=== PATIENT | male | born 1955 | race Two or more races ===

== ENCOUNTER 2017-09-15 08:26 | Inpatient (IN) | payer MEDICARE, BC ==
[2017-09-15] MEDS: SOD CHLORIDE 0.9% 1,000 ML IV ×3 (10:23→22:48)
[2017-09-15 10:34] LABS: ALANINE AMINOTRANSFERASE 36 IU/L (13-69); ALBUMIN 2.5 g/dl (3.3-4.9); ALBUMIN/GLOBULIN RATIO 0.75; ALKALINE PHOSPHATASE 126 IU/L (42-121); ANION GAP 18 (8-16); ASPARTATE AMINO TRANSFERASE 31 IU/L (15-46); BILIRUBIN,INDIRECT 0.5 mg/dl (0-1.1); BILIRUBIN,TOTAL 0.5 mg/dl (0.2-1.3); BLOOD UREA NITROGEN 92 mg/dl (7-20); CALCIUM 8.6 mg/dl (8.4-10.2); CARBON DIOXIDE 27 mmol/L (21-31); CHLORIDE 96 mmol/L (97-110); CREATININE 3.52 mg/dl (0.61-1.24); GLUCOSE 312 mg/dl (70-220); POTASSIUM 3.9 mmol/L (3.5-5.1); SODIUM 137 mmol/L (135-144); TOTAL PROTEIN 5.8 g/dl (6.1-8.1)
[2017-09-15 10:38] LABS: INR 1.22; PROTIME 15.6 Sec (11.9-14.9); PT RATIO 1.2
[2017-09-15 10:39] LABS: ABNORMAL IP MESSAGE 1; HEMATOCRIT 11.6 % (42.0-52.0); MEAN CORPUSCULAR VOLUME 93.5 fl (82.0-101.0); MEAN PLATELET VOLUME 11.3 fl (7.4-10.4); PLATELET COUNT 148 10^3/UL (140-415); POSITIVE DIFF @See below; RED BLOOD COUNT 1.24 10^6/ul (4.70-6.10); RED CELL DISTRIBUTION WIDTH 16.7 % (11.5-14.5)
[2017-09-15 10:39] LABS: WHITE BLOOD COUNT 8.4 10^3/ul (4.8-10.8)
[2017-09-15 10:41] LABS: ADD MAN DIFF? YES; HEMOGLOBIN 3.6 g/dl (14.0-18.0)
[2017-09-15 10:44] LABS: TROPONIN-I 0.046 ng/ml (0.00-0.12)
[2017-09-15] MEDS: PANTOPRAZOLE IV 80 MG in SOD CHLORIDE 0.9% 100 ML IVPB (10:44)
[2017-09-15] MEDS: OCTREOTIDE 500 MCG in SOD CHLORIDE 0.9% 49 ML IV (10:45)
[2017-09-15] MEDS: OCTREOTIDE 50 MCG in SOD CHLORIDE 0.9% 25 ML IVPB (10:46)
[2017-09-15 11:34] LABS: ANISOCYTOSIS 2+ (0-0); BAND NEUTROPHILS #M 0.1 10^3/ul (0.0-0.6); BAND NEUTROPHILS % (M) 2 % (0-4); EOSINOPHILS % (M) 2 % (0-7); HYPOCHROMASIA 2+ (0-0); LYMPHOCYTES #M 1.3 10^3/ul (0.8-2.9); LYMPHOCYTES % (M) 16 % (15-51); MICROCYTOSIS 1+ (0-0); MONOCYTE #M 0.3 10^3/ul (0.3-0.9); MONOCYTES % (M) 4 % (0-11); POLYCHROMASIA 3+ (0-0); RBC MORPHOLOGY COMMENT @See below; SEG NEUT #M 6.5 10^3/ul (1.7-7.5); SEGMENTED NEUTROPHILS (M) % 77 % (39-77); WBC MORPHOLOGY COMMENT @See below
[2017-09-15] MEDS ORDERED: ACETAMINOPHEN 325 MG TAB PO (15:00)
[2017-09-15] MEDS: ONDANSETRON 4 MG INJ IV (16:37)
[2017-09-15] MEDS: PANTOPRAZOLE IV 80 MG in SOD CHLORIDE 0.9% 100 ML IV (16:37)
[2017-09-15 17:22] LABS: HEMATOCRIT 15.1 % (42.0-52.0)
[2017-09-15 18:09] LABS: ADD MAN DIFF? NO
[2017-09-15 18:11] LABS: ABNORMAL IP MESSAGE 1; EOSINOPHILS # 0.3 10^3/ul (0.0-0.5); EOSINOPHILS % 4.8 % (0.0-7.0); LYMPHOCYTES # 1.1 10^3/ul (0.8-2.9); LYMPHOCYTES % 18.8 % (15.0-51.0); MEAN CORPUSCULAR HEMOGLOBIN 29.3 pg (29.0-33.0); MEAN CORPUSCULAR HGB CONC 32.7 g/dl (32.0-37.0); MEAN CORPUSCULAR VOLUME 89.8 fl (82.0-101.0); MEAN PLATELET VOLUME 11.1 fl (7.4-10.4); MONOCYTE # 0.5 10^3/ul (0.3-0.9); MONOCYTES % 8.3 % (0.0-11.0); NEUTROPHIL # 3.9 10^3/ul (1.6-7.5); NEUTROPHILS % 67.7 % (39.0-77.0); PLATELET COUNT 100 10^3/UL (140-415); POSITIVE DIFF @See below; RED BLOOD COUNT 1.67 10^6/ul (4.70-6.10); RED CELL DISTRIBUTION WIDTH 15.9 % (11.5-14.5)
[2017-09-15 18:11] LABS: WHITE BLOOD COUNT 5.7 10^3/ul (4.8-10.8)
[2017-09-15] MEDS: SOD CHLORIDE 0.9% 250 ML IV (18:30)
[2017-09-15 18:32] LABS: HEMOGLOBIN 4.9 g/dl (14.0-18.0)
[2017-09-15] MEDS ORDERED: GLUCOSE GEL 15 GRAM TUBE BUCCAL (19:00)
[2017-09-15] MEDS ORDERED: GLUCAGON 1 MG INJ IM (19:00)
[2017-09-15] MEDS ORDERED: GLUCOSE GEL 15 GRAM TUBE PO ×2 (19:00)
[2017-09-15] MEDS ORDERED: DEXTROSE 50% 50 ML SYRINGE IV ×2 (19:00)
[2017-09-15 20:37] LABS: IMMEDIATE SPIN CROSSMATCH 1 8
[2017-09-15] MEDS: INSULIN ASPART [NOVOLOG] 3 ML PEN SC (21:00)
[2017-09-15] MEDS: LACTULOSE 30ML CUP PO (21:00)
[2017-09-15 22:50] LABS: ADD MAN DIFF? NO
[2017-09-15 22:51] LABS: ABNORMAL IP MESSAGE 1; BASOPHILS % 0.3 % (0.0-2.0); EOSINOPHILS # 0.3 10^3/ul (0.0-0.5); EOSINOPHILS % 5.3 % (0.0-7.0); HEMATOCRIT 20.2 % (42.0-52.0); LYMPHOCYTES # 1.3 10^3/ul (0.8-2.9); LYMPHOCYTES % 21.5 % (15.0-51.0); MEAN CORPUSCULAR HGB CONC 33.2 g/dl (32.0-37.0); MEAN CORPUSCULAR VOLUME 87.4 fl (82.0-101.0); MEAN PLATELET VOLUME 10.2 fl (7.4-10.4); MONOCYTE # 0.4 10^3/ul (0.3-0.9); MONOCYTES % 6.9 % (0.0-11.0); NEUTROPHILS % 65.7 % (39.0-77.0); PLATELET COUNT 95 10^3/UL (140-415); POSITIVE DIFF @See below; RED BLOOD COUNT 2.31 10^6/ul (4.70-6.10); RED CELL DISTRIBUTION WIDTH 15.9 % (11.5-14.5)
[2017-09-15 22:51] LABS: WHITE BLOOD COUNT 6.1 10^3/ul (4.8-10.8)
[2017-09-15 22:57] LABS: HEMOGLOBIN 6.7 g/dl (14.0-18.0)
[2017-09-15 23:10] LABS: ANION GAP 12 (8-16); BLOOD UREA NITROGEN 94 mg/dl (7-20); CARBON DIOXIDE 26 mmol/L (21-31); CHLORIDE 99 mmol/L (97-110); CREATININE 3.38 mg/dl (0.61-1.24); GLUCOSE 183 mg/dl (70-220); SODIUM 133 mmol/L (135-144)
[2017-09-16] MEDS: HYPOGLYCEMIA PROTOCOL when Glucose is <70 mg/dL or symptomatic <90 mg/dL. XX (01:38)
[2017-09-16] MEDS: Discontinue current oral sulfonylureas (glyburide, glipizide, and/or glimepiride) prior to XX (01:38)
[2017-09-16] MEDS: ACCU-CHEK XX (02:00)
[2017-09-16] MEDS: INSULIN GLARGINE [LANtus] 3 ML PEN SC ×2 (02:31→20:24)
[2017-09-16] MEDS: ESCITALOPRAM 10 MG TAB PO ×2 (02:31→20:10)
[2017-09-16] MEDS: INSULIN ASPART [NOVOLOG] 3 ML PEN SC ×5 (02:32→20:15)
[2017-09-16] MEDS: SOD CHLORIDE 0.9% 1,000 ML IV ×2 (05:38→19:00)
[2017-09-16] MEDS: NIFEdipine (XL) 30 MG TAB PO (08:09)
[2017-09-16] MEDS: MULTIVITAMINS THERAPEUTIC TAB PO (08:16)
[2017-09-16 10:48] LABS: ABNORMAL IP MESSAGE 1; BASOPHILS % 0.3 % (0.0-2.0); EOSINOPHILS # 0.3 10^3/ul (0.0-0.5); EOSINOPHILS % 5.4 % (0.0-7.0); HEMATOCRIT 19.6 % (42.0-52.0); LYMPHOCYTES # 1.1 10^3/ul (0.8-2.9); MEAN CORPUSCULAR HEMOGLOBIN 28.9 pg (29.0-33.0); MEAN CORPUSCULAR HGB CONC 33.7 g/dl (32.0-37.0); MEAN PLATELET VOLUME 11.3 fl (7.4-10.4); MONOCYTE # 0.4 10^3/ul (0.3-0.9); MONOCYTES % 6.2 % (0.0-11.0); NEUTROPHIL # 4.5 10^3/ul (1.6-7.5); NEUTROPHILS % 70.6 % (39.0-77.0); PLATELET COUNT 109 10^3/UL (140-415); POSITIVE DIFF @See below; RED BLOOD COUNT 2.28 10^6/ul (4.70-6.10)
[2017-09-16 10:48] LABS: WHITE BLOOD COUNT 6.3 10^3/ul (4.8-10.8)
[2017-09-16 10:51] LABS: HEMOGLOBIN 6.6 g/dl (14.0-18.0)
[2017-09-16 10:52] LABS: ANION GAP 13 (8-16); BLOOD UREA NITROGEN 88 mg/dl (7-20); CALCIUM 7.8 mg/dl (8.4-10.2); CARBON DIOXIDE 26 mmol/L (21-31); CHLORIDE 102 mmol/L (97-110); CREATININE 3.26 mg/dl (0.61-1.24); GLUCOSE 136 mg/dl (70-220); PHOSPHORUS 5.1 mg/dl (2.5-4.9); POTASSIUM 3.4 mmol/L (3.5-5.1); SODIUM 138 mmol/L (135-144)
[2017-09-16 10:54] LABS: ADD MAN DIFF? NO
[2017-09-16 16:30] LABS: ADD MAN DIFF? NO
[2017-09-16 16:33] LABS: BASOPHILS % 0.4 % (0.0-2.0); EOSINOPHILS # 0.3 10^3/ul (0.0-0.5); EOSINOPHILS % 3.6 % (0.0-7.0); HEMATOCRIT 26.4 % (42.0-52.0); HEMOGLOBIN 8.9 g/dl (14.0-18.0); LYMPHOCYTES % 14.5 % (15.0-51.0); MEAN CORPUSCULAR HEMOGLOBIN 28.9 pg (29.0-33.0); MEAN CORPUSCULAR HGB CONC 33.7 g/dl (32.0-37.0); MEAN CORPUSCULAR VOLUME 85.7 fl (82.0-101.0); MONOCYTE # 0.5 10^3/ul (0.3-0.9); MONOCYTES % 7.4 % (0.0-11.0); NEUTROPHIL # 5.1 10^3/ul (1.6-7.5); NEUTROPHILS % 73.7 % (39.0-77.0); PLATELET COUNT 107 10^3/UL (140-415); RED BLOOD COUNT 3.08 10^6/ul (4.70-6.10); RED CELL DISTRIBUTION WIDTH 15.1 % (11.5-14.5)
[2017-09-16 16:33] LABS: WHITE BLOOD COUNT 6.9 10^3/ul (4.8-10.8)
[2017-09-16 16:57] LABS: BLOOD UREA NITROGEN 55 mg/dl (7-20); CALCIUM 8.1 mg/dl (8.4-10.2); CARBON DIOXIDE 30 mmol/L (21-31); CREATININE 2.47 mg/dl (0.61-1.24); GLUCOSE 144 mg/dl (70-220); POTASSIUM 3.3 mmol/L (3.5-5.1); SODIUM 135 mmol/L (135-144)
[2017-09-16] MEDS: POTASSIUM CHLORIDE (SR) 20 MEQ TAB PO (18:52)
[2017-09-16 19:35] LABS: ANION GAP 13 (8-16)
[2017-09-16 19:36] LABS: CHLORIDE 95 mmol/L (97-110)
[2017-09-16] MEDS: LACTULOSE 30ML CUP PO (20:10)
[2017-09-17] MEDS: ACCU-CHEK XX (02:00)
[2017-09-17] MEDS: SOD CHLORIDE 0.9% 1,000 ML IV ×2 (06:54→20:00)
[2017-09-17] MEDS: MULTIVITAMINS THERAPEUTIC TAB PO (08:11)
[2017-09-17] MEDS: NIFEdipine (XL) 30 MG TAB PO (08:11)
[2017-09-17] MEDS: INSULIN ASPART [NOVOLOG] 3 ML PEN SC ×4 (08:15→21:39)
[2017-09-17 08:31] LABS: ADD MAN DIFF? NO
[2017-09-17 08:38] LABS: WHITE BLOOD COUNT 6.9 10^3/ul (4.8-10.8)
[2017-09-17 08:38] LABS: BASOPHILS % 0.6 % (0.0-2.0); EOSINOPHILS # 0.4 10^3/ul (0.0-0.5); EOSINOPHILS % 5.2 % (0.0-7.0); HEMATOCRIT 27.3 % (42.0-52.0); HEMOGLOBIN 9.4 g/dl (14.0-18.0); LYMPHOCYTES # 1.2 10^3/ul (0.8-2.9); LYMPHOCYTES % 17.3 % (15.0-51.0); MEAN CORPUSCULAR HEMOGLOBIN 29.4 pg (29.0-33.0); MEAN CORPUSCULAR HGB CONC 34.4 g/dl (32.0-37.0); MEAN CORPUSCULAR VOLUME 85.3 fl (82.0-101.0); MEAN PLATELET VOLUME 11.4 fl (7.4-10.4); MONOCYTE # 0.6 10^3/ul (0.3-0.9); MONOCYTES % 9.2 % (0.0-11.0); NEUTROPHIL # 4.6 10^3/ul (1.6-7.5); NEUTROPHILS % 67.4 % (39.0-77.0); PLATELET COUNT 105 10^3/UL (140-415); RED CELL DISTRIBUTION WIDTH 15.2 % (11.5-14.5)
[2017-09-17 09:03] LABS: ALANINE AMINOTRANSFERASE 39 IU/L (13-69); ALBUMIN 2.7 g/dl (3.3-4.9); ALBUMIN/GLOBULIN RATIO 0.79; ALKALINE PHOSPHATASE 102 IU/L (42-121); ANION GAP 14 (8-16); ASPARTATE AMINO TRANSFERASE 48 IU/L (15-46); BLOOD UREA NITROGEN 60 mg/dl (7-20); CALCIUM 7.8 mg/dl (8.4-10.2); CARBON DIOXIDE 26 mmol/L (21-31); CHLORIDE 98 mmol/L (97-110); CREATININE 2.82 mg/dl (0.61-1.24); GLUCOSE 223 mg/dl (70-220); POTASSIUM 3.4 mmol/L (3.5-5.1); SODIUM 135 mmol/L (135-144); TOTAL PROTEIN 6.1 g/dl (6.1-8.1)
[2017-09-17 09:08] LABS: BILIRUBIN,INDIRECT 1.3 mg/dl (0-1.1); BILIRUBIN,TOTAL 1.3 mg/dl (0.2-1.3)
[2017-09-17] MEDS: ACETAMINOPHEN 500 MG TAB PO (14:01)
[2017-09-17] MEDS: POTASSIUM CHLORIDE (SR) 10 MEQ TAB PO (14:01)
[2017-09-17] MEDS: LACTULOSE 30ML CUP PO (21:32)
[2017-09-17] MEDS: ESCITALOPRAM 10 MG TAB PO (21:32)
[2017-09-17] MEDS: INSULIN GLARGINE [LANtus] 3 ML PEN SC (21:39)
[2017-09-18] MEDS: ACCU-CHEK XX (02:00)
[2017-09-18 07:55] LABS: ADD MAN DIFF? NO
[2017-09-18 07:59] LABS: BASOPHILS % 0.6 % (0.0-2.0); EOSINOPHILS # 0.3 10^3/ul (0.0-0.5); EOSINOPHILS % 6.5 % (0.0-7.0); HEMATOCRIT 25.9 % (42.0-52.0); HEMOGLOBIN 8.6 g/dl (14.0-18.0); LYMPHOCYTES # 1.2 10^3/ul (0.8-2.9); LYMPHOCYTES % 23.6 % (15.0-51.0); MEAN CORPUSCULAR HEMOGLOBIN 29.2 pg (29.0-33.0); MEAN CORPUSCULAR HGB CONC 33.2 g/dl (32.0-37.0); MEAN CORPUSCULAR VOLUME 87.8 fl (82.0-101.0); MEAN PLATELET VOLUME 10.8 fl (7.4-10.4); MONOCYTE # 0.5 10^3/ul (0.3-0.9); MONOCYTES % 9.8 % (0.0-11.0); NEUTROPHIL # 3.1 10^3/ul (1.6-7.5); NEUTROPHILS % 59.1 % (39.0-77.0); PLATELET COUNT 102 10^3/UL (140-415); RED BLOOD COUNT 2.95 10^6/ul (4.70-6.10); RED CELL DISTRIBUTION WIDTH 15.2 % (11.5-14.5)
[2017-09-18 07:59] LABS: WHITE BLOOD COUNT 5.2 10^3/ul (4.8-10.8)
[2017-09-18 08:26] LABS: ANION GAP 14 (8-16); BLOOD UREA NITROGEN 62 mg/dl (7-20); CALCIUM 7.8 mg/dl (8.4-10.2); CARBON DIOXIDE 27 mmol/L (21-31); CHLORIDE 100 mmol/L (97-110); CREATININE 3.06 mg/dl (0.61-1.24); GLUCOSE 218 mg/dl (70-220); POTASSIUM 3.7 mmol/L (3.5-5.1); SODIUM 137 mmol/L (135-144)
[2017-09-18] MEDS: SOD CHLORIDE 0.9% 1,000 ML IV ×2 (08:30→21:00)
[2017-09-18] MEDS: MULTIVITAMINS THERAPEUTIC TAB PO (08:55)
[2017-09-18] MEDS: INSULIN ASPART [NOVOLOG] 3 ML PEN SC ×4 (08:57→21:18)
[2017-09-18] MEDS: NIFEdipine (XL) 30 MG TAB PO (09:00)
[2017-09-18] MEDS: LACTULOSE 30ML CUP PO (21:20)
[2017-09-18] MEDS: INSULIN GLARGINE [LANtus] 3 ML PEN SC (21:20)
[2017-09-18] MEDS: ESCITALOPRAM 10 MG TAB PO (21:20)
[2017-09-19] MEDS: ACCU-CHEK XX (02:00)
[2017-09-19] MEDS: SOD CHLORIDE 0.9% 1,000 ML IV ×2 (09:30→21:15)
[2017-09-19 09:36] LABS: ADD MAN DIFF? NO
[2017-09-19] MEDS: MULTIVITAMINS THERAPEUTIC TAB PO (09:37)
[2017-09-19 09:38] LABS: WHITE BLOOD COUNT 4.3 10^3/ul (4.8-10.8)
[2017-09-19 09:38] LABS: BASOPHILS % 0.7 % (0.0-2.0); EOSINOPHILS # 0.3 10^3/ul (0.0-0.5); EOSINOPHILS % 6.8 % (0.0-7.0); HEMATOCRIT 24.6 % (42.0-52.0); HEMOGLOBIN 8.3 g/dl (14.0-18.0); LYMPHOCYTES # 0.9 10^3/ul (0.8-2.9); LYMPHOCYTES % 20.6 % (15.0-51.0); MEAN CORPUSCULAR HEMOGLOBIN 29.6 pg (29.0-33.0); MEAN CORPUSCULAR HGB CONC 33.7 g/dl (32.0-37.0); MEAN CORPUSCULAR VOLUME 87.9 fl (82.0-101.0); MEAN PLATELET VOLUME 11.5 fl (7.4-10.4); MONOCYTE # 0.4 10^3/ul (0.3-0.9); MONOCYTES % 9.6 % (0.0-11.0); NEUTROPHIL # 2.7 10^3/ul (1.6-7.5); NEUTROPHILS % 62.1 % (39.0-77.0); PLATELET COUNT 100 10^3/UL (140-415); RED CELL DISTRIBUTION WIDTH 15.1 % (11.5-14.5)
[2017-09-19] MEDS: NIFEdipine (XL) 30 MG TAB PO (09:38)
[2017-09-19] MEDS: INSULIN ASPART [NOVOLOG] 3 ML PEN SC ×4 (09:40→21:14)
[2017-09-19] MEDS: BISACODYL (EC) 5 MG TAB PO ×2 (12:33→21:12)
[2017-09-19] MEDS: PEG/ELECTROLYTES 4L BTL PO ×2 (14:10→19:49)
[2017-09-19] MEDS: LACTULOSE 30ML CUP PO (21:12)
[2017-09-19] MEDS: ESCITALOPRAM 10 MG TAB PO (21:12)
[2017-09-19] MEDS: INSULIN GLARGINE [LANtus] 3 ML PEN SC (21:15)
[2017-09-20] MEDS: ACCU-CHEK XX (02:00)
[2017-09-20] MEDS: INSULIN ASPART [NOVOLOG] 3 ML PEN SC ×4 (08:00→20:37)
[2017-09-20 08:37] LABS: WHITE BLOOD COUNT 4.1 10^3/ul (4.8-10.8)
[2017-09-20 08:37] LABS: ABNORMAL IP MESSAGE 1; ADD MAN DIFF? NO; BASOPHILS % 0.5 % (0.0-2.0); EOSINOPHILS # 0.3 10^3/ul (0.0-0.5); EOSINOPHILS % 6.8 % (0.0-7.0); HEMATOCRIT 25.9 % (42.0-52.0); HEMOGLOBIN 8.4 g/dl (14.0-18.0); LYMPHOCYTES # 0.9 10^3/ul (0.8-2.9); LYMPHOCYTES % 21.5 % (15.0-51.0); MEAN CORPUSCULAR HEMOGLOBIN 29.2 pg (29.0-33.0); MEAN CORPUSCULAR HGB CONC 32.4 g/dl (32.0-37.0); MEAN CORPUSCULAR VOLUME 89.9 fl (82.0-101.0); MONOCYTE # 0.4 10^3/ul (0.3-0.9); MONOCYTES % 8.8 % (0.0-11.0); NEUTROPHIL # 2.6 10^3/ul (1.6-7.5); NEUTROPHILS % 62.2 % (39.0-77.0); PLATELET COUNT 96 10^3/UL (140-415); POSITIVE DIFF @See below; RED BLOOD COUNT 2.88 10^6/ul (4.70-6.10); RED CELL DISTRIBUTION WIDTH 15.7 % (11.5-14.5)
[2017-09-20 08:59] LABS: INR 1.06; PARTIAL THROMBOPLASTIN TIME 34.3 Sec (25.0-35.0); PROTIME 13.9 Sec (11.9-14.9); PT RATIO 1.1
[2017-09-20 09:09] LABS: ALANINE AMINOTRANSFERASE 42 IU/L (13-69); ALBUMIN 2.7 g/dl (3.3-4.9); ALBUMIN/GLOBULIN RATIO 0.79; ALKALINE PHOSPHATASE 126 IU/L (42-121); ANION GAP 14 (8-16); ASPARTATE AMINO TRANSFERASE 53 IU/L (15-46); BLOOD UREA NITROGEN 35 mg/dl (7-20); CARBON DIOXIDE 30 mmol/L (21-31); CHLORIDE 106 mmol/L (97-110); CREATININE 2.32 mg/dl (0.61-1.24); GLUCOSE 109 mg/dl (70-220); POTASSIUM 3.4 mmol/L (3.5-5.1); SODIUM 147 mmol/L (135-144); TOTAL PROTEIN 6.1 g/dl (6.1-8.1)
[2017-09-20] MEDS: DEXTROSE 5% 1,000 ML IV (09:38)
[2017-09-20] MEDS: SOD CHLORIDE 0.9% 1,000 ML IV (09:38)
[2017-09-20] MEDS: PROPOFOL 40 ML (15:07)
[2017-09-20] MEDS: LIDOCAINE 2% (SDV) 5 ML INJ (15:07)
[2017-09-20] MEDS: MULTIVITAMINS THERAPEUTIC TAB PO (17:25)
[2017-09-20] MEDS: NIFEdipine (XL) 30 MG TAB PO (17:26)
[2017-09-20] MEDS: EPOETIN 10000 UNITS/1 ML INJ (ESRD) SC (17:32)
[2017-09-20] MEDS: ESCITALOPRAM 10 MG TAB PO (20:31)
[2017-09-20] MEDS: LACTULOSE 30ML CUP PO (20:31)
[2017-09-20] MEDS: INSULIN GLARGINE [LANtus] 3 ML PEN SC (20:36)
[2017-09-21] MEDS: ACCU-CHEK XX (01:38)
[2017-09-21] MEDS: NIFEdipine (XL) 30 MG TAB PO (08:29)
[2017-09-21] MEDS: MULTIVITAMINS THERAPEUTIC TAB PO (08:29)
[2017-09-21] MEDS: INSULIN ASPART [NOVOLOG] 3 ML PEN SC ×4 (10:35→21:43)
[2017-09-21 15:55] LABS: HEMOGLOBIN 8.5 g/dl (14.0-18.0)
[2017-09-21] MEDS: ESCITALOPRAM 10 MG TAB PO (21:42)
[2017-09-21] MEDS: INSULIN GLARGINE [LANtus] 3 ML PEN SC (21:43)
[2017-09-21] MEDS: LACTULOSE 30ML CUP PO (21:44)
[2017-09-22] MEDS: ACCU-CHEK XX (02:32)
[2017-09-22] MEDS: ACETAMINOPHEN 500 MG TAB PO (02:36)
[2017-09-22] MEDS: INSULIN ASPART [NOVOLOG] 3 ML PEN SC ×2 (08:00→11:32)
[2017-09-22] MEDS: NIFEdipine (XL) 30 MG TAB PO (08:34)
[2017-09-22] MEDS: MULTIVITAMINS THERAPEUTIC TAB PO (08:34)
[2017-09-22 10:05] LABS: ADD MAN DIFF? NO
[2017-09-22 10:16] LABS: BASOPHILS % 0.8 % (0.0-2.0); EOSINOPHILS # 0.4 10^3/ul (0.0-0.5); EOSINOPHILS % 8.6 % (0.0-7.0); HEMATOCRIT 26.7 % (42.0-52.0); HEMOGLOBIN 8.6 g/dl (14.0-18.0); LYMPHOCYTES # 1.1 10^3/ul (0.8-2.9); MEAN CORPUSCULAR HGB CONC 32.2 g/dl (32.0-37.0); MEAN CORPUSCULAR VOLUME 89.9 fl (82.0-101.0); MEAN PLATELET VOLUME 11.5 fl (7.4-10.4); MONOCYTE # 0.3 10^3/ul (0.3-0.9); MONOCYTES % 6.6 % (0.0-11.0); NEUTROPHIL # 3.2 10^3/ul (1.6-7.5); NEUTROPHILS % 62.6 % (39.0-77.0); PLATELET COUNT 108 10^3/UL (140-415); RED BLOOD COUNT 2.97 10^6/ul (4.70-6.10); RED CELL DISTRIBUTION WIDTH 15.1 % (11.5-14.5)
[2017-09-22 10:16] LABS: WHITE BLOOD COUNT 5.1 10^3/ul (4.8-10.8)
[2017-09-22 10:38] LABS: ALANINE AMINOTRANSFERASE 39 IU/L (13-69); ALBUMIN 2.9 g/dl (3.3-4.9); ALBUMIN/GLOBULIN RATIO 0.76; ALKALINE PHOSPHATASE 148 IU/L (42-121); ANION GAP 14 (8-16); ASPARTATE AMINO TRANSFERASE 50 IU/L (15-46); BILIRUBIN,INDIRECT 0.7 mg/dl (0-1.1); BILIRUBIN,TOTAL 0.7 mg/dl (0.2-1.3); BLOOD UREA NITROGEN 27 mg/dl (7-20); CALCIUM 8.1 mg/dl (8.4-10.2); CARBON DIOXIDE 30 mmol/L (21-31); CHLORIDE 101 mmol/L (97-110); CREATININE 2.42 mg/dl (0.61-1.24); GLUCOSE 139 mg/dl (70-220); POTASSIUM 3.5 mmol/L (3.5-5.1); SODIUM 141 mmol/L (135-144); TOTAL PROTEIN 6.7 g/dl (6.1-8.1)
== END 2017-09-22 16:21 | disposition home or self-care (01) | DRG 393 ==
LOC: MS4 14:51 → E/R 08:26
PROC: 0DJD8ZZ Inspection of Lower Intestinal Tract, Via Natural or Artificial Opening Endoscopic (ICD-10-PCS; principal; 2017-09-20 14:50)
PROC: 30233N1 Transfusion of Nonautologous Red Blood Cells into Peripheral Vein, Percutaneous Approach (ICD-10-PCS; 2017-09-20 14:50)
DX: K64.4 Residual hemorrhoidal skin tags (principal); N18.6 End stage renal disease; K76.6 Portal hypertension; I12.0 Hypertensive chronic kidney disease with stage 5 chronic kidney disease or end stage renal disease; D62 Acute posthemorrhagic anemia; E11.22 Type 2 diabetes mellitus with diabetic chronic kidney disease; Z99.2 Dependence on renal dialysis; B19.20 Unspecified viral hepatitis C without hepatic coma; K74.69 Other cirrhosis of liver; E66.9 Obesity, unspecified; Z68.32 Body mass index [BMI] 32.0-32.9, adult; G47.33 Obstructive sleep apnea (adult) (pediatric)
CPT/HCPCS: 36415; 36430; 71010; 80048; 80053; 82962; 84100; 84484; 85014; 85018; 85025; 85610; 85730; 86850; 86900; 86901; 86920; 87081; 90935; 96374; 96375; 96376; 97162; 99291-25

== ENCOUNTER 2017-09-25 09:42 | Inpatient (IN) | payer MEDICARE, BC ==
[2017-09-25 12:16] LABS: ABNORMAL IP MESSAGE 1; HEMATOCRIT 16.1 % (42.0-52.0); MEAN CORPUSCULAR HGB CONC 31.7 g/dl (32.0-37.0); MEAN CORPUSCULAR VOLUME 91.5 fl (82.0-101.0); MEAN PLATELET VOLUME 11.9 fl (7.4-10.4); PLATELET COUNT 84 10^3/UL (140-415); POSITIVE DIFF @See below; RED BLOOD COUNT 1.76 10^6/ul (4.70-6.10); RED CELL DISTRIBUTION WIDTH 15.7 % (11.5-14.5)
[2017-09-25 12:16] LABS: WHITE BLOOD COUNT 4.8 10^3/ul (4.8-10.8)
[2017-09-25 12:18] LABS: INR 1.12; PROTIME 14.6 Sec (11.9-14.9); PT RATIO 1.1
[2017-09-25 12:19] LABS: PARTIAL THROMBOPLASTIN TIME 34.5 Sec (25.0-35.0)
[2017-09-25 12:24] LABS: ADD MAN DIFF? YES; HEMOGLOBIN 5.1 g/dl (14.0-18.0)
[2017-09-25 12:25] LABS: PATH REVIEW? YES
[2017-09-25 12:27] LABS: ALANINE AMINOTRANSFERASE 33 IU/L (13-69); ALBUMIN 2.1 g/dl (3.3-4.9); ALBUMIN/GLOBULIN RATIO 0.72; ALKALINE PHOSPHATASE 99 IU/L (42-121); ANION GAP 12 (8-16); ASPARTATE AMINO TRANSFERASE 26 IU/L (15-46); BILIRUBIN,INDIRECT 0.2 mg/dl (0-1.1); BILIRUBIN,TOTAL 0.2 mg/dl (0.2-1.3); BLOOD UREA NITROGEN 78 mg/dl (7-20); CALCIUM 7.6 mg/dl (8.4-10.2); CARBON DIOXIDE 25 mmol/L (21-31); CHLORIDE 103 mmol/L (97-110); CREATININE 2.96 mg/dl (0.61-1.24); GLUCOSE 217 mg/dl (70-220); LIPASE 384 U/L (23-300); POTASSIUM 4.7 mmol/L (3.5-5.1); SODIUM 135 mmol/L (135-144)
[2017-09-25 12:38] LABS: TROPONIN-I 0.028 ng/ml (0.00-0.12)
[2017-09-25 13:04] LABS: ANISOCYTOSIS 1+ (0-0); BAND NEUTROPHILS % (M) 1 % (0-4); BASOPHILS % (M) 1 % (0-2); EOSINOPHILS % (M) 8 % (0-7); HYPOCHROMASIA 1+ (0-0); LYMPHOCYTES % (M) 21 % (15-51); MICROCYTOSIS 1+ (0-0); MONOCYTE #M 0.1 10^3/ul (0.3-0.9); MONOCYTES % (M) 4 % (0-11); PLATELET ESTIMATE DECREASED; POLYCHROMASIA 1+ (0-0); SEG NEUT #M 3.1 10^3/ul (1.7-7.5); SEGMENTED NEUTROPHILS (M) % 65 % (39-77); SMUDGE%M 2 % (0-0)
[2017-09-25 19:55] LABS: ADD UMIC NO; UR ASCORBIC ACID NEGATIVE (NEGATIVE); UR BILIRUBIN (Dip) NEGATIVE (NEGATIVE); UR BLOOD (Dip) NEGATIVE (NEGATIVE); UR CLARITY CLEAR (CLEAR); UR COLOR STRAW (YELLOW); UR GLUCOSE (Dip) 1+ mg/dL (NEGATIVE); UR KETONES (Dip) NEGATIVE (NEGATIVE); UR LEUKOCYTE ESTERASE (Dip) NEGATIVE Leu/ul (NEGATIVE); UR NITRITE (Dip) NEGATIVE (NEGATIVE); UR SPECIFIC GRAVITY (Dip) 1.008 (1.003-1.030); UR TOTAL PROTEIN (Dip) NEGATIVE (NEGATIVE); UR UROBILINOGEN (Dip) NEGATIVE (NEGATIVE)
[2017-09-25 20:33] LABS: CREATININE,URINE RANDOM 35.85 mg/dl (20-370); PROTEIN/CREAT RATIO 0.97 RATIO
[2017-09-26 06:50] LABS: ADD MAN DIFF? NO
[2017-09-26 06:57] LABS: ABNORMAL IP MESSAGE 1; BASOPHILS % 0.3 % (0.0-2.0); EOSINOPHILS # 0.4 10^3/ul (0.0-0.5); EOSINOPHILS % 5.6 % (0.0-7.0); HEMATOCRIT 18.3 % (42.0-52.0); LYMPHOCYTES % 15.9 % (15.0-51.0); MEAN CORPUSCULAR HEMOGLOBIN 29.6 pg (29.0-33.0); MEAN CORPUSCULAR HGB CONC 31.7 g/dl (32.0-37.0); MEAN CORPUSCULAR VOLUME 93.4 fl (82.0-101.0); MONOCYTE # 0.4 10^3/ul (0.3-0.9); MONOCYTES % 6.1 % (0.0-11.0); NEUTROPHIL # 4.5 10^3/ul (1.6-7.5); NEUTROPHILS % 71.8 % (39.0-77.0); PLATELET COUNT 89 10^3/UL (140-415); POSITIVE DIFF @See below; RED BLOOD COUNT 1.96 10^6/ul (4.70-6.10); RED CELL DISTRIBUTION WIDTH 15.2 % (11.5-14.5)
[2017-09-26 06:57] LABS: WHITE BLOOD COUNT 6.2 10^3/ul (4.8-10.8)
[2017-09-26 07:10] LABS: HEMOGLOBIN 5.8 g/dl (14.0-18.0)
[2017-09-26 07:37] LABS: ALANINE AMINOTRANSFERASE 33 IU/L (13-69); ALBUMIN 1.9 g/dl (3.3-4.9); ALBUMIN/GLOBULIN RATIO 0.73; ALKALINE PHOSPHATASE 107 IU/L (42-121); ANION GAP 12 (8-16); ASPARTATE AMINO TRANSFERASE 26 IU/L (15-46); BILIRUBIN,INDIRECT 0.2 mg/dl (0-1.1); BILIRUBIN,TOTAL 0.2 mg/dl (0.2-1.3); BLOOD UREA NITROGEN 94 mg/dl (7-20); CALCIUM 7.5 mg/dl (8.4-10.2); CARBON DIOXIDE 22 mmol/L (21-31); CHLORIDE 107 mmol/L (97-110); CREATININE 2.79 mg/dl (0.61-1.24); GLUCOSE 231 mg/dl (70-220); MAGNESIUM 2.1 mg/dl (1.7-2.5); POTASSIUM 4.3 mmol/L (3.5-5.1); SODIUM 137 mmol/L (135-144); TOTAL PROTEIN 4.5 g/dl (6.1-8.1)
[2017-09-26] MEDS: SOD CHLORIDE 0.9% 250 ML IV (07:59)
[2017-09-26] MEDS ORDERED: DEXTROSE 50% 50 ML SYRINGE IV ×2 (15:00)
[2017-09-26] MEDS ORDERED: GLUCOSE GEL 15 GRAM TUBE PO ×2 (15:00)
[2017-09-26] MEDS ORDERED: GLUCOSE GEL 15 GRAM TUBE BUCCAL (15:00)
[2017-09-26] MEDS ORDERED: GLUCAGON 1 MG INJ IM (15:00)
[2017-09-26 15:01] LABS: HEMOGLOBIN 7.7 g/dl (14.0-18.0)
[2017-09-26] MEDS: Insulin NOVOLOG SS MILD Algorithm (SS with meals and bedtime) SC ×2 (17:20→21:41)
[2017-09-26] MEDS ORDERED: INSULIN ASPART [NOVOLOG] 3 ML PEN SC (18:00)
[2017-09-26 18:41] LABS: HEMATOCRIT 25.5 % (42.0-52.0); HEMOGLOBIN 8.3 g/dl (14.0-18.0)
[2017-09-26 19:46] LABS: OCCULT BLOOD STOOL POSITIVE (NEGATIVE)
[2017-09-26] MEDS: INSULIN GLARGINE [LANtus] 3 ML PEN SC (21:40)
[2017-09-27 00:50] LABS: HEMATOCRIT 20.4 % (42.0-52.0)
[2017-09-27 00:58] LABS: HEMOGLOBIN 6.7 g/dl (14.0-18.0)
[2017-09-27] MEDS: ACETAMINOPHEN 500 MG TAB PO ×2 (01:41→19:48)
[2017-09-27] MEDS: ACCUCHECK AT 2AM (Patients on SS coverage) XX (02:00)
[2017-09-27 02:01] LABS: HEMATOCRIT 20.5 % (42.0-52.0)
[2017-09-27 02:06] LABS: HEMOGLOBIN 6.9 g/dl (14.0-18.0)
[2017-09-27] MEDS: morphine 4 MG/ML VIAL IV (02:23)
[2017-09-27] MEDS: SOD CHLORIDE 0.9% 250 ML IV* (03:10)
[2017-09-27] MEDS: SOD CHLORIDE 0.9% 100 ML ×2 (04:00→16:10)
[2017-09-27] MEDS: ONDANSETRON 4 MG INJ IV ×2 (07:19→22:37)
[2017-09-27] MEDS: Insulin NOVOLOG SS MILD Algorithm (SS with meals and bedtime) SC ×4 (08:16→21:21)
[2017-09-27] MEDS: LIDOCAINE 1% (MPF) 5 ML VIAL SC ×2 (11:00→14:50)
[2017-09-27] MEDS: NIFEdipine (XL) 30 MG TAB PO (12:03)
[2017-09-27 13:30] LABS: ADD MAN DIFF? NO
[2017-09-27 13:32] LABS: ABNORMAL IP MESSAGE 1; BASOPHILS % 0.5 % (0.0-2.0); EOSINOPHILS # 0.4 10^3/ul (0.0-0.5); EOSINOPHILS % 6.4 % (0.0-7.0); HEMATOCRIT 24.1 % (42.0-52.0); HEMOGLOBIN 7.9 g/dl (14.0-18.0); LYMPHOCYTES # 0.8 10^3/ul (0.8-2.9); LYMPHOCYTES % 13.1 % (15.0-51.0); MEAN CORPUSCULAR HEMOGLOBIN 28.7 pg (29.0-33.0); MEAN CORPUSCULAR HGB CONC 32.8 g/dl (32.0-37.0); MEAN CORPUSCULAR VOLUME 87.6 fl (82.0-101.0); MEAN PLATELET VOLUME 10.8 fl (7.4-10.4); MONOCYTE # 0.4 10^3/ul (0.3-0.9); MONOCYTES % 6.1 % (0.0-11.0); NEUTROPHIL # 4.7 10^3/ul (1.6-7.5); NEUTROPHILS % 73.6 % (39.0-77.0); PLATELET COUNT 98 10^3/UL (140-415); POSITIVE DIFF @See below; RED BLOOD COUNT 2.75 10^6/ul (4.70-6.10)
[2017-09-27 13:32] LABS: WHITE BLOOD COUNT 6.4 10^3/ul (4.8-10.8)
[2017-09-27 13:50] LABS: ALANINE AMINOTRANSFERASE 35 IU/L (13-69); ALBUMIN 2.1 g/dl (3.3-4.9); ALBUMIN/GLOBULIN RATIO 0.72; ALKALINE PHOSPHATASE 90 IU/L (42-121); ANION GAP 11 (8-16); ASPARTATE AMINO TRANSFERASE 35 IU/L (15-46); BILIRUBIN,INDIRECT 0.7 mg/dl (0-1.1); BILIRUBIN,TOTAL 0.7 mg/dl (0.2-1.3); BLOOD UREA NITROGEN 104 mg/dl (7-20); CALCIUM 7.9 mg/dl (8.4-10.2); CARBON DIOXIDE 21 mmol/L (21-31); CHLORIDE 109 mmol/L (97-110); CREATININE 2.86 mg/dl (0.61-1.24); GLUCOSE 203 mg/dl (70-220); POTASSIUM 4.2 mmol/L (3.5-5.1); SODIUM 137 mmol/L (135-144)
[2017-09-27] MEDS: BARIUM SULF 2% 450 ML BTL (BERRY SMOOTHIE) PO (13:57)
[2017-09-27] MEDS: PIPER-TAZO 3.375 GM IV (PMX) 50 ML IV (15:27)
[2017-09-27] MEDS: OCTREOTIDE 500 MCG in DEXTROSE 5% 49 ML IV (15:36)
[2017-09-27] MEDS: PANTOPRAZOLE 40 MG INJ IV (17:20)
[2017-09-27] MEDS ORDERED: PANTOPRAZOLE (EC) 40 MG TAB PO (18:00)
[2017-09-27 18:26] LABS: HEMATOCRIT 23.7 % (42.0-52.0); HEMOGLOBIN 7.9 g/dl (14.0-18.0)
[2017-09-27] MEDS: SOD CHLORIDE 0.9% 1,000 ML IV (19:30)
[2017-09-27 20:19] LABS: IMMEDIATE SPIN CROSSMATCH 1 10
[2017-09-27] MEDS: ESCITALOPRAM 10 MG TAB PO (21:17)
[2017-09-27] MEDS: INSULIN GLARGINE [LANtus] 3 ML PEN SC (21:19)
[2017-09-28] MEDS: ACCUCHECK AT 2AM (Patients on SS coverage) XX (02:00)
[2017-09-28 02:24] LABS: HEMATOCRIT 25.6 % (42.0-52.0); HEMOGLOBIN 8.5 g/dl (14.0-18.0)
[2017-09-28] MEDS: morphine 4 MG/ML VIAL IV (04:07)
[2017-09-28] MEDS: OCTREOTIDE 500 MCG in DEXTROSE 5% 49 ML IV (04:08)
[2017-09-28] MEDS: PANTOPRAZOLE 40 MG INJ IV ×2 (06:00→17:47)
[2017-09-28] MEDS: Insulin NOVOLOG SS MILD Algorithm (SS with meals and bedtime) SC ×4 (08:30→20:32)
[2017-09-28] MEDS: SOD CHLORIDE 0.9% 1,000 ML IV (08:53)
[2017-09-28] MEDS: NIFEdipine (XL) 30 MG TAB PO (08:54)
[2017-09-28 09:18] LABS: HEMATOCRIT 23.5 % (42.0-52.0); HEMOGLOBIN 7.9 g/dl (14.0-18.0)
[2017-09-28 09:38] LABS: ALANINE AMINOTRANSFERASE 41 IU/L (13-69); ALBUMIN 2.1 g/dl (3.3-4.9); ALKALINE PHOSPHATASE 87 IU/L (42-121); ANION GAP 12 (8-16); ASPARTATE AMINO TRANSFERASE 37 IU/L (15-46); BILIRUBIN,INDIRECT 0.9 mg/dl (0-1.1); BILIRUBIN,TOTAL 0.9 mg/dl (0.2-1.3); BLOOD UREA NITROGEN 92 mg/dl (7-20); CALCIUM 7.5 mg/dl (8.4-10.2); CARBON DIOXIDE 22 mmol/L (21-31); CHLORIDE 111 mmol/L (97-110); CREATININE 2.97 mg/dl (0.61-1.24); GLUCOSE 122 mg/dl (70-220); SODIUM 141 mmol/L (135-144); TOTAL PROTEIN 5.1 g/dl (6.1-8.1)
[2017-09-28] MEDS: ONDANSETRON 4 MG INJ IV ×2 (10:23→19:45)
[2017-09-28 12:31] LABS: HEMATOCRIT 23.1 % (42.0-52.0); HEMOGLOBIN 7.8 g/dl (14.0-18.0)
[2017-09-28] MEDS: CIPROFLOXACIN 400MG/D5W 200 ML IVPB (13:44)
[2017-09-28] MEDS: FUROSEMIDE 40 MG INJ IV (13:44)
[2017-09-28 17:43] LABS: HEMATOCRIT 23.9 % (42.0-52.0); HEMOGLOBIN 7.7 g/dl (14.0-18.0)
[2017-09-28] MEDS: ESCITALOPRAM 10 MG TAB PO (20:26)
[2017-09-28] MEDS: INSULIN GLARGINE [LANtus] 3 ML PEN SC (20:34)
[2017-09-28 21:33] LABS: IMMEDIATE SPIN CROSSMATCH 1 1
[2017-09-29] MEDS: ACCUCHECK AT 2AM (Patients on SS coverage) XX ×2 (00:11→23:11)
[2017-09-29] MEDS: OCTREOTIDE 500 MCG in DEXTROSE 5% 49 ML IV ×2 (00:12→23:04)
[2017-09-29 02:23] LABS: HEMATOCRIT 27.3 % (42.0-52.0); HEMOGLOBIN 8.8 g/dl (14.0-18.0)
[2017-09-29] MEDS: PANTOPRAZOLE 40 MG INJ IV ×2 (05:50→17:50)
[2017-09-29] MEDS: Insulin NOVOLOG SS MILD Algorithm (SS with meals and bedtime) SC ×4 (07:30→21:00)
[2017-09-29] MEDS: NIFEdipine (XL) 30 MG TAB PO (08:52)
[2017-09-29 09:04] LABS: HEMOGLOBIN 8.9 g/dl (14.0-18.0)
[2017-09-29 09:25] LABS: INR 1.15; PROTIME 14.9 Sec (11.9-14.9); PT RATIO 1.2
[2017-09-29 09:28] LABS: LIPASE 191 U/L (23-300)
[2017-09-29 09:43] LABS: ALANINE AMINOTRANSFERASE 34 IU/L (13-69); ALBUMIN 2.4 g/dl (3.3-4.9); ALBUMIN/GLOBULIN RATIO 0.72; ALKALINE PHOSPHATASE 87 IU/L (42-121); ANION GAP 10 (8-16); ASPARTATE AMINO TRANSFERASE 38 IU/L (15-46); BLOOD UREA NITROGEN 80 mg/dl (7-20); CALCIUM 7.9 mg/dl (8.4-10.2); CARBON DIOXIDE 23 mmol/L (21-31); CHLORIDE 111 mmol/L (97-110); CREATININE 3.14 mg/dl (0.61-1.24); GLUCOSE 134 mg/dl (70-220); POTASSIUM 3.8 mmol/L (3.5-5.1); SODIUM 140 mmol/L (135-144); TOTAL PROTEIN 5.7 g/dl (6.1-8.1)
[2017-09-29 11:08] LABS: PHOSPHORUS 4.9 mg/dl (2.5-4.9)
[2017-09-29 11:08] LABS: MAGNESIUM 2.1 mg/dl (1.7-2.5)
[2017-09-29] MEDS: FUROSEMIDE 40 MG TAB PO (11:59)
[2017-09-29 12:17] LABS: HEMATOCRIT 26.8 % (42.0-52.0); HEMOGLOBIN 8.8 g/dl (14.0-18.0)
[2017-09-29] MEDS: CIPROFLOXACIN 400MG/D5W 200 ML IVPB (12:20)
[2017-09-29 18:16] LABS: HEMATOCRIT 25.5 % (42.0-52.0); HEMOGLOBIN 8.4 g/dl (14.0-18.0)
[2017-09-29] MEDS: ESCITALOPRAM 10 MG TAB PO (21:09)
[2017-09-29] MEDS: INSULIN GLARGINE [LANtus] 3 ML PEN SC (21:17)
[2017-09-30 01:44] LABS: HEMATOCRIT 26.6 % (42.0-52.0); HEMOGLOBIN 8.5 g/dl (14.0-18.0)
[2017-09-30] MEDS: morphine 4 MG/ML VIAL IV (01:44)
[2017-09-30] MEDS: PANTOPRAZOLE 40 MG INJ IV (05:14)
[2017-09-30] MEDS: Insulin NOVOLOG SS MILD Algorithm (SS with meals and bedtime) SC ×2 (07:30→12:15)
[2017-09-30 07:36] LABS: HEMATOCRIT 23.9 % (42.0-52.0); HEMOGLOBIN 7.8 g/dl (14.0-18.0)
[2017-09-30 07:52] LABS: ALANINE AMINOTRANSFERASE 33 IU/L (13-69); ALBUMIN 2.1 g/dl (3.3-4.9); ALKALINE PHOSPHATASE 75 IU/L (42-121); ANION GAP 11 (8-16); ASPARTATE AMINO TRANSFERASE 33 IU/L (15-46); BILIRUBIN,INDIRECT 0.6 mg/dl (0-1.1); BILIRUBIN,TOTAL 0.6 mg/dl (0.2-1.3); BLOOD UREA NITROGEN 69 mg/dl (7-20); CALCIUM 7.3 mg/dl (8.4-10.2); CARBON DIOXIDE 22 mmol/L (21-31); CHLORIDE 114 mmol/L (97-110); CREATININE 3.06 mg/dl (0.61-1.24); GLUCOSE 105 mg/dl (70-220); POTASSIUM 3.7 mmol/L (3.5-5.1); SODIUM 143 mmol/L (135-144); TOTAL PROTEIN 5.1 g/dl (6.1-8.1)
[2017-09-30] MEDS: FUROSEMIDE 40 MG TAB PO (08:24)
[2017-09-30] MEDS: NIFEdipine (XL) 30 MG TAB PO (08:24)
[2017-09-30] MEDS: CIPROFLOXACIN 400MG/D5W 200 ML IVPB (12:15)
== END 2017-09-30 14:15 | disposition short-term general hospital (02) | DRG 377 ==
LOC: E/R 09:42 → MS4 13:35
PROC: 30233N1 Transfusion of Nonautologous Red Blood Cells into Peripheral Vein, Percutaneous Approach (ICD-10-PCS; 2017-09-25)
PROC: 30233N1 Transfusion of Nonautologous Red Blood Cells into Peripheral Vein, Percutaneous Approach (ICD-10-PCS; 2017-09-26)
PROC: 30233N1 Transfusion of Nonautologous Red Blood Cells into Peripheral Vein, Percutaneous Approach (ICD-10-PCS; 2017-09-27)
PROC: 02HV33Z Insertion of Infusion Device into Superior Vena Cava, Percutaneous Approach (ICD-10-PCS; 2017-09-27)
PROC: B548ZZA Ultrasonography of Superior Vena Cava, Guidance (ICD-10-PCS; 2017-09-27)
PROC: 30233N1 Transfusion of Nonautologous Red Blood Cells into Peripheral Vein, Percutaneous Approach (ICD-10-PCS; principal; 2017-09-28)
DX: K26.4 Chronic or unspecified duodenal ulcer with hemorrhage (principal); N18.6 End stage renal disease; I13.2 Hypertensive heart and chronic kidney disease with heart failure and with stage 5 chronic kidney disease, or end stage renal disease; K76.6 Portal hypertension; E11.22 Type 2 diabetes mellitus with diabetic chronic kidney disease; E88.09 Other disorders of plasma-protein metabolism, not elsewhere classified; K74.69 Other cirrhosis of liver; D62 Acute posthemorrhagic anemia; B18.2 Chronic viral hepatitis C; G47.33 Obstructive sleep apnea (adult) (pediatric); E66.9 Obesity, unspecified; Z68.36 Body mass index [BMI] 36.0-36.9, adult; Z99.2 Dependence on renal dialysis; Z79.4 Long term (current) use of insulin; I50.9 Heart failure, unspecified; I86.4 Gastric varices; K64.8 Other hemorrhoids; E78.5 Hyperlipidemia, unspecified; K11.20 Sialoadenitis, unspecified; K31.84 Gastroparesis
CPT/HCPCS: 36415; 36430; 36569; 71045; 76937; 80053; 81003; 82270; 82570; 82962; 83690; 83735; 84100; 84484; 85014; 85018; 85025; 85610; 85730; 86644; 86850; 86900; 86901; 86920; 87081; 93005; 96372; 99291-25

== ENCOUNTER 2018-01-01 04:20 | Inpatient (IN) | payer BC, MEDICARE ==
[2018-01-01] MEDS: ONDANSETRON 4 MG INJ IV (05:01)
[2018-01-01] MEDS: HYDROmorphONE 0.5 MG/0.5 ML SYG IV (05:01)
[2018-01-01] MEDS: SOD CHLORIDE 0.9% 1,000 ML IV ×2 (05:01→13:10)
[2018-01-01 05:09] LABS: ADD MAN DIFF? NO
[2018-01-01 05:13] LABS: WHITE BLOOD COUNT 5.7 10^3/ul (4.8-10.8)
[2018-01-01 05:13] LABS: ABNORMAL IP MESSAGE 1; BASOPHILS % 0.4 % (0.0-2.0); EOSINOPHILS # 0.4 10^3/ul (0.0-0.5); EOSINOPHILS % 6.2 % (0.0-7.0); HEMATOCRIT 18.9 % (42.0-52.0); LYMPHOCYTES # 0.8 10^3/ul (0.8-2.9); LYMPHOCYTES % 13.8 % (15.0-51.0); MEAN CORPUSCULAR HEMOGLOBIN 30.6 pg (29.0-33.0); MEAN CORPUSCULAR HGB CONC 30.2 g/dl (32.0-37.0); MEAN CORPUSCULAR VOLUME 101.6 fl (82.0-101.0); MEAN PLATELET VOLUME 11.7 fl (7.4-10.4); MONOCYTE # 0.5 10^3/ul (0.3-0.9); MONOCYTES % 8.8 % (0.0-11.0); NEUTROPHILS % 70.3 % (39.0-77.0); PLATELET COUNT 88 10^3/UL (140-415); POSITIVE DIFF @See below; RED BLOOD COUNT 1.86 10^6/ul (4.70-6.10); RED CELL DISTRIBUTION WIDTH 18.9 % (11.5-14.5)
[2018-01-01 05:22] LABS: HEMOGLOBIN 5.7 g/dl (14.0-18.0)
[2018-01-01 05:32] LABS: ALANINE AMINOTRANSFERASE 25 IU/L (13-69); ALBUMIN 2.9 g/dl (3.3-4.9); ALBUMIN/GLOBULIN RATIO 0.67; ALKALINE PHOSPHATASE 163 IU/L (42-121); ANION GAP 16 (8-16); ASPARTATE AMINO TRANSFERASE 40 IU/L (15-46); BILIRUBIN,INDIRECT 0.5 mg/dl (0-1.1); BILIRUBIN,TOTAL 0.5 mg/dl (0.2-1.3); BLOOD UREA NITROGEN 74 mg/dl (7-20); CALCIUM 8.1 mg/dl (8.4-10.2); CARBON DIOXIDE 28 mmol/L (21-31); CHLORIDE 104 mmol/L (97-110); CREATININE 3.89 mg/dl (0.61-1.24); GLUCOSE 155 mg/dl (70-220); LIPASE 148 U/L (23-300); SODIUM 143 mmol/L (135-144); TOTAL PROTEIN 7.2 g/dl (6.1-8.1)
[2018-01-01 05:35] LABS: INR 1.27; PROTIME 16.1 Sec (11.9-14.9); PT RATIO 1.3
[2018-01-01 05:36] LABS: PARTIAL THROMBOPLASTIN TIME 42.5 Sec (25.0-35.0)
[2018-01-01] MEDS: PANTOPRAZOLE IV 80 MG in SOD CHLORIDE 0.9% 100 ML IV (05:57)
[2018-01-01] MEDS: PANTOPRAZOLE IV 80 MG in SOD CHLORIDE 0.9% 100 ML IVPB (05:57)
[2018-01-01] MEDS ORDERED: ACETAMINOPHEN 325 MG TAB PO (06:30)
[2018-01-01] MEDS ORDERED: ONDANSETRON 4 MG INJ IV ×2 (06:30→10:00)
[2018-01-01] MEDS ORDERED: DEXTROSE 50% 50 ML SYRINGE IV ×2 (10:30)
[2018-01-01] MEDS ORDERED: GLUCOSE GEL 15 GRAM TUBE BUCCAL (10:30)
[2018-01-01] MEDS ORDERED: GLUCOSE GEL 15 GRAM TUBE PO ×2 (10:30)
[2018-01-01] MEDS ORDERED: GLUCAGON 1 MG INJ IM (10:30)
[2018-01-01] MEDS: PROPRANOLOL 10 MG TAB PO ×2 (13:00→21:07)
[2018-01-01] MEDS: INSULIN ASPART [NOVOLOG] 3 ML PEN SC ×3 (13:00→21:00)
[2018-01-01] MEDS: PANTOPRAZOLE 40 MG INJ IV (17:04)
[2018-01-01] MEDS: LACTULOSE 30ML CUP PO (21:07)
[2018-01-01] MEDS: ESCITALOPRAM 10 MG TAB PO (21:08)
[2018-01-02] MEDS: INSULIN ASPART [NOVOLOG] 3 ML PEN SC ×6 (01:00→20:40)
[2018-01-02 05:03] LABS: ADD MAN DIFF? NO
[2018-01-02 05:09] LABS: WHITE BLOOD COUNT 4.4 10^3/ul (4.8-10.8)
[2018-01-02 05:09] LABS: ABNORMAL IP MESSAGE 1; BASOPHILS % 0.5 % (0.0-2.0); EOSINOPHILS # 0.2 10^3/ul (0.0-0.5); HEMATOCRIT 21.9 % (42.0-52.0); LYMPHOCYTES # 0.6 10^3/ul (0.8-2.9); LYMPHOCYTES % 12.8 % (15.0-51.0); MEAN CORPUSCULAR HEMOGLOBIN 30.2 pg (29.0-33.0); MEAN CORPUSCULAR HGB CONC 31.1 g/dl (32.0-37.0); MEAN CORPUSCULAR VOLUME 97.3 fl (82.0-101.0); MEAN PLATELET VOLUME 12.5 fl (7.4-10.4); MONOCYTE # 0.3 10^3/ul (0.3-0.9); MONOCYTES % 6.5 % (0.0-11.0); NEUTROPHIL # 3.3 10^3/ul (1.6-7.5); NEUTROPHILS % 74.7 % (39.0-77.0); PLATELET COUNT 74 10^3/UL (140-415); POSITIVE DIFF @See below; RED BLOOD COUNT 2.25 10^6/ul (4.70-6.10)
[2018-01-02 05:41] LABS: ALANINE AMINOTRANSFERASE 32 IU/L (13-69); ALBUMIN 2.7 g/dl (3.3-4.9); ALBUMIN/GLOBULIN RATIO 0.62; ALKALINE PHOSPHATASE 150 IU/L (42-121); ANION GAP 14 (8-16); ASPARTATE AMINO TRANSFERASE 53 IU/L (15-46); BILIRUBIN,INDIRECT 0.8 mg/dl (0-1.1); BILIRUBIN,TOTAL 0.8 mg/dl (0.2-1.3); BLOOD UREA NITROGEN 43 mg/dl (7-20); CALCIUM 7.7 mg/dl (8.4-10.2); CARBON DIOXIDE 30 mmol/L (21-31); CHLORIDE 100 mmol/L (97-110); CREATININE 2.71 mg/dl (0.61-1.24); GLUCOSE 131 mg/dl (70-220); POTASSIUM 4.3 mmol/L (3.5-5.1); SODIUM 140 mmol/L (135-144)
[2018-01-02] MEDS: PANTOPRAZOLE 40 MG INJ IV ×2 (05:41→17:27)
[2018-01-02 06:21] LABS: HEMOGLOBIN 6.8 g/dl (14.0-18.0)
[2018-01-02 07:17] LABS: OCCULT BLOOD STOOL POSITIVE (NEGATIVE)
[2018-01-02] MEDS: PROPOFOL 20 ML (08:18)
[2018-01-02 08:30] LABS: IMMEDIATE SPIN CROSSMATCH 1 3
[2018-01-02] MEDS ORDERED: EPHEDrine SULFATE 50 MG/5 ML SYG IV (09:00)
[2018-01-02] MEDS ORDERED: morphine (1 MG/ML) 10ML SYRINGE IV ×2 (09:00)
[2018-01-02] MEDS ORDERED: hydrALAzine 20 MG INJ IV (09:00)
[2018-01-02] MEDS ORDERED: DIPHENHYDRAMINE 50 MG INJ IV (09:00)
[2018-01-02] MEDS: PROPRANOLOL 10 MG TAB PO ×3 (09:00→20:39)
[2018-01-02] MEDS ORDERED: OXYCODONE/ACETAMINOPHEN (5/325) TAB PO (09:00)
[2018-01-02] MEDS ORDERED: METOCLOPRAMIDE 10 MG INJ IV (09:00)
[2018-01-02] MEDS ORDERED: ONDANSETRON 4 MG INJ IV (09:00)
[2018-01-02] MEDS ORDERED: LABETALOL HCL 20MG INJ IV (09:00)
[2018-01-02] MEDS: ACETAMINOPHEN 325 MG TAB PO (10:40)
[2018-01-02] MEDS: NITROGLYCERIN (SL) 0.4 MG TAB SL (12:38)
[2018-01-02 14:01] LABS: TROPONIN-I 0.419 ng/ml (0.00-0.12)
[2018-01-02 19:47] LABS: ADD MAN DIFF? NO
[2018-01-02 19:49] LABS: ABNORMAL IP MESSAGE 1; BASOPHILS % 0.7 % (0.0-2.0); EOSINOPHILS # 0.3 10^3/ul (0.0-0.5); EOSINOPHILS % 5.9 % (0.0-7.0); HEMATOCRIT 23.9 % (42.0-52.0); HEMOGLOBIN 7.5 g/dl (14.0-18.0); LYMPHOCYTES # 0.7 10^3/ul (0.8-2.9); LYMPHOCYTES % 16.1 % (15.0-51.0); MEAN CORPUSCULAR HEMOGLOBIN 30.4 pg (29.0-33.0); MEAN CORPUSCULAR HGB CONC 31.4 g/dl (32.0-37.0); MEAN CORPUSCULAR VOLUME 96.8 fl (82.0-101.0); MEAN PLATELET VOLUME 12.5 fl (7.4-10.4); MONOCYTE # 0.4 10^3/ul (0.3-0.9); MONOCYTES % 8.1 % (0.0-11.0); NEUTROPHIL # 3.1 10^3/ul (1.6-7.5); PLATELET COUNT 75 10^3/UL (140-415); POSITIVE DIFF @See below; RED BLOOD COUNT 2.47 10^6/ul (4.70-6.10); RED CELL DISTRIBUTION WIDTH 18.5 % (11.5-14.5)
[2018-01-02 19:49] LABS: WHITE BLOOD COUNT 4.4 10^3/ul (4.8-10.8)
[2018-01-02 20:32] LABS: TROPONIN-I 0.353 ng/ml (0.00-0.12)
[2018-01-02] MEDS: LACTULOSE 30ML CUP PO (20:39)
[2018-01-02] MEDS: ESCITALOPRAM 10 MG TAB PO (20:40)
[2018-01-02] MEDS: AMLODIPINE 5 MG TAB PO (22:04)
[2018-01-02] MEDS: EPOETIN 10000 UNITS/1 ML INJ (ESRD) SC (22:18)
[2018-01-03] MEDS: ACETAMINOPHEN 325 MG TAB PO (01:21)
[2018-01-03] MEDS: HYDROmorphONE 0.5 MG/0.5 ML SYG IV (02:33)
[2018-01-03] MEDS: PANTOPRAZOLE 40 MG INJ IV ×2 (07:00→17:55)
[2018-01-03] MEDS: INSULIN ASPART [NOVOLOG] 3 ML PEN SC ×4 (08:00→21:00)
[2018-01-03] MEDS: PROPRANOLOL 10 MG TAB PO ×2 (08:11→21:05)
[2018-01-03] MEDS: AMLODIPINE 5 MG TAB PO (08:11)
[2018-01-03 09:33] LABS: ADD MAN DIFF? NO
[2018-01-03 09:41] LABS: ABNORMAL IP MESSAGE 1; BASOPHIL # 0.1 10^3/ul (0.0-0.1); EOSINOPHILS # 0.4 10^3/ul (0.0-0.5); HEMATOCRIT 25.6 % (42.0-52.0); HEMOGLOBIN 8.1 g/dl (14.0-18.0); LYMPHOCYTES # 0.8 10^3/ul (0.8-2.9); LYMPHOCYTES % 16.1 % (15.0-51.0); MEAN CORPUSCULAR HEMOGLOBIN 30.2 pg (29.0-33.0); MEAN CORPUSCULAR HGB CONC 31.6 g/dl (32.0-37.0); MEAN CORPUSCULAR VOLUME 95.5 fl (82.0-101.0); MEAN PLATELET VOLUME 12.4 fl (7.4-10.4); MONOCYTE # 0.5 10^3/ul (0.3-0.9); MONOCYTES % 9.3 % (0.0-11.0); NEUTROPHIL # 3.3 10^3/ul (1.6-7.5); NEUTROPHILS % 65.4 % (39.0-77.0); PLATELET COUNT 93 10^3/UL (140-415); POSITIVE DIFF @See below; RED BLOOD COUNT 2.68 10^6/ul (4.70-6.10); RED CELL DISTRIBUTION WIDTH 17.9 % (11.5-14.5)
[2018-01-03 10:00] LABS: ANION GAP 14 (8-16); BLOOD UREA NITROGEN 53 mg/dl (7-20); CALCIUM 7.9 mg/dl (8.4-10.2); CARBON DIOXIDE 28 mmol/L (21-31); CHLORIDE 98 mmol/L (97-110); CREATININE 3.83 mg/dl (0.61-1.24); GLUCOSE 117 mg/dl (70-220); POTASSIUM 4.5 mmol/L (3.5-5.1); SODIUM 135 mmol/L (135-144)
[2018-01-03 10:18] LABS: TROPONIN-I 0.246 ng/ml (0.00-0.12)
[2018-01-03] MEDS: CIPROFLOXACIN 200 MG/D5W IVPB 100 ML IVPB (17:54)
[2018-01-03] MEDS: LACTULOSE 30ML CUP PO ×2 (21:00→21:05)
[2018-01-03] MEDS: ESCITALOPRAM 10 MG TAB PO (21:05)
[2018-01-04] MEDS: HYDROmorphONE 0.5 MG/0.5 ML SYG IV (01:55)
[2018-01-04] MEDS: PANTOPRAZOLE 40 MG INJ IV (05:35)
[2018-01-04] MEDS: INSULIN ASPART [NOVOLOG] 3 ML PEN SC ×2 (08:00→12:00)
[2018-01-04] MEDS: PROPRANOLOL 10 MG TAB PO (08:52)
[2018-01-04] MEDS: AMLODIPINE 5 MG TAB PO (08:52)
[2018-01-04] MEDS ORDERED: EPOETIN 10000 UNITS/1 ML INJ (ESRD) SC (17:00)
== END 2018-01-04 17:00 | disposition home or self-care (01) | DRG 368 ==
LOC: MS4 01-03 00:54 → E/R 04:20 → MS3 06:04
PROC: 06L38CZ Occlusion of Esophageal Vein with Extraluminal Device, Via Natural or Artificial Opening Endoscopic (ICD-10-PCS; principal; 2018-01-02 07:30)
PROC: 30233N1 Transfusion of Nonautologous Red Blood Cells into Peripheral Vein, Percutaneous Approach (ICD-10-PCS; 2018-01-02 07:30)
PROC: 5A1D70Z Performance of Urinary Filtration, Intermittent, Less than 6 Hours Per Day (ICD-10-PCS; 2018-01-02 07:30)
PROC: 5A1D70Z Performance of Urinary Filtration, Intermittent, Less than 6 Hours Per Day (ICD-10-PCS; 2018-01-02 07:30)
DX: I85.01 Esophageal varices with bleeding (principal); N18.6 End stage renal disease; Z68.43 Body mass index [BMI] 50.0-59.9, adult; K76.6 Portal hypertension; I13.2 Hypertensive heart and chronic kidney disease with heart failure and with stage 5 chronic kidney disease, or end stage renal disease; K74.69 Other cirrhosis of liver; E66.9 Obesity, unspecified; D50.0 Iron deficiency anemia secondary to blood loss (chronic); G47.33 Obstructive sleep apnea (adult) (pediatric); E11.22 Type 2 diabetes mellitus with diabetic chronic kidney disease; E78.5 Hyperlipidemia, unspecified; Z79.4 Long term (current) use of insulin; I50.9 Heart failure, unspecified; K31.89 Other diseases of stomach and duodenum; Z87.891 Personal history of nicotine dependence; Z86.19 Personal history of other infectious and parasitic diseases; K31.819 Angiodysplasia of stomach and duodenum without bleeding; D69.6 Thrombocytopenia, unspecified; R07.9 Chest pain, unspecified
CPT/HCPCS: 36415; 36430; 74176; 80048; 80053; 82270; 82962; 83690; 84484; 85025; 85610; 85730; 86850; 86900; 86901; 86920; 90935; 93005; 93306; 96374; 96375; 99291-25

== ENCOUNTER 2018-01-10 12:59 | Inpatient (IN) | payer BC, MEDICARE ==
[2018-01-10] MEDS: ONDANSETRON 4 MG INJ IV ×2 (14:10→16:46)
[2018-01-10] MEDS: SOD CHLORIDE 0.9% 500 ML IV (14:13)
[2018-01-10 14:17] LABS: ADD MAN DIFF? NO
[2018-01-10 14:22] LABS: ABNORMAL IP MESSAGE 1; EOSINOPHILS # 0.3 10^3/ul (0.0-0.5); EOSINOPHILS % 4.2 % (0.0-7.0); HEMATOCRIT 13.6 % (42.0-52.0); LYMPHOCYTES # 0.9 10^3/ul (0.8-2.9); MEAN CORPUSCULAR HEMOGLOBIN 28.5 pg (29.0-33.0); MEAN CORPUSCULAR HGB CONC 28.7 g/dl (32.0-37.0); MEAN CORPUSCULAR VOLUME 99.3 fl (82.0-101.0); MONOCYTE # 0.5 10^3/ul (0.3-0.9); MONOCYTES % 8.1 % (0.0-11.0); NEUTROPHIL # 4.3 10^3/ul (1.6-7.5); NEUTROPHILS % 72.4 % (39.0-77.0); PLATELET COUNT 63 10^3/UL (140-415); POSITIVE DIFF @See below; RED BLOOD COUNT 1.37 10^6/ul (4.70-6.10); RED CELL DISTRIBUTION WIDTH 17.8 % (11.5-14.5)
[2018-01-10 14:29] LABS: HEMOGLOBIN 3.9 g/dl (14.0-18.0)
[2018-01-10 14:30] LABS: PATH REVIEW? YES
[2018-01-10 14:43] LABS: ALANINE AMINOTRANSFERASE 22 IU/L (13-69); ALBUMIN 2.3 g/dl (3.3-4.9); ALBUMIN/GLOBULIN RATIO 0.65; ALKALINE PHOSPHATASE 148 IU/L (42-121); ANION GAP 12 (8-16); ASPARTATE AMINO TRANSFERASE 33 IU/L (15-46); BILIRUBIN,INDIRECT 0.5 mg/dl (0-1.1); BILIRUBIN,TOTAL 0.5 mg/dl (0.2-1.3); BLOOD UREA NITROGEN 48 mg/dl (7-20); CALCIUM 7.6 mg/dl (8.4-10.2); CARBON DIOXIDE 31 mmol/L (21-31); CHLORIDE 100 mmol/L (97-110); CREATININE 1.61 mg/dl (0.61-1.24); GLUCOSE 209 mg/dl (70-220); POTASSIUM 3.8 mmol/L (3.5-5.1); SODIUM 139 mmol/L (135-144); TOTAL PROTEIN 5.8 g/dl (6.1-8.1)
[2018-01-10 14:52] LABS: TROPONIN-I 0.022 ng/ml (0.00-0.12)
[2018-01-10 14:56] LABS: INR 1.21; PROTIME 15.5 Sec (11.9-14.9); PT RATIO 1.2
[2018-01-10 14:57] LABS: PARTIAL THROMBOPLASTIN TIME 38.5 Sec (25.0-35.0)
[2018-01-10 15:25] LABS: IMMEDIATE SPIN CROSSMATCH 1 6
[2018-01-10] MEDS: morphine 4 MG/ML VIAL IV (16:46)
[2018-01-10] MEDS: OCTREOTIDE 50 MCG in SOD CHLORIDE 0.9% 25 ML IVPB (16:46)
[2018-01-10] MEDS: SOD CHLORIDE 0.9% 1,000 ML IV (17:47)
[2018-01-10] MEDS ORDERED: ACETAMINOPHEN 325 MG TAB PO (18:00)
[2018-01-10] MEDS ORDERED: ONDANSETRON 4 MG INJ IV (18:00)
[2018-01-10] MEDS ORDERED: morphine 2 MG INJ IV (20:30)
[2018-01-10] MEDS: LIDOCAINE 1% (MPF) 5 ML VIAL SC (20:30)
[2018-01-10] MEDS: OCTREOTIDE 500 MCG in SOD CHLORIDE 0.9% 49 ML IV (21:22)
[2018-01-10] MEDS: SOD CHLORIDE 0.45% 1,000 ML IV (21:28)
[2018-01-10] MEDS: PANTOPRAZOLE IV 80 MG in SOD CHLORIDE 0.9% 100 ML IVPB (22:20)
[2018-01-10] MEDS: CIPROFLOXACIN 200 MG/D5W IVPB 100 ML IVPB (22:20)
[2018-01-10] MEDS: PANTOPRAZOLE IV 80 MG in SOD CHLORIDE 0.9% 100 ML IV (22:23)
[2018-01-10 22:27] LABS: HEMOGLOBIN 5.6 g/dl (14.0-18.0)
[2018-01-11 06:16] LABS: ADD MAN DIFF? NO
[2018-01-11 06:23] LABS: WHITE BLOOD COUNT 5.6 10^3/ul (4.8-10.8)
[2018-01-11 06:23] LABS: ABNORMAL IP MESSAGE 1; BASOPHILS % 0.5 % (0.0-2.0); EOSINOPHILS # 0.3 10^3/ul (0.0-0.5); EOSINOPHILS % 5.2 % (0.0-7.0); HEMATOCRIT 22.2 % (42.0-52.0); HEMOGLOBIN 7.1 g/dl (14.0-18.0); LYMPHOCYTES # 0.9 10^3/ul (0.8-2.9); LYMPHOCYTES % 15.2 % (15.0-51.0); MEAN CORPUSCULAR HEMOGLOBIN 29.2 pg (29.0-33.0); MEAN CORPUSCULAR VOLUME 91.4 fl (82.0-101.0); MEAN PLATELET VOLUME 12.9 fl (7.4-10.4); MONOCYTE # 0.4 10^3/ul (0.3-0.9); MONOCYTES % 7.1 % (0.0-11.0); NEUTROPHILS % 71.6 % (39.0-77.0); NUCLEATED RED BLOOD CELLS% 0.4 /100WBC (0.0-0.0); PLATELET COUNT 60 10^3/UL (140-415); POSITIVE DIFF @See below; RED BLOOD COUNT 2.43 10^6/ul (4.70-6.10); RED CELL DISTRIBUTION WIDTH 18.2 % (11.5-14.5)
[2018-01-11 07:11] LABS: ALANINE AMINOTRANSFERASE 26 IU/L (13-69); ALBUMIN 2.2 g/dl (3.3-4.9); ALBUMIN/GLOBULIN RATIO 0.62; ALKALINE PHOSPHATASE 114 IU/L (42-121); ASPARTATE AMINO TRANSFERASE 41 IU/L (15-46); BLOOD UREA NITROGEN 58 mg/dl (7-20); CALCIUM 7.6 mg/dl (8.4-10.2); CARBON DIOXIDE 30 mmol/L (21-31); CHLORIDE 104 mmol/L (97-110); CREATININE 2.08 mg/dl (0.61-1.24); GLUCOSE 167 mg/dl (70-220); SODIUM 141 mmol/L (135-144); TOTAL PROTEIN 5.7 g/dl (6.1-8.1)
[2018-01-11 07:12] LABS: ANION GAP 12 (8-16); POTASSIUM 4.5 mmol/L (3.5-5.1)
[2018-01-11] MEDS: SOD CHLORIDE 0.9% 250 ML IV* (08:43)
[2018-01-11] MEDS: DEXTROSE 5%-0.45% NACL 1,000 ML IV (09:00)
[2018-01-11] MEDS ORDERED: ALBUMIN HUMAN 25% 100 ML IV (09:30)
[2018-01-11 11:05] LABS: ADD MAN DIFF? NO
[2018-01-11] MEDS: ONDANSETRON 4 MG INJ IV (11:16)
[2018-01-11 11:28] LABS: ABNORMAL IP MESSAGE 1; BASOPHILS % 0.2 % (0.0-2.0); EOSINOPHILS # 0.3 10^3/ul (0.0-0.5); EOSINOPHILS % 5.2 % (0.0-7.0); LYMPHOCYTES # 0.6 10^3/ul (0.8-2.9); LYMPHOCYTES % 12.5 % (15.0-51.0); MEAN CORPUSCULAR VOLUME 90.5 fl (82.0-101.0); MEAN PLATELET VOLUME 12.2 fl (7.4-10.4); MONOCYTE # 0.3 10^3/ul (0.3-0.9); NEUTROPHIL # 3.8 10^3/ul (1.6-7.5); NEUTROPHILS % 75.7 % (39.0-77.0); PLATELET COUNT 57 10^3/UL (140-415); POSITIVE DIFF @See below; RED BLOOD COUNT 2.21 10^6/ul (4.70-6.10); RED CELL DISTRIBUTION WIDTH 18.1 % (11.5-14.5)
[2018-01-11 11:32] LABS: HEPATITIS B SURFACE ANTIGEN NEGATIVE (NEGATIVE)
[2018-01-11 11:38] LABS: HEMOGLOBIN 6.4 g/dl (14.0-18.0)
[2018-01-11 16:05] LABS: ADD MAN DIFF? NO
[2018-01-11 16:06] LABS: ABNORMAL IP MESSAGE 1; BASOPHILS % 0.5 % (0.0-2.0); EOSINOPHILS # 0.3 10^3/ul (0.0-0.5); EOSINOPHILS % 3.4 % (0.0-7.0); HEMOGLOBIN 8.6 g/dl (14.0-18.0); LYMPHOCYTES # 0.7 10^3/ul (0.8-2.9); LYMPHOCYTES % 9.1 % (15.0-51.0); MEAN CORPUSCULAR HEMOGLOBIN 29.7 pg (29.0-33.0); MEAN CORPUSCULAR HGB CONC 33.1 g/dl (32.0-37.0); MEAN CORPUSCULAR VOLUME 89.7 fl (82.0-101.0); MEAN PLATELET VOLUME 12.4 fl (7.4-10.4); MONOCYTE # 0.5 10^3/ul (0.3-0.9); NEUTROPHIL # 6.2 10^3/ul (1.6-7.5); NEUTROPHILS % 79.5 % (39.0-77.0); PLATELET COUNT 62 10^3/UL (140-415); POSITIVE DIFF @See below; RED CELL DISTRIBUTION WIDTH 16.6 % (11.5-14.5)
[2018-01-11 16:06] LABS: WHITE BLOOD COUNT 7.8 10^3/ul (4.8-10.8)
[2018-01-11] MEDS: CIPROFLOXACIN 200 MG/D5W IVPB 100 ML IVPB (21:03)
[2018-01-12] MEDS: DEXTROSE 5%-0.45% NACL 1,000 ML IV (06:33)
[2018-01-12 06:48] LABS: ADD MAN DIFF? NO
[2018-01-12 06:50] LABS: WHITE BLOOD COUNT 5.9 10^3/ul (4.8-10.8)
[2018-01-12 06:50] LABS: ABNORMAL IP MESSAGE 1; BASOPHILS % 0.5 % (0.0-2.0); EOSINOPHILS # 0.3 10^3/ul (0.0-0.5); EOSINOPHILS % 5.6 % (0.0-7.0); HEMATOCRIT 24.8 % (42.0-52.0); HEMOGLOBIN 8.1 g/dl (14.0-18.0); LYMPHOCYTES # 0.7 10^3/ul (0.8-2.9); LYMPHOCYTES % 11.5 % (15.0-51.0); MEAN CORPUSCULAR HEMOGLOBIN 29.6 pg (29.0-33.0); MEAN CORPUSCULAR HGB CONC 32.7 g/dl (32.0-37.0); MEAN CORPUSCULAR VOLUME 90.5 fl (82.0-101.0); MEAN PLATELET VOLUME 10.4 fl (7.4-10.4); MONOCYTE # 0.4 10^3/ul (0.3-0.9); MONOCYTES % 6.9 % (0.0-11.0); NEUTROPHIL # 4.5 10^3/ul (1.6-7.5); NEUTROPHILS % 75.2 % (39.0-77.0); PLATELET COUNT 60 10^3/UL (140-415); POSITIVE DIFF @See below; RED BLOOD COUNT 2.74 10^6/ul (4.70-6.10); RED CELL DISTRIBUTION WIDTH 17.6 % (11.5-14.5)
[2018-01-12 07:13] LABS: ALANINE AMINOTRANSFERASE 28 IU/L (13-69); ALBUMIN 2.1 g/dl (3.3-4.9); ALBUMIN/GLOBULIN RATIO 0.63; ALKALINE PHOSPHATASE 94 IU/L (42-121); ANION GAP 8 (8-16); ASPARTATE AMINO TRANSFERASE 41 IU/L (15-46); BLOOD UREA NITROGEN 38 mg/dl (7-20); CALCIUM 7.6 mg/dl (8.4-10.2); CARBON DIOXIDE 33 mmol/L (21-31); CHLORIDE 101 mmol/L (97-110); CREATININE 1.94 mg/dl (0.61-1.24); GLUCOSE 158 mg/dl (70-220); MAGNESIUM 1.8 mg/dl (1.7-2.5); PHOSPHORUS 3.4 mg/dl (2.5-4.9); POTASSIUM 3.9 mmol/L (3.5-5.1); SODIUM 138 mmol/L (135-144); TOTAL PROTEIN 5.4 g/dl (6.1-8.1)
[2018-01-12] MEDS: PROPOFOL 20 ML (13:53)
[2018-01-12] MEDS: FENTAnyl 50 MCG/ML VIAL (13:53)
[2018-01-12] MEDS: EPHEDrine SULFATE 50 MG/5 ML SYG (13:54)
[2018-01-12] MEDS: ETOMIDATE 20 MG INJ (13:54)
[2018-01-12] MEDS: PHENYLephrine (100 MCG/ML) 5ML SYG (13:55)
[2018-01-12] MEDS: PANTOPRAZOLE (EC) 40 MG TAB PO (18:05)
[2018-01-12] MEDS: CIPROFLOXACIN 200 MG/D5W IVPB 100 ML IVPB (20:58)
[2018-01-13] MEDS: DEXTROSE 5%-0.45% NACL 1,000 ML IV (01:00)
[2018-01-13] MEDS: PANTOPRAZOLE (EC) 40 MG TAB PO ×2 (06:19→17:55)
[2018-01-13 08:32] LABS: ADD MAN DIFF? NO
[2018-01-13 08:37] LABS: WHITE BLOOD COUNT 5.6 10^3/ul (4.8-10.8)
[2018-01-13 08:37] LABS: ABNORMAL IP MESSAGE 1; BASOPHIL # 0.1 10^3/ul (0.0-0.1); BASOPHILS % 0.9 % (0.0-2.0); EOSINOPHILS # 0.3 10^3/ul (0.0-0.5); EOSINOPHILS % 5.2 % (0.0-7.0); HEMATOCRIT 27.7 % (42.0-52.0); HEMOGLOBIN 8.8 g/dl (14.0-18.0); LYMPHOCYTES # 0.8 10^3/ul (0.8-2.9); LYMPHOCYTES % 14.6 % (15.0-51.0); MEAN CORPUSCULAR HEMOGLOBIN 29.2 pg (29.0-33.0); MEAN CORPUSCULAR HGB CONC 31.8 g/dl (32.0-37.0); MEAN PLATELET VOLUME 12.1 fl (7.4-10.4); MONOCYTE # 0.4 10^3/ul (0.3-0.9); MONOCYTES % 7.3 % (0.0-11.0); NEUTROPHILS % 71.6 % (39.0-77.0); PLATELET COUNT 93 10^3/UL (140-415); POSITIVE DIFF @See below; RED BLOOD COUNT 3.01 10^6/ul (4.70-6.10); RED CELL DISTRIBUTION WIDTH 17.2 % (11.5-14.5)
[2018-01-13 08:55] LABS: ALANINE AMINOTRANSFERASE 29 IU/L (13-69); ALBUMIN 2.4 g/dl (3.3-4.9); ALBUMIN/GLOBULIN RATIO 0.66; ALKALINE PHOSPHATASE 118 IU/L (42-121); ANION GAP 9 (8-16); ASPARTATE AMINO TRANSFERASE 46 IU/L (15-46); BILIRUBIN,INDIRECT 0.6 mg/dl (0-1.1); BILIRUBIN,TOTAL 0.6 mg/dl (0.2-1.3); BLOOD UREA NITROGEN 48 mg/dl (7-20); CARBON DIOXIDE 32 mmol/L (21-31); CHLORIDE 103 mmol/L (97-110); CREATININE 2.68 mg/dl (0.61-1.24); GLUCOSE 171 mg/dl (70-220); POTASSIUM 4.7 mmol/L (3.5-5.1); SODIUM 139 mmol/L (135-144)
[2018-01-13] MEDS ORDERED: DEXTROSE 50% 50 ML SYRINGE IV ×2 (19:00)
[2018-01-13] MEDS ORDERED: GLUCAGON 1 MG INJ IM (19:00)
[2018-01-13] MEDS ORDERED: GLUCOSE GEL 15 GRAM TUBE BUCCAL (19:00)
[2018-01-13] MEDS ORDERED: CEFAZOLIN 1 GM INJ IVPB (19:00)
[2018-01-13] MEDS ORDERED: GLUCOSE GEL 15 GRAM TUBE PO ×2 (19:00)
[2018-01-13] MEDS: LACTULOSE 30ML CUP PO (21:59)
[2018-01-13] MEDS: PROPRANOLOL 10 MG TAB PO (21:59)
[2018-01-13] MEDS: ESCITALOPRAM 10 MG TAB PO (21:59)
[2018-01-13] MEDS: CEFAZOLIN 1 GM/50 ML (PMX) 50 ML IVPB (22:00)
[2018-01-13] MEDS: INSULIN GLARGINE [LANtus] 3 ML PEN SC (22:16)
[2018-01-13] MEDS: CIPROFLOXACIN 200 MG/D5W IVPB 100 ML IVPB (22:17)
[2018-01-13] MEDS: INSULIN ASPART [NOVOLOG] 3 ML PEN SC (22:32)
[2018-01-14] MEDS: PANTOPRAZOLE (EC) 40 MG TAB PO ×2 (06:36→17:15)
[2018-01-14 06:52] LABS: ADD MAN DIFF? NO
[2018-01-14 06:57] LABS: ABNORMAL IP MESSAGE 1; BASOPHILS % 0.5 % (0.0-2.0); EOSINOPHILS # 0.2 10^3/ul (0.0-0.5); EOSINOPHILS % 6.4 % (0.0-7.0); HEMATOCRIT 25.6 % (42.0-52.0); HEMOGLOBIN 8.1 g/dl (14.0-18.0); LYMPHOCYTES # 0.6 10^3/ul (0.8-2.9); LYMPHOCYTES % 15.2 % (15.0-51.0); MEAN CORPUSCULAR HEMOGLOBIN 29.2 pg (29.0-33.0); MEAN CORPUSCULAR HGB CONC 31.6 g/dl (32.0-37.0); MEAN CORPUSCULAR VOLUME 92.4 fl (82.0-101.0); MEAN PLATELET VOLUME 12.3 fl (7.4-10.4); MONOCYTE # 0.4 10^3/ul (0.3-0.9); MONOCYTES % 9.6 % (0.0-11.0); NEUTROPHIL # 2.5 10^3/ul (1.6-7.5); NEUTROPHILS % 67.8 % (39.0-77.0); PLATELET COUNT 80 10^3/UL (140-415); POSITIVE DIFF @See below; RED BLOOD COUNT 2.77 10^6/ul (4.70-6.10)
[2018-01-14 06:57] LABS: WHITE BLOOD COUNT 3.7 10^3/ul (4.8-10.8)
[2018-01-14 07:32] LABS: ALANINE AMINOTRANSFERASE 22 IU/L (13-69); ALBUMIN 2.2 g/dl (3.3-4.9); ALBUMIN/GLOBULIN RATIO 0.62; ALKALINE PHOSPHATASE 141 IU/L (42-121); ANION GAP 8 (8-16); ASPARTATE AMINO TRANSFERASE 45 IU/L (15-46); BILIRUBIN,INDIRECT 0.5 mg/dl (0-1.1); BILIRUBIN,TOTAL 0.5 mg/dl (0.2-1.3); BLOOD UREA NITROGEN 51 mg/dl (7-20); CALCIUM 7.7 mg/dl (8.4-10.2); CARBON DIOXIDE 30 mmol/L (21-31); CHLORIDE 105 mmol/L (97-110); CREATININE 2.67 mg/dl (0.61-1.24); GLUCOSE 204 mg/dl (70-220); POTASSIUM 4.2 mmol/L (3.5-5.1); SODIUM 139 mmol/L (135-144); TOTAL PROTEIN 5.7 g/dl (6.1-8.1)
[2018-01-14] MEDS: PROPRANOLOL 10 MG TAB PO ×3 (08:42→21:19)
[2018-01-14] MEDS: INSULIN ASPART [NOVOLOG] 3 ML PEN SC ×4 (08:44→21:22)
[2018-01-14] MEDS: INSULIN GLARGINE [LANtus] 3 ML PEN SC (21:18)
[2018-01-14] MEDS: ESCITALOPRAM 10 MG TAB PO (21:19)
[2018-01-14] MEDS: CIPROFLOXACIN 200 MG/D5W IVPB 100 ML IVPB (21:19)
[2018-01-14] MEDS: LACTULOSE 30ML CUP PO (21:19)
[2018-01-15] MEDS: PANTOPRAZOLE (EC) 40 MG TAB PO ×2 (05:13→16:58)
[2018-01-15] MEDS: PROPRANOLOL 10 MG TAB PO ×3 (08:11→21:35)
[2018-01-15] MEDS: INSULIN ASPART [NOVOLOG] 3 ML PEN SC ×4 (08:18→22:26)
[2018-01-15 13:13] LABS: ADD MAN DIFF? NO
[2018-01-15 13:16] LABS: WHITE BLOOD COUNT 5.7 10^3/ul (4.8-10.8)
[2018-01-15 13:16] LABS: ABNORMAL IP MESSAGE 1; BASOPHILS % 0.7 % (0.0-2.0); EOSINOPHILS # 0.4 10^3/ul (0.0-0.5); EOSINOPHILS % 6.5 % (0.0-7.0); HEMATOCRIT 26.6 % (42.0-52.0); HEMOGLOBIN 8.3 g/dl (14.0-18.0); LYMPHOCYTES # 0.8 10^3/ul (0.8-2.9); LYMPHOCYTES % 13.4 % (15.0-51.0); MEAN CORPUSCULAR HEMOGLOBIN 29.2 pg (29.0-33.0); MEAN CORPUSCULAR HGB CONC 31.2 g/dl (32.0-37.0); MEAN CORPUSCULAR VOLUME 93.7 fl (82.0-101.0); MONOCYTE # 0.4 10^3/ul (0.3-0.9); MONOCYTES % 7.7 % (0.0-11.0); NEUTROPHIL # 4.1 10^3/ul (1.6-7.5); NEUTROPHILS % 71.4 % (39.0-77.0); PLATELET COUNT 91 10^3/UL (140-415); POSITIVE DIFF @See below; RED BLOOD COUNT 2.84 10^6/ul (4.70-6.10); RED CELL DISTRIBUTION WIDTH 17.4 % (11.5-14.5)
[2018-01-15 13:34] LABS: ALANINE AMINOTRANSFERASE 33 IU/L (13-69); ALBUMIN 2.4 g/dl (3.3-4.9); ALBUMIN/GLOBULIN RATIO 0.66; ALKALINE PHOSPHATASE 184 IU/L (42-121); ANION GAP 8 (8-16); ASPARTATE AMINO TRANSFERASE 59 IU/L (15-46); BILIRUBIN,INDIRECT 0.6 mg/dl (0-1.1); BILIRUBIN,TOTAL 0.6 mg/dl (0.2-1.3); BLOOD UREA NITROGEN 54 mg/dl (7-20); CALCIUM 7.9 mg/dl (8.4-10.2); CARBON DIOXIDE 30 mmol/L (21-31); CHLORIDE 106 mmol/L (97-110); CREATININE 2.66 mg/dl (0.61-1.24); GLUCOSE 197 mg/dl (70-220); POTASSIUM 4.8 mmol/L (3.5-5.1); SODIUM 139 mmol/L (135-144)
[2018-01-15] MEDS: LACTULOSE 30ML CUP PO (21:35)
[2018-01-15] MEDS: ESCITALOPRAM 10 MG TAB PO (21:35)
[2018-01-15] MEDS: CIPROFLOXACIN 200 MG/D5W IVPB 100 ML IVPB (21:35)
[2018-01-15] MEDS: INSULIN GLARGINE [LANtus] 3 ML PEN SC (22:26)
[2018-01-15] MEDS ORDERED: EPOETIN 10000 UNITS/1 ML INJ (ESRD) SC (23:00)
[2018-01-15] MEDS ORDERED: EPOETIN ALFA 1,000 UNITS/0.1 ML VIAL SC (23:02)
[2018-01-15] MEDS: ZOLPIDEM 5 MG TAB PO (23:12)
[2018-01-16] MEDS: EPOETIN ALFA 1,000 UNITS/0.1 ML VIAL SC (00:25)
[2018-01-16] MEDS: PANTOPRAZOLE (EC) 40 MG TAB PO ×2 (05:56→17:31)
[2018-01-16 07:47] LABS: ADD MAN DIFF? NO
[2018-01-16 07:56] LABS: BASOPHILS % 0.6 % (0.0-2.0); EOSINOPHILS # 0.5 10^3/ul (0.0-0.5); EOSINOPHILS % 6.8 % (0.0-7.0); HEMATOCRIT 27.1 % (42.0-52.0); HEMOGLOBIN 8.7 g/dl (14.0-18.0); LYMPHOCYTES # 0.9 10^3/ul (0.8-2.9); LYMPHOCYTES % 12.7 % (15.0-51.0); MEAN CORPUSCULAR HEMOGLOBIN 29.6 pg (29.0-33.0); MEAN CORPUSCULAR HGB CONC 32.1 g/dl (32.0-37.0); MEAN CORPUSCULAR VOLUME 92.2 fl (82.0-101.0); MEAN PLATELET VOLUME 11.9 fl (7.4-10.4); MONOCYTE # 0.5 10^3/ul (0.3-0.9); NEUTROPHILS % 72.6 % (39.0-77.0); PLATELET COUNT 110 10^3/UL (140-415); RED BLOOD COUNT 2.94 10^6/ul (4.70-6.10); RED CELL DISTRIBUTION WIDTH 16.9 % (11.5-14.5)
[2018-01-16 07:56] LABS: WHITE BLOOD COUNT 6.9 10^3/ul (4.8-10.8)
[2018-01-16] MEDS: PROPRANOLOL 10 MG TAB PO ×3 (08:04→21:00)
[2018-01-16] MEDS: INSULIN ASPART [NOVOLOG] 3 ML PEN SC ×4 (08:08→21:51)
[2018-01-16 08:31] LABS: ANION GAP 12 (8-16); BLOOD UREA NITROGEN 54 mg/dl (7-20); CALCIUM 7.7 mg/dl (8.4-10.2); CARBON DIOXIDE 23 mmol/L (21-31); CHLORIDE 107 mmol/L (97-110); CREATININE 2.67 mg/dl (0.61-1.24); GLUCOSE 161 mg/dl (70-220); POTASSIUM 4.3 mmol/L (3.5-5.1); SODIUM 138 mmol/L (135-144)
[2018-01-16] MEDS: FUROSEMIDE 40 MG TAB PO (09:02)
[2018-01-16] MEDS: ESCITALOPRAM 10 MG TAB PO (21:51)
[2018-01-16] MEDS: LACTULOSE 30ML CUP PO (21:51)
[2018-01-16] MEDS: INSULIN GLARGINE [LANtus] 3 ML PEN SC (22:21)
[2018-01-17 02:48] LABS: ADD UMIC YES; UR ASCORBIC ACID NEGATIVE (NEGATIVE); UR BILIRUBIN (Dip) NEGATIVE (NEGATIVE); UR BLOOD (Dip) 1+ mg/dL (NEGATIVE); UR CLARITY CLEAR (CLEAR); UR COLOR YELLOW (YELLOW); UR GLUCOSE (Dip) NEGATIVE (NEGATIVE); UR KETONES (Dip) NEGATIVE (NEGATIVE); UR LEUKOCYTE ESTERASE (Dip) NEGATIVE Leu/ul (NEGATIVE); UR NITRITE (Dip) NEGATIVE (NEGATIVE); UR RBC 2 /HPF (0-5); UR SPECIFIC GRAVITY (Dip) 1.012 (1.003-1.030); UR TOTAL PROTEIN (Dip) 2+ mg/dl (NEGATIVE); UR UROBILINOGEN (Dip) NEGATIVE (NEGATIVE); UR WBC 2 /HPF (0-5)
[2018-01-17 02:56] LABS: CREATININE,URINE RANDOM 99.32 mg/dl (20-370)
[2018-01-17] MEDS: PANTOPRAZOLE (EC) 40 MG TAB PO (05:48)
[2018-01-17 05:49] LABS: ADD MAN DIFF? NO
[2018-01-17 05:52] LABS: WHITE BLOOD COUNT 5.1 10^3/ul (4.8-10.8)
[2018-01-17 05:52] LABS: ABNORMAL IP MESSAGE 1; BASOPHILS % 0.4 % (0.0-2.0); EOSINOPHILS # 0.4 10^3/ul (0.0-0.5); EOSINOPHILS % 6.9 % (0.0-7.0); HEMATOCRIT 25.6 % (42.0-52.0); HEMOGLOBIN 8.1 g/dl (14.0-18.0); LYMPHOCYTES # 0.6 10^3/ul (0.8-2.9); LYMPHOCYTES % 11.8 % (15.0-51.0); MEAN CORPUSCULAR HEMOGLOBIN 29.2 pg (29.0-33.0); MEAN CORPUSCULAR HGB CONC 31.6 g/dl (32.0-37.0); MEAN CORPUSCULAR VOLUME 92.4 fl (82.0-101.0); MEAN PLATELET VOLUME 12.2 fl (7.4-10.4); MONOCYTE # 0.4 10^3/ul (0.3-0.9); MONOCYTES % 7.1 % (0.0-11.0); NEUTROPHIL # 3.8 10^3/ul (1.6-7.5); NEUTROPHILS % 73.6 % (39.0-77.0); POSITIVE DIFF @See below; RED BLOOD COUNT 2.77 10^6/ul (4.70-6.10); RED CELL DISTRIBUTION WIDTH 16.7 % (11.5-14.5)
[2018-01-17 06:20] LABS: PLATELET COUNT 82 10^3/UL (140-415)
[2018-01-17 06:25] LABS: ALANINE AMINOTRANSFERASE 36 IU/L (13-69); ALBUMIN 2.4 g/dl (3.3-4.9); ALBUMIN/GLOBULIN RATIO 0.63; ALKALINE PHOSPHATASE 187 IU/L (42-121); ANION GAP 11 (8-16); ASPARTATE AMINO TRANSFERASE 61 IU/L (15-46); BILIRUBIN,INDIRECT 0.5 mg/dl (0-1.1); BILIRUBIN,TOTAL 0.5 mg/dl (0.2-1.3); BLOOD UREA NITROGEN 54 mg/dl (7-20); CALCIUM 7.6 mg/dl (8.4-10.2); CARBON DIOXIDE 24 mmol/L (21-31); CHLORIDE 104 mmol/L (97-110); CREATININE 2.67 mg/dl (0.61-1.24); GLUCOSE 182 mg/dl (70-220); POTASSIUM 4.3 mmol/L (3.5-5.1); SODIUM 135 mmol/L (135-144); TOTAL PROTEIN 6.2 g/dl (6.1-8.1)
[2018-01-17] MEDS: INSULIN ASPART [NOVOLOG] 3 ML PEN SC (08:33)
[2018-01-17] MEDS: FUROSEMIDE 40 MG TAB PO (08:37)
[2018-01-17] MEDS: PROPRANOLOL 10 MG TAB PO ×2 (08:37→12:43)
[2018-01-17] MEDS ORDERED: GLUCAGON 1 MG INJ IM (14:00)
[2018-01-17] MEDS ORDERED: GLUCOSE GEL 15 GRAM TUBE BUCCAL (14:00)
[2018-01-17] MEDS ORDERED: DEXTROSE 50% 50 ML SYRINGE IV ×2 (14:00)
[2018-01-17] MEDS ORDERED: GLUCOSE GEL 15 GRAM TUBE PO ×2 (14:00)
[2018-01-17] MEDS: EPOETIN 10000 UNITS/1 ML INJ (ESRD) SC (14:23)
[2018-01-17] MEDS ORDERED: EPOETIN 10000 UNITS/1 ML INJ (ESRD) SC (17:00)
== END 2018-01-17 15:00 | disposition home or self-care (01) | DRG 380 ==
LOC: TEL 01-12 22:59 → E/R 12:59 → PP2 01-16 23:21 → ICU 17:47
PROC: 0DJ08ZZ Inspection of Upper Intestinal Tract, Via Natural or Artificial Opening Endoscopic (ICD-10-PCS; principal; 2018-01-12 14:00)
PROC: 30233N1 Transfusion of Nonautologous Red Blood Cells into Peripheral Vein, Percutaneous Approach (ICD-10-PCS; 2018-01-12 14:00)
PROC: 5A1D70Z Performance of Urinary Filtration, Intermittent, Less than 6 Hours Per Day (ICD-10-PCS; 2018-01-12 14:00)
DX: K22.11 Ulcer of esophagus with bleeding (principal); N18.6 End stage renal disease; R18.8 Other ascites; D62 Acute posthemorrhagic anemia; K76.6 Portal hypertension; I13.2 Hypertensive heart and chronic kidney disease with heart failure and with stage 5 chronic kidney disease, or end stage renal disease; L03.114 Cellulitis of left upper limb; E11.22 Type 2 diabetes mellitus with diabetic chronic kidney disease; Z99.2 Dependence on renal dialysis; K74.69 Other cirrhosis of liver; E66.9 Obesity, unspecified; Z68.36 Body mass index [BMI] 36.0-36.9, adult; D69.6 Thrombocytopenia, unspecified; B19.20 Unspecified viral hepatitis C without hepatic coma; I50.9 Heart failure, unspecified; G47.33 Obstructive sleep apnea (adult) (pediatric); K31.89 Other diseases of stomach and duodenum
CPT/HCPCS: 36415; 36430; 71045; 71046; 76775; 80048; 80053; 81001; 81003; 82570; 82962; 83735; 84100; 84484; 85014; 85018; 85025; 85610; 85730; 86644; 86850; 86900; 86901; 86920; 87340; 90935; 93005; 96374; 96375; 96376; 99291-25

== ENCOUNTER → 2018-01-25 | Outpatient (CLI) | payer BC | END | disposition home or self-care (01) | LOC: RAD 09:13 | DX: R06.02 Shortness of breath (principal); I51.7 Cardiomegaly | CPT/HCPCS: 71046 ==

== ENCOUNTER 2018-01-29 09:30 | Inpatient (IN) | payer BC, MEDICARE ==
[2018-01-29] MEDS: PANTOPRAZOLE 40 MG INJ IV (10:24)
[2018-01-29 10:30] LABS: ADD MAN DIFF? NO
[2018-01-29 10:32] LABS: BASOPHIL # 0.1 10^3/ul (0.0-0.1); EOSINOPHILS # 0.4 10^3/ul (0.0-0.5); EOSINOPHILS % 6.9 % (0.0-7.0); HEMATOCRIT 25.1 % (42.0-52.0); HEMOGLOBIN 7.4 g/dl (14.0-18.0); LYMPHOCYTES # 0.7 10^3/ul (0.8-2.9); LYMPHOCYTES % 13.8 % (15.0-51.0); MEAN CORPUSCULAR HEMOGLOBIN 28.2 pg (29.0-33.0); MEAN CORPUSCULAR HGB CONC 29.5 g/dl (32.0-37.0); MEAN CORPUSCULAR VOLUME 95.8 fl (82.0-101.0); MEAN PLATELET VOLUME 11.5 fl (7.4-10.4); MONOCYTE # 0.5 10^3/ul (0.3-0.9); MONOCYTES % 9.3 % (0.0-11.0); NEUTROPHIL # 3.5 10^3/ul (1.6-7.5); NEUTROPHILS % 68.6 % (39.0-77.0); PLATELET COUNT 106 10^3/UL (140-415); RED BLOOD COUNT 2.62 10^6/ul (4.70-6.10); RED CELL DISTRIBUTION WIDTH 17.2 % (11.5-14.5)
[2018-01-29 10:32] LABS: WHITE BLOOD COUNT 5.1 10^3/ul (4.8-10.8)
[2018-01-29 10:50] LABS: ALANINE AMINOTRANSFERASE 25 IU/L (13-69); ALBUMIN 2.9 g/dl (3.3-4.9); ALBUMIN/GLOBULIN RATIO 0.64; ALKALINE PHOSPHATASE 217 IU/L (42-121); ANION GAP 13 (8-16); ASPARTATE AMINO TRANSFERASE 39 IU/L (15-46); BILIRUBIN,INDIRECT 0.7 mg/dl (0-1.1); BILIRUBIN,TOTAL 0.7 mg/dl (0.2-1.3); BLOOD UREA NITROGEN 75 mg/dl (7-20); CALCIUM 7.8 mg/dl (8.4-10.2); CARBON DIOXIDE 23 mmol/L (21-31); CHLORIDE 112 mmol/L (97-110); CREATININE 3.22 mg/dl (0.61-1.24); GLUCOSE 133 mg/dl (70-220); LIPASE 202 U/L (23-300); POTASSIUM 4.9 mmol/L (3.5-5.1); SODIUM 143 mmol/L (135-144); TOTAL PROTEIN 7.4 g/dl (6.1-8.1)
[2018-01-29 11:00] LABS: INR 1.24; PROTIME 15.8 Sec (11.9-14.9); PT RATIO 1.2
[2018-01-29 11:01] LABS: TROPONIN-I 0.023 ng/ml (0.00-0.12)
[2018-01-29] MEDS: OXYCODONE/ACETAMINOPHEN (5/325) TAB PO (12:16)
[2018-01-29] MEDS ORDERED: ONDANSETRON 4 MG INJ IV (14:00)
[2018-01-29 15:31] LABS: IMMEDIATE SPIN CROSSMATCH 1 2
[2018-01-29] MEDS: INSULIN ASPART [NOVOLOG] 3 ML PEN SC ×2 (17:55→21:00)
[2018-01-29] MEDS ORDERED: DEXTROSE 50% 50 ML SYRINGE IV ×2 (18:00)
[2018-01-29] MEDS ORDERED: GLUCOSE GEL 15 GRAM TUBE BUCCAL (18:00)
[2018-01-29] MEDS ORDERED: GLUCAGON 1 MG INJ IM (18:00)
[2018-01-29] MEDS ORDERED: GLUCOSE GEL 15 GRAM TUBE PO ×2 (18:00)
[2018-01-29] MEDS ORDERED: ESCITALOPRAM 10 MG TAB PO (19:00)
[2018-01-29] MEDS ORDERED: FUROSEMIDE 40 MG TAB PO (19:00)
[2018-01-29] MEDS: SOD CHLORIDE 0.45% 1,000 ML IV (20:40)
[2018-01-29] MEDS: PROPRANOLOL 10 MG TAB PO (20:58)
[2018-01-29] MEDS: INSULIN GLARGINE [LANtus] 3 ML PEN SC (21:01)
[2018-01-29 23:40] LABS: OCCULT BLOOD STOOL POSITIVE (NEGATIVE)
[2018-01-30] MEDS: morphine 4 MG/ML VIAL IV (02:04)
[2018-01-30] MEDS: PANTOPRAZOLE (EC) 40 MG TAB PO ×2 (05:54→17:29)
[2018-01-30] MEDS: FUROSEMIDE 40 MG TAB PO ×2 (05:54→17:29)
[2018-01-30 07:06] LABS: ADD MAN DIFF? NO
[2018-01-30 07:14] LABS: WHITE BLOOD COUNT 4.6 10^3/ul (4.8-10.8)
[2018-01-30 07:14] LABS: ABNORMAL IP MESSAGE 1; BASOPHIL # 0.1 10^3/ul (0.0-0.1); BASOPHILS % 1.1 % (0.0-2.0); EOSINOPHILS # 0.3 10^3/ul (0.0-0.5); EOSINOPHILS % 5.9 % (0.0-7.0); HEMOGLOBIN 8.8 g/dl (14.0-18.0); LYMPHOCYTES # 0.7 10^3/ul (0.8-2.9); LYMPHOCYTES % 14.3 % (15.0-51.0); MEAN CORPUSCULAR HEMOGLOBIN 28.6 pg (29.0-33.0); MEAN CORPUSCULAR HGB CONC 30.3 g/dl (32.0-37.0); MEAN CORPUSCULAR VOLUME 94.2 fl (82.0-101.0); MEAN PLATELET VOLUME 11.1 fl (7.4-10.4); MONOCYTE # 0.4 10^3/ul (0.3-0.9); MONOCYTES % 9.1 % (0.0-11.0); NEUTROPHIL # 3.2 10^3/ul (1.6-7.5); NEUTROPHILS % 69.4 % (39.0-77.0); PLATELET COUNT 90 10^3/UL (140-415); POSITIVE DIFF @See below; RED BLOOD COUNT 3.08 10^6/ul (4.70-6.10); RED CELL DISTRIBUTION WIDTH 16.9 % (11.5-14.5)
[2018-01-30 07:33] LABS: ANION GAP 14 (8-16); BLOOD UREA NITROGEN 76 mg/dl (7-20); CALCIUM 7.6 mg/dl (8.4-10.2); CARBON DIOXIDE 20 mmol/L (21-31); CHLORIDE 112 mmol/L (97-110); CREATININE 3.25 mg/dl (0.61-1.24); GLUCOSE 128 mg/dl (70-220); POTASSIUM 4.8 mmol/L (3.5-5.1); SODIUM 141 mmol/L (135-144)
[2018-01-30] MEDS: INSULIN ASPART [NOVOLOG] 3 ML PEN SC ×4 (07:50→21:00)
[2018-01-30] MEDS: PROPRANOLOL 10 MG TAB PO ×2 (08:48→20:43)
[2018-01-30] MEDS ORDERED: ESCITALOPRAM 10 MG TAB PO (09:00)
[2018-01-30] MEDS ORDERED: FUROSEMIDE 40 MG TAB PO (09:00)
[2018-01-30 11:23] LABS: AMMONIA 43 umol/l (9-30)
[2018-01-30] MEDS ORDERED: LACTULOSE 30ML CUP PO (14:30)
[2018-01-30] MEDS: ESCITALOPRAM 10 MG TAB PO (20:42)
[2018-01-30] MEDS: INSULIN GLARGINE [LANtus] 3 ML PEN SC (20:46)
[2018-01-31 05:37] LABS: ADD MAN DIFF? NO
[2018-01-31 05:39] LABS: WHITE BLOOD COUNT 3.9 10^3/ul (4.8-10.8)
[2018-01-31 05:39] LABS: ABNORMAL IP MESSAGE 1; BASOPHILS % 0.8 % (0.0-2.0); EOSINOPHILS # 0.3 10^3/ul (0.0-0.5); EOSINOPHILS % 6.4 % (0.0-7.0); HEMATOCRIT 27.2 % (42.0-52.0); HEMOGLOBIN 8.2 g/dl (14.0-18.0); LYMPHOCYTES # 0.5 10^3/ul (0.8-2.9); LYMPHOCYTES % 13.7 % (15.0-51.0); MEAN CORPUSCULAR HEMOGLOBIN 28.4 pg (29.0-33.0); MEAN CORPUSCULAR HGB CONC 30.1 g/dl (32.0-37.0); MEAN CORPUSCULAR VOLUME 94.1 fl (82.0-101.0); MEAN PLATELET VOLUME 13.1 fl (7.4-10.4); MONOCYTE # 0.5 10^3/ul (0.3-0.9); MONOCYTES % 11.7 % (0.0-11.0); NEUTROPHIL # 2.6 10^3/ul (1.6-7.5); NEUTROPHILS % 67.1 % (39.0-77.0); NUCLEATED RED BLOOD CELLS% 0.5 /100WBC (0.0-0.0); PLATELET COUNT 77 10^3/UL (140-415); POSITIVE DIFF @See below; RED BLOOD COUNT 2.89 10^6/ul (4.70-6.10); RED CELL DISTRIBUTION WIDTH 16.9 % (11.5-14.5)
[2018-01-31 06:09] LABS: ALANINE AMINOTRANSFERASE 32 IU/L (13-69); ALBUMIN 2.5 g/dl (3.3-4.9); ALBUMIN/GLOBULIN RATIO 0.62; ALKALINE PHOSPHATASE 190 IU/L (42-121); ANION GAP 12 (8-16); ASPARTATE AMINO TRANSFERASE 37 IU/L (15-46); BILIRUBIN,INDIRECT 0.4 mg/dl (0-1.1); BILIRUBIN,TOTAL 0.4 mg/dl (0.2-1.3); BLOOD UREA NITROGEN 84 mg/dl (7-20); CALCIUM 7.5 mg/dl (8.4-10.2); CARBON DIOXIDE 20 mmol/L (21-31); CHLORIDE 114 mmol/L (97-110); CREATININE 3.43 mg/dl (0.61-1.24); GLUCOSE 194 mg/dl (70-220); POTASSIUM 4.9 mmol/L (3.5-5.1); SODIUM 141 mmol/L (135-144); TOTAL PROTEIN 6.5 g/dl (6.1-8.1)
[2018-01-31] MEDS: PANTOPRAZOLE (EC) 40 MG TAB PO ×2 (06:18→18:18)
[2018-01-31] MEDS: FUROSEMIDE 40 MG TAB PO ×2 (06:18→18:18)
[2018-01-31] MEDS: PROPRANOLOL 10 MG TAB PO ×2 (08:04→21:00)
[2018-01-31] MEDS: INSULIN ASPART [NOVOLOG] 3 ML PEN SC ×4 (08:07→20:14)
[2018-01-31] MEDS: INSULIN GLARGINE [LANtus] 3 ML PEN SC (20:13)
[2018-01-31] MEDS: ESCITALOPRAM 10 MG TAB PO (20:14)
[2018-01-31] MEDS: ZOLPIDEM 5 MG TAB PO (23:06)
[2018-02-01] MEDS: traZODone 50 MG TAB PO (02:12)
[2018-02-01] MEDS: PANTOPRAZOLE (EC) 40 MG TAB PO ×2 (05:53→17:50)
[2018-02-01 05:55] LABS: ADD MAN DIFF? NO
[2018-02-01] MEDS: FUROSEMIDE 40 MG TAB PO ×2 (05:56→17:50)
[2018-02-01 06:02] LABS: ABNORMAL IP MESSAGE 1; BASOPHILS % 0.6 % (0.0-2.0); EOSINOPHILS # 0.3 10^3/ul (0.0-0.5); EOSINOPHILS % 7.2 % (0.0-7.0); HEMATOCRIT 25.1 % (42.0-52.0); HEMOGLOBIN 7.5 g/dl (14.0-18.0); LYMPHOCYTES # 0.5 10^3/ul (0.8-2.9); MEAN CORPUSCULAR HGB CONC 29.9 g/dl (32.0-37.0); MEAN CORPUSCULAR VOLUME 93.7 fl (82.0-101.0); MEAN PLATELET VOLUME 12.7 fl (7.4-10.4); MONOCYTE # 0.3 10^3/ul (0.3-0.9); MONOCYTES % 8.9 % (0.0-11.0); NEUTROPHIL # 2.5 10^3/ul (1.6-7.5); PLATELET COUNT 73 10^3/UL (140-415); POSITIVE DIFF @See below; RED BLOOD COUNT 2.68 10^6/ul (4.70-6.10); RED CELL DISTRIBUTION WIDTH 16.7 % (11.5-14.5)
[2018-02-01 06:02] LABS: WHITE BLOOD COUNT 3.6 10^3/ul (4.8-10.8)
[2018-02-01 06:29] LABS: ALANINE AMINOTRANSFERASE 25 IU/L (13-69); ALBUMIN 2.6 g/dl (3.3-4.9); ALBUMIN/GLOBULIN RATIO 0.63; ALKALINE PHOSPHATASE 205 IU/L (42-121); ANION GAP 14 (8-16); ASPARTATE AMINO TRANSFERASE 34 IU/L (15-46); BILIRUBIN,INDIRECT 0.5 mg/dl (0-1.1); BILIRUBIN,TOTAL 0.5 mg/dl (0.2-1.3); BLOOD UREA NITROGEN 82 mg/dl (7-20); CALCIUM 7.3 mg/dl (8.4-10.2); CARBON DIOXIDE 21 mmol/L (21-31); CHLORIDE 111 mmol/L (97-110); CREATININE 3.25 mg/dl (0.61-1.24); GLUCOSE 180 mg/dl (70-220); POTASSIUM 4.8 mmol/L (3.5-5.1); SODIUM 141 mmol/L (135-144); TOTAL PROTEIN 6.7 g/dl (6.1-8.1)
[2018-02-01] MEDS: INSULIN ASPART [NOVOLOG] 3 ML PEN SC ×4 (08:33→20:51)
[2018-02-01] MEDS: PROPRANOLOL 10 MG TAB PO ×2 (08:34→20:45)
[2018-02-01] MEDS ORDERED: NITROGLYCERIN (SL) 0.4 MG TAB (15:13)
[2018-02-01] MEDS: NITROGLYCERIN (SL) 0.4 MG TAB SL (15:14)
[2018-02-01] MEDS: ASPIRIN 81 MG TAB PO (15:14)
[2018-02-01] MEDS ORDERED: NITROGLYCERIN 0.2 MG/HR PATCH TRANSDERM (16:00)
[2018-02-01 16:19] LABS: TROPONIN-I 0.019 ng/ml (0.000-0.120)
[2018-02-01] MEDS: ESCITALOPRAM 10 MG TAB PO (20:46)
[2018-02-01] MEDS: LACTULOSE 30ML CUP PO (20:46)
[2018-02-01] MEDS: INSULIN GLARGINE [LANtus] 3 ML PEN SC (20:52)
[2018-02-01] MEDS ORDERED: PANTOPRAZOLE (EC) 40 MG TAB PO (21:00)
[2018-02-01] MEDS ORDERED: FUROSEMIDE 40 MG TAB PO (21:00)
[2018-02-01] MEDS ORDERED: ESCITALOPRAM 10 MG TAB PO (21:00)
[2018-02-02] MEDS: PROPRANOLOL 10 MG TAB PO ×4 (00:31→22:03)
[2018-02-02] MEDS: FUROSEMIDE 40 MG TAB PO ×4 (07:06→18:00)
[2018-02-02] MEDS: PANTOPRAZOLE (EC) 40 MG TAB PO ×2 (07:06→17:25)
[2018-02-02 07:55] LABS: ADD MAN DIFF? NO
[2018-02-02 08:06] LABS: WHITE BLOOD COUNT 3.1 10^3/ul (4.8-10.8)
[2018-02-02 08:06] LABS: ABNORMAL IP MESSAGE 1; EOSINOPHILS # 0.2 10^3/ul (0.0-0.5); EOSINOPHILS % 6.2 % (0.0-7.0); HEMATOCRIT 24.1 % (42.0-52.0); HEMOGLOBIN 7.2 g/dl (14.0-18.0); LYMPHOCYTES # 0.5 10^3/ul (0.8-2.9); LYMPHOCYTES % 16.3 % (15.0-51.0); MEAN CORPUSCULAR HEMOGLOBIN 28.3 pg (29.0-33.0); MEAN CORPUSCULAR HGB CONC 29.9 g/dl (32.0-37.0); MEAN CORPUSCULAR VOLUME 94.9 fl (82.0-101.0); MEAN PLATELET VOLUME 12.6 fl (7.4-10.4); MONOCYTE # 0.3 10^3/ul (0.3-0.9); MONOCYTES % 9.8 % (0.0-11.0); NEUTROPHILS % 66.4 % (39.0-77.0); PLATELET COUNT 54 10^3/UL (140-415); POSITIVE DIFF @See below; RED BLOOD COUNT 2.54 10^6/ul (4.70-6.10); RED CELL DISTRIBUTION WIDTH 16.8 % (11.5-14.5)
[2018-02-02] MEDS: INSULIN ASPART [NOVOLOG] 3 ML PEN SC ×4 (08:25→22:10)
[2018-02-02 08:34] LABS: ALANINE AMINOTRANSFERASE 28 IU/L (13-69); ALBUMIN 2.4 g/dl (3.3-4.9); ALBUMIN/GLOBULIN RATIO 0.61; ALKALINE PHOSPHATASE 179 IU/L (42-121); ANION GAP 12 (8-16); ASPARTATE AMINO TRANSFERASE 34 IU/L (15-46); BILIRUBIN,INDIRECT 0.6 mg/dl (0-1.1); BILIRUBIN,TOTAL 0.6 mg/dl (0.2-1.3); BLOOD UREA NITROGEN 75 mg/dl (7-20); CALCIUM 7.5 mg/dl (8.4-10.2); CARBON DIOXIDE 24 mmol/L (21-31); CHLORIDE 112 mmol/L (97-110); CREATININE 3.12 mg/dl (0.61-1.24); GLUCOSE 140 mg/dl (70-220); POTASSIUM 4.8 mmol/L (3.5-5.1); SODIUM 143 mmol/L (135-144); TOTAL PROTEIN 6.3 g/dl (6.1-8.1)
[2018-02-02 15:23] LABS: HEMATOCRIT 26.5 % (42.0-52.0)
[2018-02-02] MEDS: EPOETIN 10000 UNITS/1 ML INJ (ESRD) SC (17:24)
[2018-02-02] MEDS: LACTULOSE 30ML CUP PO (22:03)
[2018-02-02] MEDS: ESCITALOPRAM 10 MG TAB PO (22:04)
[2018-02-02] MEDS: INSULIN GLARGINE [LANtus] 3 ML PEN SC (22:09)
[2018-02-03 06:14] LABS: ADD MAN DIFF? NO
[2018-02-03 06:22] LABS: ABNORMAL IP MESSAGE 1; BASOPHILS % 0.7 % (0.0-2.0); EOSINOPHILS # 0.3 10^3/ul (0.0-0.5); EOSINOPHILS % 7.4 % (0.0-7.0); HEMATOCRIT 24.8 % (42.0-52.0); HEMOGLOBIN 7.4 g/dl (14.0-18.0); LYMPHOCYTES # 0.6 10^3/ul (0.8-2.9); LYMPHOCYTES % 14.8 % (15.0-51.0); MEAN CORPUSCULAR HEMOGLOBIN 28.2 pg (29.0-33.0); MEAN CORPUSCULAR HGB CONC 29.8 g/dl (32.0-37.0); MEAN CORPUSCULAR VOLUME 94.7 fl (82.0-101.0); MEAN PLATELET VOLUME 12.4 fl (7.4-10.4); MONOCYTE # 0.4 10^3/ul (0.3-0.9); MONOCYTES % 8.6 % (0.0-11.0); NEUTROPHIL # 2.9 10^3/ul (1.6-7.5); NEUTROPHILS % 68.3 % (39.0-77.0); PLATELET COUNT 73 10^3/UL (140-415); POSITIVE DIFF @See below; RED BLOOD COUNT 2.62 10^6/ul (4.70-6.10); RED CELL DISTRIBUTION WIDTH 16.6 % (11.5-14.5)
[2018-02-03 06:22] LABS: WHITE BLOOD COUNT 4.2 10^3/ul (4.8-10.8)
[2018-02-03] MEDS: PANTOPRAZOLE (EC) 40 MG TAB PO ×2 (06:32→17:37)
[2018-02-03] MEDS: FUROSEMIDE 40 MG TAB PO ×2 (06:32→17:37)
[2018-02-03 06:54] LABS: ALANINE AMINOTRANSFERASE 31 IU/L (13-69); ALBUMIN 2.7 g/dl (3.3-4.9); ALBUMIN/GLOBULIN RATIO 0.65; ALKALINE PHOSPHATASE 191 IU/L (42-121); ANION GAP 14 (8-16); ASPARTATE AMINO TRANSFERASE 41 IU/L (15-46); BILIRUBIN,INDIRECT 0.5 mg/dl (0-1.1); BILIRUBIN,TOTAL 0.5 mg/dl (0.2-1.3); BLOOD UREA NITROGEN 75 mg/dl (7-20); CALCIUM 7.7 mg/dl (8.4-10.2); CARBON DIOXIDE 22 mmol/L (21-31); CHLORIDE 113 mmol/L (97-110); CREATININE 2.96 mg/dl (0.61-1.24); GLUCOSE 154 mg/dl (70-220); POTASSIUM 4.5 mmol/L (3.5-5.1); SODIUM 144 mmol/L (135-144); TOTAL PROTEIN 6.8 g/dl (6.1-8.1)
[2018-02-03] MEDS: PROPRANOLOL 10 MG TAB PO ×3 (08:21→21:18)
[2018-02-03] MEDS: INSULIN ASPART [NOVOLOG] 3 ML PEN SC ×4 (08:24→21:28)
[2018-02-03] MEDS: ACETAMINOPHEN 325 MG TAB PO (21:17)
[2018-02-03] MEDS: ESCITALOPRAM 10 MG TAB PO (21:18)
[2018-02-03] MEDS: LACTULOSE 30ML CUP PO (21:19)
[2018-02-03] MEDS: INSULIN GLARGINE [LANtus] 3 ML PEN SC (21:27)
[2018-02-03] MEDS: traZODone 50 MG TAB PO (23:03)
[2018-02-04 01:16] LABS: ADD MAN DIFF? NO
[2018-02-04 01:19] LABS: WHITE BLOOD COUNT 4.1 10^3/ul (4.8-10.8)
[2018-02-04 01:19] LABS: ABNORMAL IP MESSAGE 1; BASOPHILS % 0.2 % (0.0-2.0); EOSINOPHILS # 0.4 10^3/ul (0.0-0.5); EOSINOPHILS % 9.1 % (0.0-7.0); HEMATOCRIT 18.8 % (42.0-52.0); LYMPHOCYTES # 0.7 10^3/ul (0.8-2.9); LYMPHOCYTES % 17.2 % (15.0-51.0); MEAN CORPUSCULAR HEMOGLOBIN 27.9 pg (29.0-33.0); MEAN CORPUSCULAR HGB CONC 29.3 g/dl (32.0-37.0); MEAN CORPUSCULAR VOLUME 95.4 fl (82.0-101.0); MONOCYTE # 0.4 10^3/ul (0.3-0.9); MONOCYTES % 9.8 % (0.0-11.0); NEUTROPHIL # 2.6 10^3/ul (1.6-7.5); NEUTROPHILS % 63.5 % (39.0-77.0); PLATELET COUNT 67 10^3/UL (140-415); POSITIVE DIFF @See below; RED BLOOD COUNT 1.97 10^6/ul (4.70-6.10); RED CELL DISTRIBUTION WIDTH 16.9 % (11.5-14.5)
[2018-02-04 01:27] LABS: HEMOGLOBIN 5.5 g/dl (14.0-18.0)
[2018-02-04 06:21] LABS: ADD MAN DIFF? NO
[2018-02-04 06:23] LABS: ABNORMAL IP MESSAGE 1; BASOPHILS % 0.8 % (0.0-2.0); EOSINOPHILS # 0.4 10^3/ul (0.0-0.5); EOSINOPHILS % 9.4 % (0.0-7.0); HEMATOCRIT 19.9 % (42.0-52.0); LYMPHOCYTES # 0.7 10^3/ul (0.8-2.9); LYMPHOCYTES % 16.7 % (15.0-51.0); MEAN CORPUSCULAR HEMOGLOBIN 29.8 pg (29.0-33.0); MEAN CORPUSCULAR HGB CONC 30.7 g/dl (32.0-37.0); MEAN CORPUSCULAR VOLUME 97.1 fl (82.0-101.0); MONOCYTE # 0.4 10^3/ul (0.3-0.9); MONOCYTES % 10.6 % (0.0-11.0); NEUTROPHIL # 2.5 10^3/ul (1.6-7.5); NEUTROPHILS % 62.2 % (39.0-77.0); PLATELET COUNT 58 10^3/UL (140-415); POSITIVE DIFF @See below; RED BLOOD COUNT 2.05 10^6/ul (4.70-6.10); RED CELL DISTRIBUTION WIDTH 16.4 % (11.5-14.5)
[2018-02-04 06:28] LABS: HEMOGLOBIN 6.1 g/dl (14.0-18.0)
[2018-02-04 06:45] LABS: ANION GAP 8 (8-16); BLOOD UREA NITROGEN 76 mg/dl (7-20); CALCIUM 7.5 mg/dl (8.4-10.2); CARBON DIOXIDE 25 mmol/L (21-31); CHLORIDE 116 mmol/L (97-110); CREATININE 2.81 mg/dl (0.61-1.24); GLUCOSE 144 mg/dl (70-220); MAGNESIUM 2.2 mg/dl (1.7-2.5); PHOSPHORUS 4.2 mg/dl (2.5-4.9); POTASSIUM 4.9 mmol/L (3.5-5.1); SODIUM 144 mmol/L (135-144)
[2018-02-04] MEDS: PANTOPRAZOLE (EC) 40 MG TAB PO ×2 (06:46→17:12)
[2018-02-04] MEDS: FUROSEMIDE 40 MG TAB PO ×2 (06:47→17:13)
[2018-02-04] MEDS: PROPRANOLOL 10 MG TAB PO ×3 (09:00→20:38)
[2018-02-04] MEDS: INSULIN ASPART [NOVOLOG] 3 ML PEN SC ×4 (09:11→20:40)
[2018-02-04] MEDS ORDERED: GLUCAGON 1 MG INJ (09:47)
[2018-02-04] MEDS ORDERED: ETOMIDATE 20 MG INJ (09:51)
[2018-02-04] MEDS ORDERED: MIDAZOLAM 1 MG/ML 2 ML INJ (09:51)
[2018-02-04] MEDS ORDERED: ONDANSETRON 4 MG INJ IV (10:00)
[2018-02-04] MEDS ORDERED: LABETALOL HCL 20MG INJ IV (10:00)
[2018-02-04] MEDS ORDERED: hydrALAzine 20 MG INJ IV (10:00)
[2018-02-04] MEDS ORDERED: LIDOCAINE 2% (SDV) 5 ML INJ (10:05)
[2018-02-04 11:03] LABS: HEMATOCRIT 26.3 % (42.0-52.0)
[2018-02-04] MEDS: DESMOPRESSIN 20 MCG in SOD CHLORIDE 0.9% 50 ML IVPB (12:10)
[2018-02-04] MEDS: PEG/ELECTROLYTES 4L BTL PO (15:12)
[2018-02-04] MEDS: LACTULOSE 30ML CUP PO (20:36)
[2018-02-04] MEDS: ESCITALOPRAM 10 MG TAB PO (20:37)
[2018-02-04] MEDS: INSULIN GLARGINE [LANtus] 3 ML PEN SC (20:39)
[2018-02-04 22:35] LABS: POTASSIUM 5.8 mmol/L (3.5-5.1)
[2018-02-04 22:38] LABS: INR 1.25; PROTIME 15.9 Sec (11.9-14.9); PT RATIO 1.2
[2018-02-04 22:39] LABS: PARTIAL THROMBOPLASTIN TIME 39.4 Sec (25.0-35.0)
[2018-02-04 23:04] LABS: HEMATOCRIT 19.9 % (42.0-52.0)
[2018-02-04 23:06] LABS: HEMOGLOBIN 6.2 g/dl (14.0-18.0)
[2018-02-05] MEDS: NA POLYST SULFON 15 GM/60 ML BTL PO (00:30)
[2018-02-05 01:05] LABS: IMMEDIATE SPIN CROSSMATCH 1
[2018-02-05] MEDS: SOD CHLORIDE 0.9% 250 ML IV* ×2 (01:25→05:20)
[2018-02-05 05:04] LABS: IMMEDIATE SPIN CROSSMATCH 1 5
[2018-02-05] MEDS: FUROSEMIDE 40 MG TAB PO ×2 (06:15→17:26)
[2018-02-05] MEDS: PANTOPRAZOLE (EC) 40 MG TAB PO ×2 (06:15→17:26)
[2018-02-05] MEDS: PROPRANOLOL 10 MG TAB PO ×3 (08:51→21:00)
[2018-02-05] MEDS: INSULIN ASPART [NOVOLOG] 3 ML PEN SC ×4 (08:54→21:00)
[2018-02-05] MEDS ORDERED: LIDOCAINE 1% (MPF) 5 ML VIAL SC (09:00)
[2018-02-05 09:56] LABS: ADD MAN DIFF? NO
[2018-02-05 10:02] LABS: ABNORMAL IP MESSAGE 1; BASOPHILS % 0.3 % (0.0-2.0); EOSINOPHILS # 0.3 10^3/ul (0.0-0.5); EOSINOPHILS % 8.8 % (0.0-7.0); HEMATOCRIT 18.5 % (42.0-52.0); LYMPHOCYTES # 0.6 10^3/ul (0.8-2.9); LYMPHOCYTES % 17.6 % (15.0-51.0); MEAN CORPUSCULAR HEMOGLOBIN 28.7 pg (29.0-33.0); MEAN CORPUSCULAR HGB CONC 30.3 g/dl (32.0-37.0); MEAN CORPUSCULAR VOLUME 94.9 fl (82.0-101.0); MEAN PLATELET VOLUME 12.5 fl (7.4-10.4); MONOCYTE # 0.3 10^3/ul (0.3-0.9); MONOCYTES % 8.8 % (0.0-11.0); NEUTROPHIL # 2.2 10^3/ul (1.6-7.5); NEUTROPHILS % 64.2 % (39.0-77.0); PLATELET COUNT 58 10^3/UL (140-415); POSITIVE DIFF @See below; RED BLOOD COUNT 1.95 10^6/ul (4.70-6.10); RED CELL DISTRIBUTION WIDTH 16.8 % (11.5-14.5)
[2018-02-05 10:02] LABS: WHITE BLOOD COUNT 3.4 10^3/ul (4.8-10.8)
[2018-02-05 10:14] LABS: HEMOGLOBIN 5.6 g/dl (14.0-18.0)
[2018-02-05 10:20] LABS: ALANINE AMINOTRANSFERASE 33 IU/L (13-69); ALBUMIN 2.1 g/dl (3.3-4.9); ALBUMIN/GLOBULIN RATIO 0.65; ALKALINE PHOSPHATASE 141 IU/L (42-121); ANION GAP 9 (8-16); ASPARTATE AMINO TRANSFERASE 40 IU/L (15-46); BILIRUBIN,INDIRECT 0.6 mg/dl (0-1.1); BILIRUBIN,TOTAL 0.6 mg/dl (0.2-1.3); BLOOD UREA NITROGEN 70 mg/dl (7-20); CALCIUM 7.6 mg/dl (8.4-10.2); CARBON DIOXIDE 27 mmol/L (21-31); CHLORIDE 114 mmol/L (97-110); CREATININE 2.62 mg/dl (0.61-1.24); GLUCOSE 145 mg/dl (70-220); POTASSIUM 4.9 mmol/L (3.5-5.1); SODIUM 145 mmol/L (135-144); TOTAL PROTEIN 5.3 g/dl (6.1-8.1)
[2018-02-05 10:31] LABS: ANION GAP 10 (8-16); BLOOD UREA NITROGEN 70 mg/dl (7-20); CALCIUM 7.3 mg/dl (8.4-10.2); CARBON DIOXIDE 27 mmol/L (21-31); CHLORIDE 115 mmol/L (97-110); CREATININE 2.59 mg/dl (0.61-1.24); GLUCOSE 145 mg/dl (70-220); PHOSPHORUS 4.6 mg/dl (2.5-4.9); POTASSIUM 4.9 mmol/L (3.5-5.1); SODIUM 147 mmol/L (135-144)
[2018-02-05 12:46] LABS: IMMEDIATE SPIN CROSSMATCH 1 4
[2018-02-05 17:31] LABS: HEMATOCRIT 18.1 % (42.0-52.0)
[2018-02-05 17:39] LABS: HEMOGLOBIN 5.5 g/dl (14.0-18.0)
[2018-02-05] MEDS: FUROSEMIDE 40 MG INJ IV (20:17)
[2018-02-05] MEDS: LACTULOSE 30ML CUP PO (21:00)
[2018-02-05] MEDS: ESCITALOPRAM 10 MG TAB PO (21:46)
[2018-02-05] MEDS: INSULIN GLARGINE [LANtus] 3 ML PEN SC (21:48)
[2018-02-06 00:44] LABS: IMMEDIATE SPIN CROSSMATCH 1
[2018-02-06 05:38] LABS: WHITE BLOOD COUNT 3.7 10^3/ul (4.8-10.8)
[2018-02-06 05:38] LABS: ABNORMAL IP MESSAGE 1; ADD MAN DIFF? NO; BASOPHILS % 0.5 % (0.0-2.0); EOSINOPHILS # 0.2 10^3/ul (0.0-0.5); EOSINOPHILS % 5.5 % (0.0-7.0); HEMATOCRIT 23.9 % (42.0-52.0); HEMOGLOBIN 7.6 g/dl (14.0-18.0); LYMPHOCYTES # 0.5 10^3/ul (0.8-2.9); LYMPHOCYTES % 14.8 % (15.0-51.0); MEAN CORPUSCULAR HEMOGLOBIN 28.7 pg (29.0-33.0); MEAN CORPUSCULAR HGB CONC 31.8 g/dl (32.0-37.0); MEAN CORPUSCULAR VOLUME 90.2 fl (82.0-101.0); MEAN PLATELET VOLUME 10.8 fl (7.4-10.4); MONOCYTE # 0.3 10^3/ul (0.3-0.9); MONOCYTES % 7.9 % (0.0-11.0); NEUTROPHIL # 2.6 10^3/ul (1.6-7.5); NEUTROPHILS % 70.8 % (39.0-77.0); PLATELET COUNT 47 10^3/UL (140-415); POSITIVE DIFF @See below; RED BLOOD COUNT 2.65 10^6/ul (4.70-6.10); RED CELL DISTRIBUTION WIDTH 17.8 % (11.5-14.5)
[2018-02-06 06:12] LABS: ALANINE AMINOTRANSFERASE 32 IU/L (13-69); ALBUMIN 2.4 g/dl (3.3-4.9); ALBUMIN/GLOBULIN RATIO 0.68; ALKALINE PHOSPHATASE 117 IU/L (42-121); ASPARTATE AMINO TRANSFERASE 42 IU/L (15-46); BILIRUBIN,INDIRECT 1.3 mg/dl (0-1.1); BILIRUBIN,TOTAL 1.3 mg/dl (0.2-1.3); BLOOD UREA NITROGEN 66 mg/dl (7-20); CALCIUM 7.8 mg/dl (8.4-10.2); CARBON DIOXIDE 26 mmol/L (21-31); CHLORIDE 114 mmol/L (97-110); CREATININE 2.42 mg/dl (0.61-1.24); GLUCOSE 88 mg/dl (70-220); SODIUM 148 mmol/L (135-144); TOTAL PROTEIN 5.9 g/dl (6.1-8.1)
[2018-02-06 06:15] LABS: ANION GAP 12 (8-16); POTASSIUM 4.1 mmol/L (3.5-5.1)
[2018-02-06] MEDS: PANTOPRAZOLE (EC) 40 MG TAB PO ×2 (06:33→17:32)
[2018-02-06] MEDS: FUROSEMIDE 40 MG TAB PO (06:33)
[2018-02-06] MEDS: INSULIN ASPART [NOVOLOG] 3 ML PEN SC ×3 (08:00→17:33)
[2018-02-06] MEDS: PROPRANOLOL 10 MG TAB PO ×2 (08:23→12:45)
[2018-02-06] MEDS ORDERED: MIDAZOLAM 1 MG/ML 2 ML INJ (10:37)
[2018-02-06] MEDS ORDERED: PROPOFOL 20 ML ×2 (10:37→11:00)
[2018-02-06] MEDS ORDERED: LIDOCAINE 2% (SDV) 5 ML INJ (10:37)
[2018-02-06] MEDS ORDERED: ONDANSETRON 4 MG INJ IV (11:00)
[2018-02-06] MEDS ORDERED: LABETALOL HCL 20MG INJ IV (11:00)
[2018-02-06] MEDS ORDERED: hydrALAzine 20 MG INJ IV (11:00)
== END 2018-02-06 17:30 | disposition short-term general hospital (02) | DRG 378 ==
LOC: E/R 09:30 → MS4 02-01 15:07 → MS1 02-01 15:11 → MS4 02-01 15:26 → MS1 11:18
PROC: 0DJ08ZZ Inspection of Upper Intestinal Tract, Via Natural or Artificial Opening Endoscopic (ICD-10-PCS; principal; 2018-02-04 09:00)
PROC: 0DJD8ZZ Inspection of Lower Intestinal Tract, Via Natural or Artificial Opening Endoscopic (ICD-10-PCS; 2018-02-04 09:50)
PROC: 5A1D70Z Performance of Urinary Filtration, Intermittent, Less than 6 Hours Per Day (ICD-10-PCS; 2018-02-04 09:50)
PROC: 30233N1 Transfusion of Nonautologous Red Blood Cells into Peripheral Vein, Percutaneous Approach (ICD-10-PCS; 2018-02-04 09:50)
PROC: 30233N1 Transfusion of Nonautologous Red Blood Cells into Peripheral Vein, Percutaneous Approach (ICD-10-PCS; 2018-02-04 09:50)
PROC: 30233N1 Transfusion of Nonautologous Red Blood Cells into Peripheral Vein, Percutaneous Approach (ICD-10-PCS; 2018-02-04 09:50)
PROC: 30233N1 Transfusion of Nonautologous Red Blood Cells into Peripheral Vein, Percutaneous Approach (ICD-10-PCS; 2018-02-04 09:50)
PROC: 30233K1 Transfusion of Nonautologous Frozen Plasma into Peripheral Vein, Percutaneous Approach (ICD-10-PCS; 2018-02-04 09:50)
PROC: 02HV33Z Insertion of Infusion Device into Superior Vena Cava, Percutaneous Approach (ICD-10-PCS; 2018-02-04 09:50)
PROC: B548ZZA Ultrasonography of Superior Vena Cava, Guidance (ICD-10-PCS; 2018-02-04 09:50)
DX: K92.1 Melena (principal); I13.2 Hypertensive heart and chronic kidney disease with heart failure and with stage 5 chronic kidney disease, or end stage renal disease; N18.5 Chronic kidney disease, stage 5; K76.6 Portal hypertension; R18.8 Other ascites; D62 Acute posthemorrhagic anemia; I85.00 Esophageal varices without bleeding; E11.22 Type 2 diabetes mellitus with diabetic chronic kidney disease; I50.9 Heart failure, unspecified; D69.59 Other secondary thrombocytopenia; E66.01 Morbid (severe) obesity due to excess calories; K74.69 Other cirrhosis of liver; K72.90 Hepatic failure, unspecified without coma; Z68.37 Body mass index [BMI] 37.0-37.9, adult; B18.2 Chronic viral hepatitis C; G47.33 Obstructive sleep apnea (adult) (pediatric); F32.9 Major depressive disorder, single episode, unspecified; I86.4 Gastric varices; K64.2 Third degree hemorrhoids; K29.70 Gastritis, unspecified, without bleeding; K31.811 Angiodysplasia of stomach and duodenum with bleeding; Z79.4 Long term (current) use of insulin; Z87.11 Personal history of peptic ulcer disease; Z87.891 Personal history of nicotine dependence
CPT/HCPCS: 36415; 36430; 36569; 71045; 76705; 76937; 80048; 80053; 82140; 82270; 82962; 83690; 83735; 84100; 84132; 84484; 85014; 85018; 85025; 85610; 85730; 86850; 86900; 86901; 86920; 90935; 93005; 93306; 93931; 96374; 99291-25

== ENCOUNTER → 2018-02-13 | Outpatient (CLI) | payer BC, MEDICARE ==
[2018-02-13 15:22] LABS: ADD MAN DIFF? NO
[2018-02-13 15:25] LABS: WHITE BLOOD COUNT 4.6 10^3/ul (4.8-10.8)
[2018-02-13 15:25] LABS: BASOPHILS % 0.7 % (0.0-2.0); EOSINOPHILS # 0.3 10^3/ul (0.0-0.5); EOSINOPHILS % 5.7 % (0.0-7.0); HEMATOCRIT 27.2 % (42.0-52.0); HEMOGLOBIN 8.2 g/dl (14.0-18.0); LYMPHOCYTES # 0.7 10^3/ul (0.8-2.9); LYMPHOCYTES % 14.6 % (15.0-51.0); MEAN CORPUSCULAR HGB CONC 30.1 g/dl (32.0-37.0); MEAN CORPUSCULAR VOLUME 96.1 fl (82.0-101.0); MEAN PLATELET VOLUME 11.6 fl (7.4-10.4); MONOCYTE # 0.4 10^3/ul (0.3-0.9); MONOCYTES % 8.5 % (0.0-11.0); NEUTROPHIL # 3.2 10^3/ul (1.6-7.5); NEUTROPHILS % 70.1 % (39.0-77.0); PLATELET COUNT 100 10^3/UL (140-415); RED BLOOD COUNT 2.83 10^6/ul (4.70-6.10); RED CELL DISTRIBUTION WIDTH 17.7 % (11.5-14.5)
[2018-02-13 15:44] LABS: AMMONIA 10 umol/l (9-30)
[2018-02-13 15:48] LABS: ALANINE AMINOTRANSFERASE 29 IU/L (13-69); ALBUMIN 2.8 g/dl (3.3-4.9); ALBUMIN/GLOBULIN RATIO 0.68; ALKALINE PHOSPHATASE 164 IU/L (42-121); ANION GAP 13 (8-16); ASPARTATE AMINO TRANSFERASE 40 IU/L (15-46); BLOOD UREA NITROGEN 60 mg/dl (7-20); CARBON DIOXIDE 23 mmol/L (21-31); CHLORIDE 111 mmol/L (97-110); CREATININE 3.13 mg/dl (0.61-1.24); GLUCOSE 140 mg/dl (70-220); POTASSIUM 5.4 mmol/L (3.5-5.1); SODIUM 142 mmol/L (135-144); TOTAL PROTEIN 6.9 g/dl (6.1-8.1)
[2018-02-13 15:57] LABS: B-TYPE NATRIURETIC PEPTIDE 12600 PG/ML (0-125)
== END | disposition home or self-care (01) ==
LOC: LAB 14:29
DX: N18.4 Chronic kidney disease, stage 4 (severe) (principal); R06.02 Shortness of breath; G93.40 Encephalopathy, unspecified
CPT/HCPCS: 80053; 82140; 83880; 85025

== ENCOUNTER 2018-02-15 11:48 | Inpatient (IN) | payer BC, MEDICARE ==
[2018-02-15] MEDS ORDERED: NACL 0.9% 3 ML SYG IV (14:00)
[2018-02-15] MEDS ORDERED: ONDANSETRON 4 MG INJ IV (14:00)
[2018-02-15] MEDS ORDERED: GLUCOSE GEL 15 GRAM TUBE BUCCAL (18:00)
[2018-02-15] MEDS ORDERED: DEXTROSE 50% 50 ML SYRINGE IV ×2 (18:00)
[2018-02-15] MEDS ORDERED: GLUCOSE GEL 15 GRAM TUBE PO ×2 (18:00)
[2018-02-15] MEDS ORDERED: GLUCAGON 1 MG INJ IM (18:00)
[2018-02-15] MEDS: INSULIN ASPART [NOVOLOG] 3 ML PEN SC ×2 (18:30→21:00)
[2018-02-15] MEDS: PANTOPRAZOLE (EC) 40 MG TAB PO (18:43)
[2018-02-15] MEDS: FUROSEMIDE 40 MG TAB PO (18:43)
[2018-02-15] MEDS: HYDROCODONE/APAP (5/325) TAB PO (19:54)
[2018-02-15] MEDS ORDERED: INSULIN GLARGINE [LANtus] 3 ML PEN SC ×2 (20:00→21:00)
[2018-02-15] MEDS ORDERED: PANTOPRAZOLE (EC) 40 MG TAB PO (21:00)
[2018-02-15] MEDS: ESCITALOPRAM 10 MG TAB PO (21:26)
[2018-02-15] MEDS: ATORVASTATIN 10 MG TAB PO (21:26)
[2018-02-15] MEDS: GUAIFENESIN/DM 5ML CUP PO (21:27)
[2018-02-15] MEDS: PROPRANOLOL 10 MG TAB PO (21:27)
[2018-02-15] MEDS: INSULIN GLARGINE [LANtus] 3 ML PEN SC (21:29)
[2018-02-15] MEDS: LACTULOSE 30ML CUP PO (21:31)
[2018-02-16 01:15] LABS: ADD UMIC YES; UR ASCORBIC ACID NEGATIVE (NEGATIVE); UR BACTERIA FEW /HPF (NONE SEEN); UR BILIRUBIN (Dip) NEGATIVE (NEGATIVE); UR BLOOD (Dip) NEGATIVE (NEGATIVE); UR CLARITY CLEAR (CLEAR); UR COLOR YELLOW (YELLOW); UR GLUCOSE (Dip) NEGATIVE (NEGATIVE); UR KETONES (Dip) NEGATIVE (NEGATIVE); UR LEUKOCYTE ESTERASE (Dip) NEGATIVE Leu/ul (NEGATIVE); UR NITRITE (Dip) NEGATIVE (NEGATIVE); UR RBC 1 /HPF (0-5); UR SPECIFIC GRAVITY (Dip) 1.009 (1.003-1.030); UR TOTAL PROTEIN (Dip) 2+ mg/dl (NEGATIVE); UR UROBILINOGEN (Dip) NEGATIVE (NEGATIVE); UR WBC 0 /HPF (0-5)
[2018-02-16] MEDS: ACCU-CHEK XX (02:00)
[2018-02-16] MEDS ORDERED: PANTOPRAZOLE (EC) 40 MG TAB PO (06:00)
[2018-02-16] MEDS: PANTOPRAZOLE (EC) 40 MG TAB PO ×2 (08:02→18:55)
[2018-02-16] MEDS: INSULIN ASPART [NOVOLOG] 3 ML PEN SC ×4 (08:02→21:53)
[2018-02-16] MEDS: FUROSEMIDE 40 MG TAB PO ×2 (08:03→19:00)
[2018-02-16] MEDS: PROPRANOLOL 10 MG TAB PO ×3 (08:04→21:47)
[2018-02-16] MEDS: LIDOCAINE 1% (MPF) 5 ML VIAL SC (09:30)
[2018-02-16] MEDS: HYDROCORTISONE 25 MG SUPP PR ×2 (12:21→21:46)
[2018-02-16 18:58] LABS: WHITE BLOOD COUNT 3.3 10^3/ul (4.8-10.8)
[2018-02-16 18:58] LABS: ABNORMAL IP MESSAGE 1; HEMATOCRIT 22.1 % (42.0-52.0); MEAN CORPUSCULAR HEMOGLOBIN 28.4 pg (29.0-33.0); MEAN CORPUSCULAR HGB CONC 29.9 g/dl (32.0-37.0); MEAN CORPUSCULAR VOLUME 95.3 fl (82.0-101.0); MEAN PLATELET VOLUME 11.5 fl (7.4-10.4); PLATELET COUNT 71 10^3/UL (140-415); POSITIVE DIFF @See below; RED BLOOD COUNT 2.32 10^6/ul (4.70-6.10); RED CELL DISTRIBUTION WIDTH 17.7 % (11.5-14.5)
[2018-02-16 19:03] LABS: HEMOGLOBIN 6.6 g/dl (14.0-18.0)
[2018-02-16 19:04] LABS: ADD MAN DIFF? YES
[2018-02-16 19:15] LABS: ANION GAP 11 (8-16); BLOOD UREA NITROGEN 67 mg/dl (7-20); CALCIUM 7.7 mg/dl (8.4-10.2); CARBON DIOXIDE 24 mmol/L (21-31); CHLORIDE 113 mmol/L (97-110); GLUCOSE 188 mg/dl (70-220); POTASSIUM 5.2 mmol/L (3.5-5.1); SODIUM 143 mmol/L (135-144)
[2018-02-16 19:29] LABS: HEMOGLOBIN A1C 5.9 % (0-5.9)
[2018-02-16 19:33] LABS: INR 1.24; PROTIME 15.8 Sec (11.9-14.9); PT RATIO 1.2
[2018-02-16 20:01] LABS: ANISOCYTOSIS 1+ (0-0); BAND NEUTROPHILS % (M) 2 % (0-4); BASOPHILS % (M) 1 % (0-2); EOSINOPHILS % (M) 11 % (0-7); HYPOCHROMASIA 1+ (0-0); LYMPHOCYTES #M 0.3 10^3/ul (0.8-2.9); LYMPHOCYTES % (M) 12 % (15-51); METAMYELOCYTES %M 3 % (0-0); MONOCYTES % (M) 3 % (0-11); PLATELET ESTIMATE DECREASED; POIKILOCYTOSIS 1+ (0-0); POLYCHROMASIA 2+ (0-0); SEG NEUT #M 2.2 10^3/ul (1.6-7.5); SEGMENTED NEUTROPHILS (M) % 68 % (39-77); SMUDGE%M 3 % (0-0)
[2018-02-16] MEDS: ESCITALOPRAM 10 MG TAB PO (21:46)
[2018-02-16] MEDS: LACTULOSE 30ML CUP PO (21:47)
[2018-02-16] MEDS: ATORVASTATIN 10 MG TAB PO (21:47)
[2018-02-16] MEDS: INSULIN GLARGINE [LANtus] 3 ML PEN SC (21:52)
[2018-02-16] MEDS: PHYTONADIONE (1 MG/ML PO SYG) PO (22:32)
[2018-02-17] MEDS: ACCU-CHEK XX (02:00)
[2018-02-17] MEDS: PANTOPRAZOLE (EC) 40 MG TAB PO ×3 (05:08→21:18)
[2018-02-17] MEDS: FUROSEMIDE 40 MG INJ IV (05:08)
[2018-02-17] MEDS: FUROSEMIDE 40 MG TAB PO ×3 (05:09→21:21)
[2018-02-17] MEDS: INSULIN ASPART [NOVOLOG] 3 ML PEN SC ×4 (07:59→21:00)
[2018-02-17] MEDS: PROPRANOLOL 10 MG TAB PO ×3 (08:00→21:21)
[2018-02-17] MEDS: HYDROCORTISONE 25 MG SUPP PR ×2 (08:00→21:17)
[2018-02-17 14:09] LABS: ADD MAN DIFF? NO
[2018-02-17 14:11] LABS: ABNORMAL IP MESSAGE 1; BASOPHILS % 0.8 % (0.0-2.0); EOSINOPHILS # 0.2 10^3/ul (0.0-0.5); EOSINOPHILS % 5.5 % (0.0-7.0); HEMATOCRIT 26.5 % (42.0-52.0); HEMOGLOBIN 8.2 g/dl (14.0-18.0); LYMPHOCYTES # 0.5 10^3/ul (0.8-2.9); LYMPHOCYTES % 13.5 % (15.0-51.0); MEAN CORPUSCULAR HEMOGLOBIN 29.1 pg (29.0-33.0); MEAN CORPUSCULAR HGB CONC 30.9 g/dl (32.0-37.0); MEAN PLATELET VOLUME 11.5 fl (7.4-10.4); MONOCYTE # 0.4 10^3/ul (0.3-0.9); NEUTROPHIL # 2.8 10^3/ul (1.6-7.5); NEUTROPHILS % 71.2 % (39.0-77.0); PLATELET COUNT 75 10^3/UL (140-415); POSITIVE DIFF @See below; RED BLOOD COUNT 2.82 10^6/ul (4.70-6.10); RED CELL DISTRIBUTION WIDTH 17.3 % (11.5-14.5)
[2018-02-17 14:28] LABS: ALANINE AMINOTRANSFERASE 27 IU/L (13-69); ALBUMIN 2.6 g/dl (3.3-4.9); ALBUMIN/GLOBULIN RATIO 0.66; ALKALINE PHOSPHATASE 179 IU/L (42-121); ANION GAP 11 (8-16); ASPARTATE AMINO TRANSFERASE 35 IU/L (15-46); BILIRUBIN,INDIRECT 0.9 mg/dl (0-1.1); BILIRUBIN,TOTAL 0.9 mg/dl (0.2-1.3); BLOOD UREA NITROGEN 68 mg/dl (7-20); CALCIUM 7.8 mg/dl (8.4-10.2); CARBON DIOXIDE 23 mmol/L (21-31); CHLORIDE 114 mmol/L (97-110); CREATININE 3.01 mg/dl (0.61-1.24); GLUCOSE 146 mg/dl (70-220); POTASSIUM 4.9 mmol/L (3.5-5.1); SODIUM 143 mmol/L (135-144); TOTAL PROTEIN 6.5 g/dl (6.1-8.1)
[2018-02-17] MEDS: ALBUTEROL 0.083% (NEB) 2.5 MG/3 ML AMP HHN ×2 (15:00→19:32)
[2018-02-17] MEDS: LIDOCAINE 1% (MDV) 10 ML INJ (18:48)
[2018-02-17] MEDS: LACTULOSE 30ML CUP PO (21:00)
[2018-02-17] MEDS: ATORVASTATIN 10 MG TAB PO (21:17)
[2018-02-17] MEDS: ESCITALOPRAM 10 MG TAB PO (21:17)
[2018-02-17] MEDS: INSULIN GLARGINE [LANtus] 3 ML PEN SC (22:10)
[2018-02-18] MEDS: ALBUTEROL 0.083% (NEB) 2.5 MG/3 ML AMP HHN ×4 (01:25→19:28)
[2018-02-18] MEDS: ACCU-CHEK XX (02:00)
[2018-02-18] MEDS: PANTOPRAZOLE (EC) 40 MG TAB PO ×2 (05:41→17:34)
[2018-02-18] MEDS: FUROSEMIDE 40 MG TAB PO ×2 (05:44→17:36)
[2018-02-18 06:08] LABS: ADD MAN DIFF? NO
[2018-02-18 06:13] LABS: WHITE BLOOD COUNT 3.7 10^3/ul (4.8-10.8)
[2018-02-18 06:13] LABS: ABNORMAL IP MESSAGE 1; BASOPHILS % 1.1 % (0.0-2.0); EOSINOPHILS # 0.2 10^3/ul (0.0-0.5); EOSINOPHILS % 6.2 % (0.0-7.0); HEMATOCRIT 25.3 % (42.0-52.0); HEMOGLOBIN 7.8 g/dl (14.0-18.0); LYMPHOCYTES # 0.6 10^3/ul (0.8-2.9); LYMPHOCYTES % 16.4 % (15.0-51.0); MEAN CORPUSCULAR HEMOGLOBIN 28.9 pg (29.0-33.0); MEAN CORPUSCULAR HGB CONC 30.8 g/dl (32.0-37.0); MEAN CORPUSCULAR VOLUME 93.7 fl (82.0-101.0); MEAN PLATELET VOLUME 11.4 fl (7.4-10.4); MONOCYTE # 0.4 10^3/ul (0.3-0.9); MONOCYTES % 9.7 % (0.0-11.0); NEUTROPHIL # 2.5 10^3/ul (1.6-7.5); NEUTROPHILS % 66.3 % (39.0-77.0); PLATELET COUNT 79 10^3/UL (140-415); POSITIVE DIFF @See below; RED CELL DISTRIBUTION WIDTH 17.5 % (11.5-14.5)
[2018-02-18 06:33] LABS: ALANINE AMINOTRANSFERASE 28 IU/L (13-69); ALBUMIN 2.3 g/dl (3.3-4.9); ALBUMIN/GLOBULIN RATIO 0.62; ALKALINE PHOSPHATASE 164 IU/L (42-121); ANION GAP 13 (8-16); ASPARTATE AMINO TRANSFERASE 29 IU/L (15-46); BILIRUBIN,INDIRECT 0.7 mg/dl (0-1.1); BILIRUBIN,TOTAL 0.7 mg/dl (0.2-1.3); BLOOD UREA NITROGEN 68 mg/dl (7-20); CALCIUM 7.7 mg/dl (8.4-10.2); CARBON DIOXIDE 22 mmol/L (21-31); CHLORIDE 114 mmol/L (97-110); CREATININE 2.92 mg/dl (0.61-1.24); GLUCOSE 187 mg/dl (70-220); POTASSIUM 4.6 mmol/L (3.5-5.1); SODIUM 144 mmol/L (135-144)
[2018-02-18] MEDS: INSULIN ASPART [NOVOLOG] 3 ML PEN SC ×4 (08:07→20:44)
[2018-02-18] MEDS: PROPRANOLOL 10 MG TAB PO ×3 (08:45→20:39)
[2018-02-18] MEDS: PHYTONADIONE (1 MG/ML PO SYG) PO (08:46)
[2018-02-18] MEDS: HYDROCORTISONE 25 MG SUPP PR ×3 (08:46→20:48)
[2018-02-18] MEDS: ATORVASTATIN 10 MG TAB PO (20:38)
[2018-02-18] MEDS: ESCITALOPRAM 10 MG TAB PO (20:38)
[2018-02-18] MEDS: LACTULOSE 30ML CUP PO ×2 (20:39→20:48)
[2018-02-18] MEDS: INSULIN GLARGINE [LANtus] 3 ML PEN SC (20:43)
[2018-02-19] MEDS: ALBUTEROL 0.083% (NEB) 2.5 MG/3 ML AMP HHN ×4 (01:33→19:37)
[2018-02-19] MEDS: ACCU-CHEK XX (02:00)
[2018-02-19 05:48] LABS: ADD MAN DIFF? NO
[2018-02-19 06:04] LABS: WHITE BLOOD COUNT 3.6 10^3/ul (4.8-10.8)
[2018-02-19 06:04] LABS: ABNORMAL IP MESSAGE 1; BASOPHILS % 0.8 % (0.0-2.0); EOSINOPHILS # 0.2 10^3/ul (0.0-0.5); EOSINOPHILS % 6.2 % (0.0-7.0); HEMATOCRIT 23.1 % (42.0-52.0); HEMOGLOBIN 7.1 g/dl (14.0-18.0); LYMPHOCYTES # 0.5 10^3/ul (0.8-2.9); LYMPHOCYTES % 13.8 % (15.0-51.0); MEAN CORPUSCULAR HEMOGLOBIN 28.7 pg (29.0-33.0); MEAN CORPUSCULAR HGB CONC 30.7 g/dl (32.0-37.0); MEAN CORPUSCULAR VOLUME 93.5 fl (82.0-101.0); MONOCYTE # 0.4 10^3/ul (0.3-0.9); MONOCYTES % 11.8 % (0.0-11.0); NEUTROPHIL # 2.4 10^3/ul (1.6-7.5); NEUTROPHILS % 67.1 % (39.0-77.0); PLATELET COUNT 77 10^3/UL (140-415); POSITIVE DIFF @See below; RED BLOOD COUNT 2.47 10^6/ul (4.70-6.10); RED CELL DISTRIBUTION WIDTH 17.6 % (11.5-14.5)
[2018-02-19 06:21] LABS: ANION GAP 14 (8-16); BLOOD UREA NITROGEN 60 mg/dl (7-20); CALCIUM 7.7 mg/dl (8.4-10.2); CARBON DIOXIDE 23 mmol/L (21-31); CHLORIDE 113 mmol/L (97-110); CREATININE 3.02 mg/dl (0.61-1.24); GLUCOSE 141 mg/dl (70-220); POTASSIUM 4.8 mmol/L (3.5-5.1); SODIUM 145 mmol/L (135-144)
[2018-02-19] MEDS: METOLAZONE 2.5 MG TAB PO ×2 (06:27→08:28)
[2018-02-19] MEDS: PANTOPRAZOLE (EC) 40 MG TAB PO ×2 (06:27→17:32)
[2018-02-19] MEDS: FUROSEMIDE 40 MG TAB PO ×3 (08:28→17:33)
[2018-02-19] MEDS: HYDROCORTISONE 25 MG SUPP PR ×2 (08:28→20:21)
[2018-02-19] MEDS: PROPRANOLOL 10 MG TAB PO ×3 (08:29→20:20)
[2018-02-19] MEDS: PHYTONADIONE (1 MG/ML PO SYG) PO (08:29)
[2018-02-19] MEDS: INSULIN ASPART [NOVOLOG] 3 ML PEN SC ×4 (08:53→20:36)
[2018-02-19 15:51] LABS: IMMEDIATE SPIN CROSSMATCH 1 3
[2018-02-19] MEDS: ESCITALOPRAM 10 MG TAB PO (20:20)
[2018-02-19] MEDS: ATORVASTATIN 10 MG TAB PO (20:20)
[2018-02-19] MEDS: INSULIN GLARGINE [LANtus] 3 ML PEN SC (20:30)
[2018-02-19] MEDS: LACTULOSE 30ML CUP PO (21:00)
[2018-02-20] MEDS: ALBUTEROL 0.083% (NEB) 2.5 MG/3 ML AMP HHN ×4 (01:55→19:36)
[2018-02-20] MEDS: ACCU-CHEK XX (02:47)
[2018-02-20] MEDS: PANTOPRAZOLE (EC) 40 MG TAB PO ×2 (06:17→17:09)
[2018-02-20] MEDS: PROPRANOLOL 10 MG TAB PO ×3 (08:12→20:46)
[2018-02-20] MEDS: METOLAZONE 2.5 MG TAB PO (08:12)
[2018-02-20] MEDS: FUROSEMIDE 40 MG TAB PO ×3 (08:12→17:03)
[2018-02-20] MEDS: HYDROCORTISONE 25 MG SUPP PR ×2 (08:13→20:45)
[2018-02-20] MEDS: PHYTONADIONE (1 MG/ML PO SYG) PO (08:13)
[2018-02-20] MEDS: INSULIN ASPART [NOVOLOG] 3 ML PEN SC ×4 (08:20→20:49)
[2018-02-20 11:49] LABS: ADD MAN DIFF? NO
[2018-02-20 11:50] LABS: WHITE BLOOD COUNT 3.7 10^3/ul (4.8-10.8)
[2018-02-20 11:51] LABS: ABNORMAL IP MESSAGE 1; BASOPHILS % 0.5 % (0.0-2.0); EOSINOPHILS # 0.2 10^3/ul (0.0-0.5); EOSINOPHILS % 6.2 % (0.0-7.0); HEMATOCRIT 25.6 % (42.0-52.0); LYMPHOCYTES # 0.4 10^3/ul (0.8-2.9); LYMPHOCYTES % 11.5 % (15.0-51.0); MEAN CORPUSCULAR HEMOGLOBIN 29.4 pg (29.0-33.0); MEAN CORPUSCULAR HGB CONC 31.3 g/dl (32.0-37.0); MEAN CORPUSCULAR VOLUME 94.1 fl (82.0-101.0); MEAN PLATELET VOLUME 10.6 fl (7.4-10.4); MONOCYTE # 0.3 10^3/ul (0.3-0.9); MONOCYTES % 8.3 % (0.0-11.0); NEUTROPHIL # 2.7 10^3/ul (1.6-7.5); NEUTROPHILS % 73.2 % (39.0-77.0); PLATELET COUNT 77 10^3/UL (140-415); POSITIVE DIFF @See below; RED BLOOD COUNT 2.72 10^6/ul (4.70-6.10); RED CELL DISTRIBUTION WIDTH 17.6 % (11.5-14.5)
[2018-02-20 12:33] LABS: ALANINE AMINOTRANSFERASE 22 IU/L (13-69); ALBUMIN 2.5 g/dl (3.3-4.9); ALBUMIN/GLOBULIN RATIO 0.62; ALKALINE PHOSPHATASE 173 IU/L (42-121); ANION GAP 13 (8-16); ASPARTATE AMINO TRANSFERASE 25 IU/L (15-46); BILIRUBIN,INDIRECT 1.1 mg/dl (0-1.1); BILIRUBIN,TOTAL 1.1 mg/dl (0.2-1.3); BLOOD UREA NITROGEN 58 mg/dl (7-20); CALCIUM 7.5 mg/dl (8.4-10.2); CARBON DIOXIDE 21 mmol/L (21-31); CHLORIDE 113 mmol/L (97-110); CREATININE 2.86 mg/dl (0.61-1.24); GLUCOSE 201 mg/dl (70-220); POTASSIUM 4.1 mmol/L (3.5-5.1); SODIUM 143 mmol/L (135-144); TOTAL PROTEIN 6.5 g/dl (6.1-8.1)
[2018-02-20] MEDS: ATORVASTATIN 10 MG TAB PO (20:45)
[2018-02-20] MEDS: ESCITALOPRAM 10 MG TAB PO (20:45)
[2018-02-20] MEDS: LACTULOSE 30ML CUP PO (20:46)
[2018-02-20] MEDS: INSULIN GLARGINE [LANtus] 3 ML PEN SC (20:52)
[2018-02-21] MEDS: HYDROCODONE/APAP (5/325) TAB PO ×3 (01:31→08:37)
[2018-02-21] MEDS: ALBUTEROL 0.083% (NEB) 2.5 MG/3 ML AMP HHN ×4 (02:00→20:00)
[2018-02-21] MEDS: ACCU-CHEK XX (02:00)
[2018-02-21] MEDS: PANTOPRAZOLE (EC) 40 MG TAB PO ×2 (05:29→18:34)
[2018-02-21 05:52] LABS: ADD MAN DIFF? NO
[2018-02-21 05:56] LABS: ABNORMAL IP MESSAGE 1; BASOPHILS % 0.2 % (0.0-2.0); EOSINOPHILS # 0.2 10^3/ul (0.0-0.5); EOSINOPHILS % 2.9 % (0.0-7.0); HEMATOCRIT 24.4 % (42.0-52.0); HEMOGLOBIN 7.7 g/dl (14.0-18.0); LYMPHOCYTES # 0.5 10^3/ul (0.8-2.9); MEAN CORPUSCULAR HEMOGLOBIN 29.7 pg (29.0-33.0); MEAN CORPUSCULAR HGB CONC 31.6 g/dl (32.0-37.0); MEAN CORPUSCULAR VOLUME 94.2 fl (82.0-101.0); MEAN PLATELET VOLUME 12.2 fl (7.4-10.4); MONOCYTE # 0.3 10^3/ul (0.3-0.9); MONOCYTES % 5.9 % (0.0-11.0); NEUTROPHIL # 4.5 10^3/ul (1.6-7.5); NEUTROPHILS % 81.6 % (39.0-77.0); PLATELET COUNT 89 10^3/UL (140-415); POSITIVE DIFF @See below; RED BLOOD COUNT 2.59 10^6/ul (4.70-6.10); RED CELL DISTRIBUTION WIDTH 17.2 % (11.5-14.5)
[2018-02-21 05:56] LABS: WHITE BLOOD COUNT 5.5 10^3/ul (4.8-10.8)
[2018-02-21 06:47] LABS: ANION GAP 9 (8-16); BLOOD UREA NITROGEN 65 mg/dl (7-20); CALCIUM 7.7 mg/dl (8.4-10.2); CARBON DIOXIDE 25 mmol/L (21-31); CHLORIDE 112 mmol/L (97-110); CREATININE 2.84 mg/dl (0.61-1.24); GLUCOSE 156 mg/dl (70-220); POTASSIUM 4.2 mmol/L (3.5-5.1); SODIUM 142 mmol/L (135-144)
[2018-02-21] MEDS: INSULIN ASPART [NOVOLOG] 3 ML PEN SC ×4 (08:15→21:00)
[2018-02-21] MEDS: PROPRANOLOL 10 MG TAB PO ×3 (08:18→20:58)
[2018-02-21] MEDS: METOLAZONE 2.5 MG TAB PO (08:18)
[2018-02-21] MEDS: HYDROCORTISONE 25 MG SUPP PR ×2 (08:20→20:58)
[2018-02-21] MEDS: FUROSEMIDE 40 MG TAB PO ×3 (08:27→18:34)
[2018-02-21] MEDS: PHYTONADIONE (1 MG/ML PO SYG) PO (12:09)
[2018-02-21] MEDS: CIPROFLOXACIN 400MG/D5W 200 ML IVPB (15:34)
[2018-02-21] MEDS: morphine 2 MG INJ IV (16:36)
[2018-02-21] MEDS: ESCITALOPRAM 10 MG TAB PO (20:57)
[2018-02-21] MEDS: ATORVASTATIN 10 MG TAB PO (20:57)
[2018-02-21] MEDS: LACTULOSE 30ML CUP PO (20:58)
[2018-02-21] MEDS: INSULIN GLARGINE [LANtus] 3 ML PEN SC (21:52)
[2018-02-22] MEDS: ACCU-CHEK XX (01:18)
[2018-02-22] MEDS: ALBUTEROL 0.083% (NEB) 2.5 MG/3 ML AMP HHN ×4 (01:37→20:00)
[2018-02-22] MEDS: PANTOPRAZOLE (EC) 40 MG TAB PO ×2 (05:20→17:33)
[2018-02-22] MEDS: INSULIN ASPART [NOVOLOG] 3 ML PEN SC ×4 (08:15→21:37)
[2018-02-22] MEDS: METOLAZONE 2.5 MG TAB PO (08:19)
[2018-02-22] MEDS: FUROSEMIDE 40 MG TAB PO ×3 (08:19→17:33)
[2018-02-22] MEDS: PROPRANOLOL 10 MG TAB PO ×3 (08:20→21:33)
[2018-02-22] MEDS: HYDROCORTISONE 25 MG SUPP PR ×2 (08:21→21:00)
[2018-02-22 11:27] LABS: ADD MAN DIFF? NO
[2018-02-22 11:30] LABS: WHITE BLOOD COUNT 6.6 10^3/ul (4.8-10.8)
[2018-02-22 11:30] LABS: ABNORMAL IP MESSAGE 1; BASOPHILS % 0.2 % (0.0-2.0); EOSINOPHILS # 0.2 10^3/ul (0.0-0.5); EOSINOPHILS % 2.4 % (0.0-7.0); HEMATOCRIT 24.7 % (42.0-52.0); HEMOGLOBIN 7.6 g/dl (14.0-18.0); LYMPHOCYTES # 0.5 10^3/ul (0.8-2.9); LYMPHOCYTES % 7.7 % (15.0-51.0); MEAN CORPUSCULAR HEMOGLOBIN 28.9 pg (29.0-33.0); MEAN CORPUSCULAR HGB CONC 30.8 g/dl (32.0-37.0); MEAN CORPUSCULAR VOLUME 93.9 fl (82.0-101.0); MONOCYTE # 0.4 10^3/ul (0.3-0.9); MONOCYTES % 6.5 % (0.0-11.0); NEUTROPHIL # 5.5 10^3/ul (1.6-7.5); NEUTROPHILS % 82.6 % (39.0-77.0); PLATELET COUNT 74 10^3/UL (140-415); POSITIVE DIFF @See below; RED BLOOD COUNT 2.63 10^6/ul (4.70-6.10); RED CELL DISTRIBUTION WIDTH 17.5 % (11.5-14.5)
[2018-02-22 11:47] LABS: ALANINE AMINOTRANSFERASE 18 IU/L (13-69); ALBUMIN 2.4 g/dl (3.3-4.9); ALBUMIN/GLOBULIN RATIO 0.58; ALKALINE PHOSPHATASE 126 IU/L (42-121); ANION GAP 13 (8-16); ASPARTATE AMINO TRANSFERASE 24 IU/L (15-46); BLOOD UREA NITROGEN 64 mg/dl (7-20); CALCIUM 7.7 mg/dl (8.4-10.2); CARBON DIOXIDE 23 mmol/L (21-31); CHLORIDE 107 mmol/L (97-110); CREATININE 3.15 mg/dl (0.61-1.24); GLUCOSE 172 mg/dl (70-220); PHOSPHORUS 4.4 mg/dl (2.5-4.9); POTASSIUM 3.9 mmol/L (3.5-5.1); SODIUM 139 mmol/L (135-144); TOTAL PROTEIN 6.5 g/dl (6.1-8.1)
[2018-02-22 11:47] LABS: MAGNESIUM 1.9 mg/dl (1.7-2.5)
[2018-02-22] MEDS: PHYTONADIONE (1 MG/ML PO SYG) PO (12:20)
[2018-02-22] MEDS ORDERED: IOHEXOL 14.3 MG(I)/ML (ADULT) BTL PO (14:00)
[2018-02-22] MEDS: CIPROFLOXACIN 400MG/D5W 200 ML IVPB (17:34)
[2018-02-22] MEDS ORDERED: VANCOMYCIN 1 GM (PMX) 250 ML IVPB (18:55)
[2018-02-22] MEDS ORDERED: VANCOMYCIN IV PER PHARMACY XX (18:55)
[2018-02-22] MEDS: LACTULOSE 30ML CUP PO (21:00)
[2018-02-22] MEDS: ESCITALOPRAM 10 MG TAB PO (21:33)
[2018-02-22] MEDS: ATORVASTATIN 10 MG TAB PO (21:33)
[2018-02-22] MEDS: VANCOMYCIN 2 GM in SOD CHLORIDE 0.9% 500 ML IVPB (21:34)
[2018-02-22] MEDS: INSULIN GLARGINE [LANtus] 3 ML PEN SC (21:36)
[2018-02-22] MEDS: HYDROCODONE/APAP (5/325) TAB PO (21:45)
[2018-02-23] MEDS: ALBUTEROL 0.083% (NEB) 2.5 MG/3 ML AMP HHN ×4 (01:14→20:00)
[2018-02-23] MEDS: morphine 2 MG INJ IV (01:24)
[2018-02-23] MEDS: ACCU-CHEK XX (02:00)
[2018-02-23] MEDS: PANTOPRAZOLE (EC) 40 MG TAB PO ×2 (05:23→17:22)
[2018-02-23 06:05] LABS: ADD MAN DIFF? NO
[2018-02-23 06:06] LABS: ABNORMAL IP MESSAGE 1; BASOPHILS % 0.2 % (0.0-2.0); EOSINOPHILS # 0.3 10^3/ul (0.0-0.5); EOSINOPHILS % 4.1 % (0.0-7.0); HEMATOCRIT 24.8 % (42.0-52.0); HEMOGLOBIN 7.5 g/dl (14.0-18.0); LYMPHOCYTES # 0.5 10^3/ul (0.8-2.9); LYMPHOCYTES % 8.2 % (15.0-51.0); MEAN CORPUSCULAR HGB CONC 30.2 g/dl (32.0-37.0); MEAN CORPUSCULAR VOLUME 95.8 fl (82.0-101.0); MONOCYTE # 0.5 10^3/ul (0.3-0.9); MONOCYTES % 8.8 % (0.0-11.0); NEUTROPHIL # 4.8 10^3/ul (1.6-7.5); NEUTROPHILS % 78.2 % (39.0-77.0); PLATELET COUNT 72 10^3/UL (140-415); POSITIVE DIFF @See below; RED BLOOD COUNT 2.59 10^6/ul (4.70-6.10); RED CELL DISTRIBUTION WIDTH 17.2 % (11.5-14.5)
[2018-02-23 06:06] LABS: WHITE BLOOD COUNT 6.1 10^3/ul (4.8-10.8)
[2018-02-23 06:41] LABS: ANION GAP 9 (8-16); BLOOD UREA NITROGEN 69 mg/dl (7-20); CALCIUM 7.5 mg/dl (8.4-10.2); CARBON DIOXIDE 27 mmol/L (21-31); CHLORIDE 108 mmol/L (97-110); CREATININE 3.26 mg/dl (0.61-1.24); GLUCOSE 187 mg/dl (70-220); POTASSIUM 3.8 mmol/L (3.5-5.1); SODIUM 140 mmol/L (135-144)
[2018-02-23] MEDS: PROPRANOLOL 10 MG TAB PO ×3 (08:08→20:48)
[2018-02-23] MEDS: FUROSEMIDE 40 MG TAB PO ×3 (08:08→17:22)
[2018-02-23] MEDS: HYDROCORTISONE 25 MG SUPP PR ×2 (08:08→21:00)
[2018-02-23] MEDS: METOLAZONE 2.5 MG TAB PO (08:09)
[2018-02-23] MEDS: INSULIN ASPART [NOVOLOG] 3 ML PEN SC ×4 (08:13→20:51)
[2018-02-23] MEDS: PHYTONADIONE (1 MG/ML PO SYG) PO (08:47)
[2018-02-23] MEDS: CIPROFLOXACIN 400MG/D5W 200 ML IVPB (14:56)
[2018-02-23] MEDS: ATORVASTATIN 10 MG TAB PO (20:47)
[2018-02-23] MEDS: ESCITALOPRAM 10 MG TAB PO (20:47)
[2018-02-23] MEDS: INSULIN GLARGINE [LANtus] 3 ML PEN SC (20:51)
[2018-02-23] MEDS: LACTULOSE 30ML CUP PO (21:00)
[2018-02-24] MEDS: ALBUTEROL 0.083% (NEB) 2.5 MG/3 ML AMP HHN ×4 (01:50→20:00)
[2018-02-24] MEDS: ACCU-CHEK XX (02:49)
[2018-02-24] MEDS: PANTOPRAZOLE (EC) 40 MG TAB PO ×2 (05:22→16:58)
[2018-02-24 05:46] LABS: ADD MAN DIFF? NO
[2018-02-24 05:48] LABS: ABNORMAL IP MESSAGE 1; BASOPHILS % 0.5 % (0.0-2.0); EOSINOPHILS # 0.3 10^3/ul (0.0-0.5); EOSINOPHILS % 6.1 % (0.0-7.0); HEMATOCRIT 24.9 % (42.0-52.0); HEMOGLOBIN 7.5 g/dl (14.0-18.0); LYMPHOCYTES # 0.4 10^3/ul (0.8-2.9); MEAN CORPUSCULAR HEMOGLOBIN 28.5 pg (29.0-33.0); MEAN CORPUSCULAR HGB CONC 30.1 g/dl (32.0-37.0); MEAN CORPUSCULAR VOLUME 94.7 fl (82.0-101.0); MEAN PLATELET VOLUME 11.5 fl (7.4-10.4); MONOCYTE # 0.4 10^3/ul (0.3-0.9); MONOCYTES % 7.9 % (0.0-11.0); NEUTROPHIL # 3.4 10^3/ul (1.6-7.5); PLATELET COUNT 75 10^3/UL (140-415); POSITIVE DIFF @See below; RED BLOOD COUNT 2.63 10^6/ul (4.70-6.10); RED CELL DISTRIBUTION WIDTH 17.1 % (11.5-14.5)
[2018-02-24 05:48] LABS: WHITE BLOOD COUNT 4.4 10^3/ul (4.8-10.8)
[2018-02-24 06:22] LABS: ALANINE AMINOTRANSFERASE 22 IU/L (13-69); ALBUMIN 2.3 g/dl (3.3-4.9); ALBUMIN/GLOBULIN RATIO 0.58; ALKALINE PHOSPHATASE 131 IU/L (42-121); ANION GAP 7 (8-16); ASPARTATE AMINO TRANSFERASE 26 IU/L (15-46); BILIRUBIN,INDIRECT 0.6 mg/dl (0-1.1); BILIRUBIN,TOTAL 0.6 mg/dl (0.2-1.3); BLOOD UREA NITROGEN 71 mg/dl (7-20); CALCIUM 7.6 mg/dl (8.4-10.2); CARBON DIOXIDE 24 mmol/L (21-31); CHLORIDE 108 mmol/L (97-110); CREATININE 3.42 mg/dl (0.61-1.24); GLUCOSE 153 mg/dl (70-220); PHOSPHORUS 4.8 mg/dl (2.5-4.9); POTASSIUM 3.8 mmol/L (3.5-5.1); SODIUM 135 mmol/L (135-144); TOTAL PROTEIN 6.2 g/dl (6.1-8.1)
[2018-02-24 06:34] LABS: VANCOMYCIN,RANDOM 14.8 ug/ml
[2018-02-24] MEDS: HYDROCORTISONE 25 MG SUPP PR ×2 (07:46→20:44)
[2018-02-24] MEDS: FUROSEMIDE 40 MG TAB PO ×3 (07:47→16:59)
[2018-02-24] MEDS: METOLAZONE 2.5 MG TAB PO (07:47)
[2018-02-24] MEDS: PROPRANOLOL 10 MG TAB PO ×3 (07:47→21:00)
[2018-02-24] MEDS: INSULIN ASPART [NOVOLOG] 3 ML PEN SC ×4 (07:50→20:49)
[2018-02-24] MEDS: PHYTONADIONE (1 MG/ML PO SYG) PO (07:53)
[2018-02-24] MEDS: CIPROFLOXACIN 400MG/D5W 200 ML IVPB (14:15)
[2018-02-24] MEDS ORDERED: morphine LIQ (10 MG/5 ML) CUP PO (15:00)
[2018-02-24] MEDS: EPOETIN ALFA (NESRD) 3,000 UNITS/ML VIAL SC (17:01)
[2018-02-24] MEDS: VANCOMYCIN 1.5 GM in SOD CHLORIDE 0.9% 250 ML IVPB (17:25)
[2018-02-24] MEDS: ESCITALOPRAM 10 MG TAB PO (20:44)
[2018-02-24] MEDS: ATORVASTATIN 10 MG TAB PO (20:44)
[2018-02-24] MEDS: INSULIN GLARGINE [LANtus] 3 ML PEN SC (20:49)
[2018-02-24] MEDS: LACTULOSE 30ML CUP PO (21:00)
[2018-02-25] MEDS: ALBUTEROL 0.083% (NEB) 2.5 MG/3 ML AMP HHN ×4 (02:00→19:54)
[2018-02-25] MEDS: LORAZEPAM 0.5 MG TAB PO (02:12)
[2018-02-25] MEDS: ACCU-CHEK XX (02:13)
[2018-02-25] MEDS: PANTOPRAZOLE (EC) 40 MG TAB PO ×2 (05:56→17:32)
[2018-02-25 06:09] LABS: ADD MAN DIFF? NO
[2018-02-25 06:23] LABS: WHITE BLOOD COUNT 3.2 10^3/ul (4.8-10.8)
[2018-02-25 06:23] LABS: ABNORMAL IP MESSAGE 1; BASOPHILS % 0.6 % (0.0-2.0); EOSINOPHILS # 0.3 10^3/ul (0.0-0.5); HEMATOCRIT 23.1 % (42.0-52.0); HEMOGLOBIN 7.2 g/dl (14.0-18.0); LYMPHOCYTES # 0.4 10^3/ul (0.8-2.9); MEAN CORPUSCULAR HEMOGLOBIN 28.7 pg (29.0-33.0); MEAN CORPUSCULAR HGB CONC 31.2 g/dl (32.0-37.0); MEAN PLATELET VOLUME 11.9 fl (7.4-10.4); MONOCYTE # 0.3 10^3/ul (0.3-0.9); MONOCYTES % 9.9 % (0.0-11.0); NEUTROPHIL # 2.2 10^3/ul (1.6-7.5); NEUTROPHILS % 68.2 % (39.0-77.0); PLATELET COUNT 72 10^3/UL (140-415); POSITIVE DIFF @See below; RED BLOOD COUNT 2.51 10^6/ul (4.70-6.10); RED CELL DISTRIBUTION WIDTH 16.5 % (11.5-14.5)
[2018-02-25 06:31] LABS: ANION GAP 9 (8-16); BLOOD UREA NITROGEN 70 mg/dl (7-20); CALCIUM 7.5 mg/dl (8.4-10.2); CARBON DIOXIDE 24 mmol/L (21-31); CHLORIDE 106 mmol/L (97-110); CREATININE 3.61 mg/dl (0.61-1.24); GLUCOSE 196 mg/dl (70-220); POTASSIUM 3.7 mmol/L (3.5-5.1); SODIUM 135 mmol/L (135-144)
[2018-02-25] MEDS: INSULIN ASPART [NOVOLOG] 3 ML PEN SC ×4 (08:04→21:08)
[2018-02-25] MEDS: HYDROCORTISONE 25 MG SUPP PR ×2 (08:09→21:00)
[2018-02-25] MEDS: PROPRANOLOL 10 MG TAB PO ×4 (08:09→21:03)
[2018-02-25] MEDS: METOLAZONE 2.5 MG TAB PO (08:09)
[2018-02-25] MEDS: PHYTONADIONE (1 MG/ML PO SYG) PO (08:10)
[2018-02-25] MEDS: FUROSEMIDE 40 MG TAB PO ×3 (08:10→17:32)
[2018-02-25] MEDS: CIPROFLOXACIN 400MG/D5W 200 ML IVPB (14:11)
[2018-02-25] MEDS: LACTULOSE 30ML CUP PO (21:00)
[2018-02-25] MEDS: ATORVASTATIN 10 MG TAB PO (21:02)
[2018-02-25] MEDS: ESCITALOPRAM 10 MG TAB PO (21:02)
[2018-02-25] MEDS: INSULIN GLARGINE [LANtus] 3 ML PEN SC (21:09)
[2018-02-26] MEDS: ALBUTEROL 0.083% (NEB) 2.5 MG/3 ML AMP HHN ×4 (02:00→20:00)
[2018-02-26] MEDS: ACCU-CHEK XX (02:00)
[2018-02-26] MEDS: PANTOPRAZOLE (EC) 40 MG TAB PO ×2 (05:30→17:36)
[2018-02-26 06:24] LABS: ADD MAN DIFF? NO
[2018-02-26 06:36] LABS: ABNORMAL IP MESSAGE 1; BASOPHILS % 0.7 % (0.0-2.0); EOSINOPHILS # 0.3 10^3/ul (0.0-0.5); EOSINOPHILS % 9.7 % (0.0-7.0); HEMATOCRIT 22.3 % (42.0-52.0); LYMPHOCYTES # 0.4 10^3/ul (0.8-2.9); LYMPHOCYTES % 12.5 % (15.0-51.0); MEAN CORPUSCULAR HEMOGLOBIN 28.5 pg (29.0-33.0); MEAN CORPUSCULAR HGB CONC 30.9 g/dl (32.0-37.0); MEAN CORPUSCULAR VOLUME 92.1 fl (82.0-101.0); MEAN PLATELET VOLUME 12.7 fl (7.4-10.4); MONOCYTE # 0.4 10^3/ul (0.3-0.9); MONOCYTES % 12.5 % (0.0-11.0); NEUTROPHIL # 1.8 10^3/ul (1.6-7.5); NEUTROPHILS % 64.2 % (39.0-77.0); PLATELET COUNT 76 10^3/UL (140-415); POSITIVE DIFF @See below; RED BLOOD COUNT 2.42 10^6/ul (4.70-6.10); RED CELL DISTRIBUTION WIDTH 16.3 % (11.5-14.5)
[2018-02-26 06:36] LABS: WHITE BLOOD COUNT 2.8 10^3/ul (4.8-10.8)
[2018-02-26 07:10] LABS: HEMOGLOBIN 6.9 g/dl (14.0-18.0); PATH REVIEW? YES
[2018-02-26 07:15] LABS: ANION GAP 6 (8-16); BLOOD UREA NITROGEN 73 mg/dl (7-20); CALCIUM 7.6 mg/dl (8.4-10.2); CARBON DIOXIDE 25 mmol/L (21-31); CHLORIDE 106 mmol/L (97-110); CREATININE 3.24 mg/dl (0.61-1.24); GLUCOSE 236 mg/dl (70-220); POTASSIUM 3.6 mmol/L (3.5-5.1); SODIUM 133 mmol/L (135-144)
[2018-02-26] MEDS: INSULIN ASPART [NOVOLOG] 3 ML PEN SC ×4 (08:07→20:46)
[2018-02-26] MEDS: PROPRANOLOL 10 MG TAB PO ×3 (08:08→20:47)
[2018-02-26] MEDS: HYDROCORTISONE 25 MG SUPP PR ×2 (08:08→20:46)
[2018-02-26] MEDS: FUROSEMIDE 40 MG TAB PO ×3 (08:08→17:00)
[2018-02-26] MEDS: METOLAZONE 2.5 MG TAB PO (08:09)
[2018-02-26] MEDS: PHYTONADIONE (1 MG/ML PO SYG) PO ×2 (09:00→15:25)
[2018-02-26] MEDS: CIPROFLOXACIN 400MG/D5W 200 ML IVPB (15:24)
[2018-02-26] MEDS ORDERED: EPOETIN 4000 UNITS/ML (NON ESRD/NON ONCOLOGY) SC (17:00)
[2018-02-26] MEDS: ESCITALOPRAM 10 MG TAB PO (20:40)
[2018-02-26] MEDS: ATORVASTATIN 10 MG TAB PO (20:40)
[2018-02-26] MEDS: INSULIN GLARGINE [LANtus] 3 ML PEN SC (20:45)
[2018-02-26] MEDS: LACTULOSE 30ML CUP PO (20:47)
[2018-02-26] MEDS ORDERED: NITROGLYCERIN (SL) 0.4 MG TAB (21:36)
[2018-02-26] MEDS: NITROGLYCERIN (SL) 0.4 MG TAB SL (21:40)
[2018-02-26] MEDS ORDERED: morphine 2 MG INJ (21:45)
[2018-02-26] MEDS: morphine 2 MG INJ IV (21:46)
[2018-02-26 22:11] LABS: ADD MAN DIFF? NO; HAAIG REFLEX REFLEX FILED
[2018-02-26 22:13] LABS: ABNORMAL IP MESSAGE 1; BASOPHILS % 0.7 % (0.0-2.0); EOSINOPHILS # 0.2 10^3/ul (0.0-0.5); EOSINOPHILS % 5.6 % (0.0-7.0); HEMOGLOBIN 7.6 g/dl (14.0-18.0); LYMPHOCYTES # 0.4 10^3/ul (0.8-2.9); LYMPHOCYTES % 14.6 % (15.0-51.0); MEAN CORPUSCULAR HEMOGLOBIN 28.8 pg (29.0-33.0); MEAN CORPUSCULAR HGB CONC 31.7 g/dl (32.0-37.0); MEAN CORPUSCULAR VOLUME 90.9 fl (82.0-101.0); MONOCYTE # 0.1 10^3/ul (0.3-0.9); MONOCYTES % 5.2 % (0.0-11.0); NEUTROPHILS % 72.8 % (39.0-77.0); PLATELET COUNT 70 10^3/UL (140-415); POSITIVE DIFF @See below; RED BLOOD COUNT 2.64 10^6/ul (4.70-6.10); RED CELL DISTRIBUTION WIDTH 16.6 % (11.5-14.5)
[2018-02-26 22:13] LABS: WHITE BLOOD COUNT 2.7 10^3/ul (4.8-10.8)
[2018-02-26 22:33] LABS: ALANINE AMINOTRANSFERASE 24 IU/L (13-69); ALBUMIN/GLOBULIN RATIO 0.57; ALKALINE PHOSPHATASE 155 IU/L (42-121); ANION GAP 6 (8-16); ASPARTATE AMINO TRANSFERASE 23 IU/L (15-46); BILIRUBIN,INDIRECT 0.7 mg/dl (0-1.1); BILIRUBIN,TOTAL 0.7 mg/dl (0.2-1.3); BLOOD UREA NITROGEN 65 mg/dl (7-20); CALCIUM 7.1 mg/dl (8.4-10.2); CARBON DIOXIDE 26 mmol/L (21-31); CHLORIDE 106 mmol/L (97-110); CREATININE 2.84 mg/dl (0.61-1.24); GLUCOSE 229 mg/dl (70-220); POTASSIUM 3.3 mmol/L (3.5-5.1); SODIUM 135 mmol/L (135-144); TOTAL PROTEIN 5.5 g/dl (6.1-8.1)
[2018-02-26 22:44] LABS: CREATINE KINASE 51 IU/L (23-200)
[2018-02-26 22:56] LABS: CK-MB 1.54 ng/ml (0.0-2.4); TROPONIN-I 0.018 ng/ml (0.000-0.120)
[2018-02-26 23:04] LABS: HEPATITIS B SURFACE ANTIGEN NEGATIVE (NEGATIVE)
[2018-02-26 23:22] LABS: HEPATITIS B CORE ANTIBODY NEGATIVE (NEGATIVE)
[2018-02-26 23:28] LABS: HEPATITIS C VIRAL ANTIBODY REACTIVE (NEGATIVE)
[2018-02-27] MEDS: ALBUTEROL 0.083% (NEB) 2.5 MG/3 ML AMP HHN ×4 (01:24→20:00)
[2018-02-27] MEDS: ACCU-CHEK XX (01:31)
[2018-02-27] MEDS: PANTOPRAZOLE (EC) 40 MG TAB PO ×2 (05:41→17:16)
[2018-02-27 06:55] LABS: ADD MAN DIFF? NO
[2018-02-27 06:58] LABS: WHITE BLOOD COUNT 3.7 10^3/ul (4.8-10.8)
[2018-02-27 06:58] LABS: ABNORMAL IP MESSAGE 1; BASOPHILS % 0.5 % (0.0-2.0); EOSINOPHILS # 0.3 10^3/ul (0.0-0.5); EOSINOPHILS % 8.1 % (0.0-7.0); HEMATOCRIT 24.8 % (42.0-52.0); HEMOGLOBIN 7.8 g/dl (14.0-18.0); LYMPHOCYTES # 0.5 10^3/ul (0.8-2.9); LYMPHOCYTES % 13.3 % (15.0-51.0); MEAN CORPUSCULAR HEMOGLOBIN 28.9 pg (29.0-33.0); MEAN CORPUSCULAR HGB CONC 31.5 g/dl (32.0-37.0); MEAN CORPUSCULAR VOLUME 91.9 fl (82.0-101.0); MEAN PLATELET VOLUME 11.6 fl (7.4-10.4); MONOCYTE # 0.4 10^3/ul (0.3-0.9); MONOCYTES % 10.3 % (0.0-11.0); NEUTROPHIL # 2.5 10^3/ul (1.6-7.5); NEUTROPHILS % 67.3 % (39.0-77.0); PLATELET COUNT 69 10^3/UL (140-415); POSITIVE DIFF @See below; RED CELL DISTRIBUTION WIDTH 16.8 % (11.5-14.5)
[2018-02-27 06:59] LABS: ALANINE AMINOTRANSFERASE 25 IU/L (13-69); ALBUMIN 2.4 g/dl (3.3-4.9); ALKALINE PHOSPHATASE 159 IU/L (42-121); ANION GAP 9 (8-16); ASPARTATE AMINO TRANSFERASE 30 IU/L (15-46); BILIRUBIN,INDIRECT 0.8 mg/dl (0-1.1); BILIRUBIN,TOTAL 0.8 mg/dl (0.2-1.3); BLOOD UREA NITROGEN 66 mg/dl (7-20); CALCIUM 7.6 mg/dl (8.4-10.2); CARBON DIOXIDE 26 mmol/L (21-31); CHLORIDE 105 mmol/L (97-110); CREATININE 3.07 mg/dl (0.61-1.24); GLUCOSE 169 mg/dl (70-220); POTASSIUM 3.5 mmol/L (3.5-5.1); SODIUM 136 mmol/L (135-144); TOTAL PROTEIN 6.4 g/dl (6.1-8.1)
[2018-02-27 07:00] LABS: TROPONIN-I 0.037 ng/ml (0.000-0.120)
[2018-02-27 07:01] LABS: CK INDEX 3.3; CREATINE KINASE 51 IU/L (23-200)
[2018-02-27 07:09] LABS: CK-MB 1.67 ng/ml (0.0-2.4)
[2018-02-27] MEDS: METOLAZONE 2.5 MG TAB PO (08:07)
[2018-02-27] MEDS: PROPRANOLOL 10 MG TAB PO ×3 (08:07→21:53)
[2018-02-27] MEDS: INSULIN ASPART [NOVOLOG] 3 ML PEN SC ×4 (08:11→22:11)
[2018-02-27] MEDS: FUROSEMIDE 40 MG TAB PO ×2 (08:35→17:16)
[2018-02-27] MEDS: HYDROCORTISONE 25 MG SUPP PR ×3 (08:35→21:53)
[2018-02-27] MEDS: PHYTONADIONE (1 MG/ML PO SYG) PO (10:03)
[2018-02-27] MEDS: POTASSIUM CHLORIDE (SR) 10 MEQ TAB PO (11:14)
[2018-02-27] MEDS ORDERED: METOLAZONE 2.5 MG TAB PO (11:30)
[2018-02-27] MEDS: CIPROFLOXACIN 400MG/D5W 200 ML IVPB (15:03)
[2018-02-27] MEDS: EPOETIN ALFA (NESRD) 3,000 UNITS/ML VIAL SC (17:25)
[2018-02-27] MEDS: LACTULOSE 30ML CUP PO ×2 (21:00→21:52)
[2018-02-27] MEDS: ATORVASTATIN 10 MG TAB PO (21:52)
[2018-02-27] MEDS: ESCITALOPRAM 10 MG TAB PO (21:52)
[2018-02-27] MEDS: INSULIN GLARGINE [LANtus] 3 ML PEN SC (22:11)
[2018-02-28] MEDS: ALBUTEROL 0.083% (NEB) 2.5 MG/3 ML AMP HHN ×4 (02:00→20:00)
[2018-02-28] MEDS: ACCU-CHEK XX (02:46)
[2018-02-28] MEDS: FUROSEMIDE 40 MG TAB PO ×2 (05:29→18:04)
[2018-02-28] MEDS: PANTOPRAZOLE (EC) 40 MG TAB PO ×2 (05:29→18:04)
[2018-02-28 07:16] LABS: ADD MAN DIFF? NO
[2018-02-28 07:18] LABS: RETICULOCYTE COUNT % 3.4 % (0.5-1.5)
[2018-02-28 07:18] LABS: RETICULOCYTE RBC 2.38
[2018-02-28 07:20] LABS: WHITE BLOOD COUNT 4.2 10^3/ul (4.8-10.8)
[2018-02-28 07:20] LABS: ABNORMAL IP MESSAGE 1; BASOPHILS % 0.5 % (0.0-2.0); EOSINOPHILS # 0.3 10^3/ul (0.0-0.5); EOSINOPHILS % 7.7 % (0.0-7.0); HEMATOCRIT 21.9 % (42.0-52.0); LYMPHOCYTES # 0.5 10^3/ul (0.8-2.9); MEAN CORPUSCULAR HEMOGLOBIN 27.9 pg (29.0-33.0); MEAN CORPUSCULAR HGB CONC 30.6 g/dl (32.0-37.0); MEAN CORPUSCULAR VOLUME 91.3 fl (82.0-101.0); MEAN PLATELET VOLUME 11.7 fl (7.4-10.4); MONOCYTE # 0.3 10^3/ul (0.3-0.9); MONOCYTES % 7.7 % (0.0-11.0); NEUTROPHILS % 71.6 % (39.0-77.0); PLATELET COUNT 74 10^3/UL (140-415); POSITIVE DIFF @See below; RED CELL DISTRIBUTION WIDTH 16.9 % (11.5-14.5)
[2018-02-28 07:27] LABS: HEMOGLOBIN 6.7 g/dl (14.0-18.0)
[2018-02-28 07:44] LABS: ALANINE AMINOTRANSFERASE 18 IU/L (13-69); ALBUMIN 2.3 g/dl (3.3-4.9); ALKALINE PHOSPHATASE 160 IU/L (42-121); ANION GAP 8 (8-16); ASPARTATE AMINO TRANSFERASE 29 IU/L (15-46); BILIRUBIN,INDIRECT 0.7 mg/dl (0-1.1); BILIRUBIN,TOTAL 0.7 mg/dl (0.2-1.3); BLOOD UREA NITROGEN 67 mg/dl (7-20); CALCIUM 7.5 mg/dl (8.4-10.2); CARBON DIOXIDE 28 mmol/L (21-31); CHLORIDE 104 mmol/L (97-110); GLUCOSE 201 mg/dl (70-220); POTASSIUM 3.9 mmol/L (3.5-5.1); SODIUM 136 mmol/L (135-144); TOTAL PROTEIN 6.1 g/dl (6.1-8.1)
[2018-02-28] MEDS: SOD CHLORIDE 0.9% 250 ML IV* (07:59)
[2018-02-28] MEDS: PHYTONADIONE (1 MG/ML PO SYG) PO (08:31)
[2018-02-28] MEDS: HYDROCORTISONE 25 MG SUPP PR (08:31)
[2018-02-28] MEDS: METOLAZONE 2.5 MG TAB PO (08:31)
[2018-02-28] MEDS: PROPRANOLOL 10 MG TAB PO ×3 (08:32→20:26)
[2018-02-28] MEDS: INSULIN ASPART [NOVOLOG] 3 ML PEN SC ×4 (08:37→20:32)
[2018-02-28 09:15] LABS: FERRITIN 52.1 ng/ml (11.1-264.0)
[2018-02-28 09:45] LABS: FOLATE 6.3 ng/ml (2.8-20.0)
[2018-02-28] MEDS: CIPROFLOXACIN 400MG/D5W 200 ML IVPB (13:54)
[2018-02-28 16:09] LABS: HEMATOCRIT 24.3 % (42.0-52.0); HEMOGLOBIN 7.8 g/dl (14.0-18.0)
[2018-02-28 17:00] LABS: OCCULT BLOOD STOOL POSITIVE (NEGATIVE)
[2018-02-28 18:55] LABS: OCCULT BLOOD STOOL POSITIVE (NEGATIVE)
[2018-02-28] MEDS: INSULIN GLARGINE [LANtus] 3 ML PEN SC (20:22)
[2018-02-28] MEDS: ESCITALOPRAM 10 MG TAB PO (20:24)
[2018-02-28] MEDS: ATORVASTATIN 10 MG TAB PO (20:24)
[2018-02-28] MEDS: LACTULOSE 30ML CUP PO (20:24)
[2018-02-28 21:57] LABS: IMMEDIATE SPIN CROSSMATCH 1 8
[2018-03-01] MEDS: ZOLPIDEM 5 MG TAB PO (00:23)
[2018-03-01] MEDS: HYDROCODONE/APAP (5/325) TAB PO (00:23)
[2018-03-01] MEDS: ACCU-CHEK XX (02:00)
[2018-03-01] MEDS: ALBUTEROL 0.083% (NEB) 2.5 MG/3 ML AMP HHN ×3 (02:00→19:22)
[2018-03-01] MEDS: PANTOPRAZOLE (EC) 40 MG TAB PO (05:57)
[2018-03-01] MEDS: FUROSEMIDE 40 MG TAB PO (05:57)
[2018-03-01 07:51] LABS: ADD MAN DIFF? NO
[2018-03-01] MEDS: INSULIN ASPART [NOVOLOG] 3 ML PEN SC ×4 (07:55→20:32)
[2018-03-01 08:00] LABS: ABNORMAL IP MESSAGE 1; BASOPHILS % 0.9 % (0.0-2.0); EOSINOPHILS # 0.3 10^3/ul (0.0-0.5); EOSINOPHILS % 7.4 % (0.0-7.0); HEMATOCRIT 24.1 % (42.0-52.0); HEMOGLOBIN 7.6 g/dl (14.0-18.0); LYMPHOCYTES # 0.5 10^3/ul (0.8-2.9); LYMPHOCYTES % 12.6 % (15.0-51.0); MEAN CORPUSCULAR HEMOGLOBIN 28.8 pg (29.0-33.0); MEAN CORPUSCULAR HGB CONC 31.5 g/dl (32.0-37.0); MEAN CORPUSCULAR VOLUME 91.3 fl (82.0-101.0); MEAN PLATELET VOLUME 11.2 fl (7.4-10.4); MONOCYTE # 0.4 10^3/ul (0.3-0.9); MONOCYTES % 9.3 % (0.0-11.0); NEUTROPHILS % 68.9 % (39.0-77.0); PLATELET COUNT 58 10^3/UL (140-415); POSITIVE DIFF @See below; RED BLOOD COUNT 2.64 10^6/ul (4.70-6.10); RED CELL DISTRIBUTION WIDTH 17.7 % (11.5-14.5)
[2018-03-01 08:00] LABS: WHITE BLOOD COUNT 4.3 10^3/ul (4.8-10.8)
[2018-03-01 08:15] LABS: INR 1.25; PROTIME 15.9 Sec (11.9-14.9); PT RATIO 1.2
[2018-03-01 08:21] LABS: ALANINE AMINOTRANSFERASE 26 IU/L (13-69); ALBUMIN 2.3 g/dl (3.3-4.9); ALBUMIN/GLOBULIN RATIO 0.63; ALKALINE PHOSPHATASE 168 IU/L (42-121); ANION GAP 8 (8-16); ASPARTATE AMINO TRANSFERASE 32 IU/L (15-46); BILIRUBIN,INDIRECT 0.8 mg/dl (0-1.1); BILIRUBIN,TOTAL 0.8 mg/dl (0.2-1.3); BLOOD UREA NITROGEN 77 mg/dl (7-20); CALCIUM 7.7 mg/dl (8.4-10.2); CARBON DIOXIDE 27 mmol/L (21-31); CHLORIDE 108 mmol/L (97-110); GLUCOSE 160 mg/dl (70-220); POTASSIUM 3.9 mmol/L (3.5-5.1); SODIUM 139 mmol/L (135-144); TOTAL PROTEIN 5.9 g/dl (6.1-8.1)
[2018-03-01] MEDS: METOLAZONE 2.5 MG TAB PO (09:00)
[2018-03-01] MEDS: PROPRANOLOL 10 MG TAB PO ×3 (09:00→20:33)
[2018-03-01] MEDS: PHYTONADIONE (1 MG/ML PO SYG) PO (09:00)
[2018-03-01] MEDS: LIDOCAINE 2% (SDV) 5 ML INJ (11:34)
[2018-03-01] MEDS: PROPOFOL 60 ML (11:34)
[2018-03-01] MEDS: GLUCAGON 1 MG INJ (11:48)
[2018-03-01] MEDS ORDERED: hydrALAzine 20 MG INJ (12:55)
[2018-03-01] MEDS: hydrALAzine 20 MG INJ IV (13:42)
[2018-03-01] MEDS: FUROSEMIDE 40 MG INJ IV ×3 (13:55→15:45)
[2018-03-01 14:20] LABS: AADO2 Arterial 105.8 mmHg (7.0-24.0); Allen Test ACCEPTAB; Arterial Base Excess 0 mmol/L (-3.0-3); Arterial Blood Gas Oxygen Sat 90.6 mmHG (95.0-98.0); Arterial COHb 0.7 % (0.0-3.0); Arterial Fraction of Oxyhgb 89.7 % (93.0-99.0); Arterial HCO3 24.9 mmol/L (22.0-26.0); Arterial MetHb 0.3 % (0.0-1.5); Arterial Total Hemglobin 9.7 g/dl (12.0-18.0); Arterial pCO2 41.8 mmhg (35-45); MODE NASAL CANNULA; Site Left Radial
[2018-03-01] MEDS: CIPROFLOXACIN 400MG/D5W 200 ML IVPB (14:30)
[2018-03-01] MEDS: DESMOPRESSIN 20 MCG in SOD CHLORIDE 0.9% 50 ML IVPB (14:35)
[2018-03-01] MEDS: NITROGLYCERIN (SL) 0.4 MG TAB SL (14:36)
[2018-03-01] MEDS: FUROSEMIDE 20 MG TAB PO (15:30)
[2018-03-01] MEDS ORDERED: FUROSEMIDE 10 ML (15:38)
[2018-03-01] MEDS ORDERED: morphine 2 MG INJ (16:11)
[2018-03-01] MEDS ORDERED: hydrALAzine 20 MG INJ IV (17:00)
[2018-03-01] MEDS: ALBUMIN HUMAN 25% 100 ML IV (17:45)
[2018-03-01 17:52] LABS: WHITE BLOOD COUNT 6.4 10^3/ul (4.8-10.8)
[2018-03-01 17:52] LABS: ABNORMAL IP MESSAGE 1; HEMATOCRIT 28.3 % (42.0-52.0); MEAN CORPUSCULAR HEMOGLOBIN 28.9 pg (29.0-33.0); MEAN CORPUSCULAR HGB CONC 31.8 g/dl (32.0-37.0); MEAN PLATELET VOLUME 10.4 fl (7.4-10.4); PLATELET COUNT 75 10^3/UL (140-415); POSITIVE DIFF @See below; RED BLOOD COUNT 3.11 10^6/ul (4.70-6.10); RED CELL DISTRIBUTION WIDTH 18.1 % (11.5-14.5)
[2018-03-01 17:54] LABS: ADD MAN DIFF? YES
[2018-03-01] MEDS: morphine 2 MG INJ IV (18:13)
[2018-03-01 18:34] LABS: ANION GAP 11 (8-16); BLOOD UREA NITROGEN 69 mg/dl (7-20); CALCIUM 7.5 mg/dl (8.4-10.2); CARBON DIOXIDE 25 mmol/L (21-31); CHLORIDE 106 mmol/L (97-110); CREATININE 2.75 mg/dl (0.61-1.24); GLUCOSE 115 mg/dl (70-220); POTASSIUM 3.8 mmol/L (3.5-5.1); SODIUM 138 mmol/L (135-144)
[2018-03-01 18:54] LABS: ANISOCYTOSIS 1+ (0-0); BAND NEUTROPHILS #M 2.3 10^3/ul (0.0-0.6); BAND NEUTROPHILS % (M) 37 % (0-4); BASOPHILS % (M) 1 % (0-2); EOSINOPHILS % (M) 1 % (0-7); ERYTHROBLAST% (NRBC) (M) 1 % (0-0); LYMPHOCYTES #M 0.3 10^3/ul (0.8-2.9); LYMPHOCYTES % (M) 5 % (15-51); PLATELET ESTIMATE DECREASED; POIKILOCYTOSIS 1+ (0-0); POLYCHROMASIA 3+ (0-0); SEG NEUT #M 3.7 10^3/ul (1.6-7.5); SEGMENTED NEUTROPHILS (M) % 56 % (39-77); SMUDGE%M 1 % (0-0)
[2018-03-01] MEDS: NORepinephrine 8MG/250 ML (PMX 250 ML IV (19:03)
[2018-03-01 19:54] LABS: TROPONIN-I 0.031 ng/ml (0.000-0.120)
[2018-03-01] MEDS: INSULIN GLARGINE [LANtus] 3 ML PEN SC (20:00)
[2018-03-01] MEDS: LACTULOSE 30ML CUP PO (20:32)
[2018-03-01] MEDS: ESCITALOPRAM 10 MG TAB PO (20:33)
[2018-03-01] MEDS: ATORVASTATIN 10 MG TAB PO (20:33)
[2018-03-01] MEDS: DESMOPRESSIN IVPB (20:36)
[2018-03-01] MEDS: SOD CHLORIDE 0.9% IVPB (20:36)
[2018-03-01] MEDS: EPOETIN ALFA (NESRD) 3,000 UNITS/ML VIAL SC (21:26)
[2018-03-02] MEDS: ALBUTEROL 0.083% (NEB) 2.5 MG/3 ML AMP HHN ×4 (01:22→20:12)
[2018-03-02] MEDS: morphine 2 MG INJ IV ×2 (01:50→06:51)
[2018-03-02] MEDS: ACCU-CHEK XX (02:00)
[2018-03-02 05:07] LABS: ABNORMAL IP MESSAGE 1; HEMATOCRIT 23.6 % (42.0-52.0); HEMOGLOBIN 7.3 g/dl (14.0-18.0); MEAN CORPUSCULAR HEMOGLOBIN 28.4 pg (29.0-33.0); MEAN CORPUSCULAR HGB CONC 30.9 g/dl (32.0-37.0); MEAN CORPUSCULAR VOLUME 91.8 fl (82.0-101.0); MEAN PLATELET VOLUME 12.7 fl (7.4-10.4); PLATELET COUNT 39 10^3/UL (140-415); POSITIVE DIFF @See below; RED BLOOD COUNT 2.57 10^6/ul (4.70-6.10); RED CELL DISTRIBUTION WIDTH 17.5 % (11.5-14.5)
[2018-03-02 05:07] LABS: WHITE BLOOD COUNT 11.6 10^3/ul (4.8-10.8)
[2018-03-02 05:29] LABS: ADD MAN DIFF? YES
[2018-03-02 05:44] LABS: ALANINE AMINOTRANSFERASE 26 IU/L (13-69); ALBUMIN 2.1 g/dl (3.3-4.9); ALBUMIN/GLOBULIN RATIO 0.65; ALKALINE PHOSPHATASE 83 IU/L (42-121); ANION GAP 8 (8-16); ASPARTATE AMINO TRANSFERASE 30 IU/L (15-46); BILIRUBIN,INDIRECT 1.1 mg/dl (0-1.1); BILIRUBIN,TOTAL 1.1 mg/dl (0.2-1.3); BLOOD UREA NITROGEN 61 mg/dl (7-20); CALCIUM 7.6 mg/dl (8.4-10.2); CARBON DIOXIDE 27 mmol/L (21-31); CHLORIDE 108 mmol/L (97-110); CREATININE 2.74 mg/dl (0.61-1.24); GLUCOSE 106 mg/dl (70-220); POTASSIUM 3.9 mmol/L (3.5-5.1); SODIUM 139 mmol/L (135-144); TOTAL PROTEIN 5.3 g/dl (6.1-8.1)
[2018-03-02] MEDS: PANTOPRAZOLE 40 MG INJ IV ×2 (06:14→18:51)
[2018-03-02] MEDS: INSULIN ASPART [NOVOLOG] 3 ML PEN SC ×4 (07:35→20:39)
[2018-03-02] MEDS: PROPRANOLOL 10 MG TAB PO ×3 (08:01→20:32)
[2018-03-02] MEDS ORDERED: VANCOMYCIN IV PER PHARMACY XX (09:00)
[2018-03-02] MEDS: DEXTROSE 5%-0.45% NACL 1,000 ML IV (09:10)
[2018-03-02] MEDS: MEROPENEM 500MG/50 ML (PMX) 50 ML IVPB ×2 (09:21→20:40)
[2018-03-02 09:37] LABS: ANISOCYTOSIS 1+ (0-0); BAND NEUTROPHILS #M 5.3 10^3/ul (0.0-0.6); BAND NEUTROPHILS % (M) 46 % (0-4); HYPOCHROMASIA 1+ (0-0); LYMPHOCYTES #M 0.2 10^3/ul (0.8-2.9); LYMPHOCYTES % (M) 2 % (15-51); METAMYELOCYTES #M 0.5 10^3/ul (0.0-0.0); METAMYELOCYTES %M 5 % (0-0); MONOCYTE #M 0.1 10^3/ul (0.3-0.9); MONOCYTES % (M) 1 % (0-11); MYELOCYTES #M 0.1 10^3/ul (0.0-0.0); MYELOCYTES % (M) 1 % (0-0); PLATELET ESTIMATE SIG DECREASED; POLYCHROMASIA 3+ (0-0); SEG NEUT #M 5.8 10^3/ul (1.6-7.5); SEGMENTED NEUTROPHILS (M) % 45 % (39-77)
[2018-03-02] MEDS: SOD CHLORIDE 0.9% 250 ML IV* (10:03)
[2018-03-02] MEDS: VANCOMYCIN 2 GM in SOD CHLORIDE 0.9% 500 ML IVPB (10:33)
[2018-03-02] MEDS: BUMETANIDE 25 MG in DEXTROSE 5% 150 ML IV (10:33)
[2018-03-02 12:55] LABS: ADD MAN DIFF? NO
[2018-03-02 12:59] LABS: WHITE BLOOD COUNT 14.9 10^3/ul (4.8-10.8)
[2018-03-02 12:59] LABS: ABNORMAL IP MESSAGE 1; BASOPHILS % 0.3 % (0.0-2.0); EOSINOPHILS % 0.1 % (0.0-7.0); HEMATOCRIT 26.2 % (42.0-52.0); HEMOGLOBIN 8.2 g/dl (14.0-18.0); LYMPHOCYTES # 0.3 10^3/ul (0.8-2.9); LYMPHOCYTES % 2.3 % (15.0-51.0); MEAN CORPUSCULAR HEMOGLOBIN 29.1 pg (29.0-33.0); MEAN CORPUSCULAR HGB CONC 31.3 g/dl (32.0-37.0); MEAN CORPUSCULAR VOLUME 92.9 fl (82.0-101.0); MEAN PLATELET VOLUME 12.3 fl (7.4-10.4); MONOCYTE # 0.4 10^3/ul (0.3-0.9); MONOCYTES % 2.4 % (0.0-11.0); NEUTROPHIL # 14.1 10^3/ul (1.6-7.5); POSITIVE DIFF @See below; RED BLOOD COUNT 2.82 10^6/ul (4.70-6.10)
[2018-03-02 13:02] LABS: NEUTROPHILS % 94.4 % (39.0-77.0)
[2018-03-02 13:04] LABS: PLATELET COUNT 36 10^3/UL (140-415)
[2018-03-02 14:39] LABS: IMMEDIATE SPIN CROSSMATCH 1 3
[2018-03-02] MEDS: LACTULOSE 30ML CUP PO (20:32)
[2018-03-02] MEDS: ATORVASTATIN 10 MG TAB PO (20:32)
[2018-03-02] MEDS: ESCITALOPRAM 10 MG TAB PO (20:32)
[2018-03-02] MEDS: INSULIN GLARGINE [LANtus] 3 ML PEN SC (20:41)
[2018-03-02 22:15] LABS: TYPE AND SCREEN 1
[2018-03-03] MEDS: ACCU-CHEK XX (01:01)
[2018-03-03] MEDS: ALBUTEROL 0.083% (NEB) 2.5 MG/3 ML AMP HHN ×4 (01:06→19:24)
[2018-03-03] MEDS: DEXTROSE 5%-0.45% NACL 1,000 ML IV (05:05)
[2018-03-03] MEDS: PANTOPRAZOLE 40 MG INJ IV ×2 (05:06→17:04)
[2018-03-03 05:22] LABS: WHITE BLOOD COUNT 11.8 10^3/ul (4.8-10.8)
[2018-03-03 05:22] LABS: ABNORMAL IP MESSAGE 1; HEMATOCRIT 25.7 % (42.0-52.0); HEMOGLOBIN 8.2 g/dl (14.0-18.0); MEAN CORPUSCULAR HEMOGLOBIN 29.4 pg (29.0-33.0); MEAN CORPUSCULAR HGB CONC 31.9 g/dl (32.0-37.0); MEAN CORPUSCULAR VOLUME 92.1 fl (82.0-101.0); MEAN PLATELET VOLUME 12.5 fl (7.4-10.4); PLATELET COUNT 48 10^3/UL (140-415); POSITIVE DIFF @See below; RED BLOOD COUNT 2.79 10^6/ul (4.70-6.10)
[2018-03-03 05:25] LABS: ADD MAN DIFF? YES
[2018-03-03 05:42] LABS: AMMONIA 11 umol/l (9-30)
[2018-03-03 06:12] LABS: ALANINE AMINOTRANSFERASE 23 IU/L (13-69); ALBUMIN 2.4 g/dl (3.3-4.9); ALBUMIN/GLOBULIN RATIO 0.68; ALKALINE PHOSPHATASE 87 IU/L (42-121); ANION GAP 10 (8-16); ASPARTATE AMINO TRANSFERASE 34 IU/L (15-46); BLOOD UREA NITROGEN 72 mg/dl (7-20); CALCIUM 7.8 mg/dl (8.4-10.2); CARBON DIOXIDE 29 mmol/L (21-31); CHLORIDE 105 mmol/L (97-110); CREATININE 3.22 mg/dl (0.61-1.24); GLUCOSE 174 mg/dl (70-220); PHOSPHORUS 5.7 mg/dl (2.5-4.9); POTASSIUM 4.1 mmol/L (3.5-5.1); SODIUM 140 mmol/L (135-144); TOTAL PROTEIN 5.9 g/dl (6.1-8.1)
[2018-03-03] MEDS: PROPRANOLOL 10 MG TAB PO ×3 (08:14→21:00)
[2018-03-03 08:18] LABS: ANISOCYTOSIS 1+ (0-0); BAND NEUTROPHILS #M 2.2 10^3/ul (0.0-0.6); BAND NEUTROPHILS % (M) 19 % (0-4); EOSINOPHILS % (M) 1 % (0-7); LYMPHOCYTES #M 0.1 10^3/ul (0.8-2.9); LYMPHOCYTES % (M) 1 % (15-51); PLATELET ESTIMATE SIG DECREASED; POLYCHROMASIA 2+ (0-0); SEG NEUT #M 9.6 10^3/ul (1.6-7.5); SEGMENTED NEUTROPHILS (M) % 79 % (39-77); SMUDGE%M 4 % (0-0)
[2018-03-03] MEDS: MEROPENEM 500MG/50 ML (PMX) 50 ML IVPB ×2 (08:33→21:06)
[2018-03-03] MEDS: INSULIN ASPART [NOVOLOG] 3 ML PEN SC ×4 (08:33→21:00)
[2018-03-03 08:53] LABS: AADO2 Arterial 239.9 mmHg (7.0-24.0); Allen Test ACCEPTAB; Arterial Base Excess 0.2 mmol/L (-3.0-3); Arterial Blood Gas Oxygen Sat 80.6 mmHG (95.0-98.0); Arterial COHb 0.6 % (0.0-3.0); Arterial Fraction of Oxyhgb 79.8 % (93.0-99.0); Arterial HCO3 27.1 mmol/L (22.0-26.0); Arterial MetHb 0.4 % (0.0-1.5); Arterial Total Hemglobin 9.6 g/dl (12.0-18.0); Arterial pCO2 56.4 mmhg (35-45); MODE MASK - SIMPLE; Site Right Radial
[2018-03-03] MEDS: morphine 2 MG INJ IV (15:26)
[2018-03-03] MEDS: BUMETANIDE 25 MG in DEXTROSE 5% 150 ML IV (16:58)
[2018-03-03] MEDS: EPOETIN ALFA (NESRD) 3,000 UNITS/ML VIAL SC (17:04)
[2018-03-03 17:17] LABS: RETICULOCYTE COUNT # 0.099 X10^6 (0.020-0.110); RETICULOCYTE COUNT % 3.3 % (0.5-1.5)
[2018-03-03 17:17] LABS: RETICULOCYTE RBC 3.05
[2018-03-03 17:44] LABS: INR 1.38; PROTIME 17.2 Sec (11.9-14.9); PT RATIO 1.3
[2018-03-03 17:45] LABS: LACTATE DEHYDROGENASE 905 IU/L (313-618)
[2018-03-03 17:45] LABS: PARTIAL THROMBOPLASTIN TIME 45.7 Sec (25.0-35.0)
[2018-03-03 18:27] LABS: THROMBIN TIME 14.5 SEC (13.8-19.1)
[2018-03-03 18:31] LABS: PLATELET COUNT 54 10^3/UL (140-415)
[2018-03-03 18:35] LABS: WHITE BLOOD COUNT 11.7 10^3/ul (4.8-10.8)
[2018-03-03 18:35] LABS: ABNORMAL IP MESSAGE 1; HEMATOCRIT 28.3 % (42.0-52.0); HEMOGLOBIN 8.8 g/dl (14.0-18.0); MEAN CORPUSCULAR HEMOGLOBIN 28.7 pg (29.0-33.0); MEAN CORPUSCULAR HGB CONC 31.1 g/dl (32.0-37.0); MEAN CORPUSCULAR VOLUME 92.2 fl (82.0-101.0); MEAN PLATELET VOLUME 12.2 fl (7.4-10.4); PLATELET COUNT 53 10^3/UL (140-415); POSITIVE DIFF @See below; RED BLOOD COUNT 3.07 10^6/ul (4.70-6.10); RED CELL DISTRIBUTION WIDTH 17.9 % (11.5-14.5)
[2018-03-03 18:41] LABS: ADD MAN DIFF? YES
[2018-03-03 18:47] LABS: ANION GAP 9 (8-16); BLOOD UREA NITROGEN 44 mg/dl (7-20); CALCIUM 7.9 mg/dl (8.4-10.2); CARBON DIOXIDE 29 mmol/L (21-31); CHLORIDE 103 mmol/L (97-110); CREATININE 1.94 mg/dl (0.61-1.24); GLUCOSE 139 mg/dl (70-220); MAGNESIUM 1.8 mg/dl (1.7-2.5); POTASSIUM 3.7 mmol/L (3.5-5.1); SODIUM 137 mmol/L (135-144)
[2018-03-03 19:02] LABS: D-DIMER 6455.47 ng/ml (<460)
[2018-03-03] MEDS: INSULIN GLARGINE [LANtus] 3 ML PEN SC (20:00)
[2018-03-03 20:10] LABS: ERYTHROCYTE SEDIMENTATION RATE 45 mm/Hr (0-20)
[2018-03-03 20:19] LABS: FIBRIN SPLIT PRODUCT >10 and <40 ug/ml (<10)
[2018-03-03] MEDS: LACTULOSE 30ML CUP PO (21:00)
[2018-03-03] MEDS: ATORVASTATIN 10 MG TAB PO (21:00)
[2018-03-03] MEDS: ESCITALOPRAM 10 MG TAB PO (21:00)
[2018-03-04] MEDS: DEXTROSE 5%-0.45% NACL 1,000 ML IV (00:36)
[2018-03-04] MEDS: INSULIN ASPART [NOVOLOG] 3 ML PEN SC ×7 (01:00→21:00)
[2018-03-04] MEDS: ALBUTEROL 0.083% (NEB) 2.5 MG/3 ML AMP HHN ×4 (01:31→19:00)
[2018-03-04] MEDS ORDERED: ACCU-CHEK XX (02:00)
[2018-03-04 04:55] LABS: Allen Test ACCEPTAB; Arterial Base Excess 3.3 mmol/L (-3.0-3); Arterial Blood Gas Oxygen Sat 97.1 mmHG (95.0-98.0); Arterial COHb 0.6 % (0.0-3.0); Arterial Fraction of Oxyhgb 96.2 % (93.0-99.0); Arterial HCO3 29.4 mmol/L (22.0-26.0); Arterial MetHb 0.3 % (0.0-1.5); Arterial Total Hemglobin 10.7 g/dl (12.0-18.0); Arterial pCO2 52.7 mmhg (35-45); Blood Gas IEPAP 15/5; MODE MASK - BIPAP; Site Left Radial
[2018-03-04 05:33] LABS: ADD MAN DIFF? NO
[2018-03-04] MEDS: PANTOPRAZOLE 40 MG INJ IV ×2 (05:36→17:10)
[2018-03-04 05:55] LABS: ABNORMAL IP MESSAGE 1; BASOPHILS % 0.2 % (0.0-2.0); EOSINOPHILS # 0.2 10^3/ul (0.0-0.5); EOSINOPHILS % 1.7 % (0.0-7.0); HEMATOCRIT 26.5 % (42.0-52.0); HEMOGLOBIN 8.3 g/dl (14.0-18.0); LYMPHOCYTES # 0.4 10^3/ul (0.8-2.9); LYMPHOCYTES % 3.8 % (15.0-51.0); MEAN CORPUSCULAR HEMOGLOBIN 28.9 pg (29.0-33.0); MEAN CORPUSCULAR HGB CONC 31.3 g/dl (32.0-37.0); MEAN CORPUSCULAR VOLUME 92.3 fl (82.0-101.0); MEAN PLATELET VOLUME 11.5 fl (7.4-10.4); MONOCYTE # 0.3 10^3/ul (0.3-0.9); MONOCYTES % 3.3 % (0.0-11.0); NEUTROPHIL # 8.2 10^3/ul (1.6-7.5); PLATELET COUNT 38 10^3/UL (140-415); POSITIVE DIFF @See below; RED BLOOD COUNT 2.87 10^6/ul (4.70-6.10); RED CELL DISTRIBUTION WIDTH 17.8 % (11.5-14.5)
[2018-03-04 05:55] LABS: WHITE BLOOD COUNT 9.2 10^3/ul (4.8-10.8)
[2018-03-04 05:56] LABS: ANION GAP 6 (8-16); BLOOD UREA NITROGEN 51 mg/dl (7-20); CALCIUM 7.7 mg/dl (8.4-10.2); CARBON DIOXIDE 33 mmol/L (21-31); CHLORIDE 104 mmol/L (97-110); CREATININE 2.33 mg/dl (0.61-1.24); GLUCOSE 128 mg/dl (70-220); POTASSIUM 3.6 mmol/L (3.5-5.1); SODIUM 139 mmol/L (135-144)
[2018-03-04] MEDS: PROPRANOLOL 10 MG TAB PO ×3 (09:00→21:00)
[2018-03-04] MEDS: SOD CHLORIDE 0.9% 250 ML IV* (09:24)
[2018-03-04] MEDS: morphine 2 MG INJ IV ×2 (09:59→23:45)
[2018-03-04 12:13] LABS: TROPONIN-I 0.021 ng/ml (0.000-0.120)
[2018-03-04] MEDS: MEROPENEM 500MG/50 ML (PMX) 50 ML IVPB ×2 (13:40→21:36)
[2018-03-04 14:25] LABS: TYPE AND SCREEN 1 1
[2018-03-04] MEDS: VANCOMYCIN 1.25 GM in SOD CHLORIDE 0.9% 250 ML IVPB (16:18)
[2018-03-04] MEDS: BUMETANIDE 25 MG in DEXTROSE 5% 150 ML IV (17:10)
[2018-03-04 18:58] LABS: ANION GAP 10 (8-16); BLOOD UREA NITROGEN 34 mg/dl (7-20); CALCIUM 7.7 mg/dl (8.4-10.2); CARBON DIOXIDE 31 mmol/L (21-31); CHLORIDE 100 mmol/L (97-110); CREATININE 1.69 mg/dl (0.61-1.24); GLUCOSE 112 mg/dl (70-220); MAGNESIUM 1.8 mg/dl (1.7-2.5); POTASSIUM 3.5 mmol/L (3.5-5.1); SODIUM 137 mmol/L (135-144)
[2018-03-04] MEDS: LACTULOSE 30ML CUP PO (21:00)
[2018-03-04] MEDS: ATORVASTATIN 10 MG TAB PO (21:00)
[2018-03-04] MEDS: ESCITALOPRAM 10 MG TAB PO (21:00)
[2018-03-04] MEDS: INSULIN GLARGINE [LANtus] 3 ML PEN SC (22:25)
[2018-03-05] MEDS: INSULIN ASPART [NOVOLOG] 3 ML PEN SC ×6 (01:00→21:11)
[2018-03-05] MEDS: ALBUTEROL 0.083% (NEB) 2.5 MG/3 ML AMP HHN ×4 (01:20→19:27)
[2018-03-05 05:03] LABS: AADO2 Arterial 181.1 mmHg (7.0-24.0); Allen Test ACCEPTAB; Arterial Base Excess 3.8 mmol/L (-3.0-3); Arterial Blood Gas Oxygen Sat 97.4 mmHG (95.0-98.0); Arterial COHb 1.6 % (0.0-3.0); Arterial Fraction of Oxyhgb 95.6 % (93.0-99.0); Arterial HCO3 31.1 mmol/L (22.0-26.0); Arterial MetHb 0.2 % (0.0-1.5); Arterial Total Hemglobin 9.5 g/dl (12.0-18.0); Arterial pCO2 62.9 mmhg (35-45); MODE MASK - SIMPLE; Site Right Radial
[2018-03-05 05:13] LABS: ADD MAN DIFF? NO
[2018-03-05 05:19] LABS: ABNORMAL IP MESSAGE 1; BASOPHILS % 0.2 % (0.0-2.0); EOSINOPHILS # 0.3 10^3/ul (0.0-0.5); EOSINOPHILS % 3.1 % (0.0-7.0); HEMOGLOBIN 8.9 g/dl (14.0-18.0); LYMPHOCYTES # 0.4 10^3/ul (0.8-2.9); LYMPHOCYTES % 4.2 % (15.0-51.0); MEAN CORPUSCULAR HGB CONC 30.7 g/dl (32.0-37.0); MEAN CORPUSCULAR VOLUME 94.5 fl (82.0-101.0); MEAN PLATELET VOLUME 11.5 fl (7.4-10.4); MONOCYTE # 0.4 10^3/ul (0.3-0.9); MONOCYTES % 4.7 % (0.0-11.0); NEUTROPHIL # 7.8 10^3/ul (1.6-7.5); PLATELET COUNT 58 10^3/UL (140-415); POSITIVE DIFF @See below; RED BLOOD COUNT 3.07 10^6/ul (4.70-6.10)
[2018-03-05 05:40] LABS: INR 1.15; PROTIME 14.9 Sec (11.9-14.9); PT RATIO 1.2
[2018-03-05 05:41] LABS: ALANINE AMINOTRANSFERASE 23 IU/L (13-69); ALBUMIN 2.6 g/dl (3.3-4.9); ALBUMIN/GLOBULIN RATIO 0.65; ALKALINE PHOSPHATASE 89 IU/L (42-121); ANION GAP 11 (8-16); ASPARTATE AMINO TRANSFERASE 31 IU/L (15-46); BILIRUBIN,INDIRECT 1.2 mg/dl (0-1.1); BILIRUBIN,TOTAL 1.2 mg/dl (0.2-1.3); BLOOD UREA NITROGEN 39 mg/dl (7-20); CALCIUM 7.8 mg/dl (8.4-10.2); CARBON DIOXIDE 32 mmol/L (21-31); CHLORIDE 100 mmol/L (97-110); CREATININE 1.93 mg/dl (0.61-1.24); GLUCOSE 120 mg/dl (70-220); PARTIAL THROMBOPLASTIN TIME 43.9 Sec (25.0-35.0); POTASSIUM 3.5 mmol/L (3.5-5.1); SODIUM 139 mmol/L (135-144); TOTAL PROTEIN 6.6 g/dl (6.1-8.1)
[2018-03-05] MEDS: PANTOPRAZOLE 40 MG INJ IV ×2 (05:43→18:26)
[2018-03-05] MEDS: DEXTROSE 5%-0.45% NACL 1,000 ML IV ×2 (05:44→17:00)
[2018-03-05] MEDS: morphine 2 MG INJ IV (07:40)
[2018-03-05] MEDS: PROPRANOLOL 10 MG TAB PO ×3 (09:00→21:05)
[2018-03-05] MEDS: MEROPENEM 500MG/50 ML (PMX) 50 ML IVPB ×2 (11:10→21:05)
[2018-03-05] MEDS: METHYLPREDNISOLONE 125 MG INJ IV ×2 (11:47→18:27)
[2018-03-05 11:56] LABS: PROTEIN, TOTAL 6.1 g/dL (6.1-8.1)
[2018-03-05 14:11] LABS: AADO2 Arterial 250.2 mmHg (7.0-24.0); Allen Test ACCEPTAB; Arterial Base Excess 5.9 mmol/L (-3.0-3); Arterial Blood Gas Oxygen Sat 97.8 mmHG (95.0-98.0); Arterial COHb 1.3 % (0.0-3.0); Arterial Fraction of Oxyhgb 96.3 % (93.0-99.0); Arterial HCO3 33.6 mmol/L (22.0-26.0); Arterial MetHb 0.2 % (0.0-1.5); Arterial Total Hemglobin 11.4 g/dl (12.0-18.0); Arterial pCO2 66.5 mmhg (35-45); MODE HFNC; Site Left Radial
[2018-03-05] MEDS: BUMETANIDE 25 MG in DEXTROSE 5% 150 ML IV (17:00)
[2018-03-05] MEDS: LACTULOSE 30ML CUP PO (21:05)
[2018-03-05] MEDS: ATORVASTATIN 10 MG TAB PO (21:06)
[2018-03-05] MEDS: ESCITALOPRAM 10 MG TAB PO (21:06)
[2018-03-06] MEDS: morphine 2 MG INJ IV (00:32)
[2018-03-06] MEDS: METHYLPREDNISOLONE 125 MG INJ IV ×4 (00:32→17:39)
[2018-03-06] MEDS: INSULIN ASPART [NOVOLOG] 3 ML PEN SC ×7 (01:43→22:01)
[2018-03-06] MEDS: ALBUTEROL 0.083% (NEB) 2.5 MG/3 ML AMP HHN ×4 (02:05→20:00)
[2018-03-06 05:41] LABS: WHITE BLOOD COUNT 2.9 10^3/ul (4.8-10.8)
[2018-03-06 05:41] LABS: ABNORMAL IP MESSAGE 1; HEMATOCRIT 26.7 % (42.0-52.0); HEMOGLOBIN 8.5 g/dl (14.0-18.0); MEAN CORPUSCULAR HEMOGLOBIN 29.1 pg (29.0-33.0); MEAN CORPUSCULAR HGB CONC 31.8 g/dl (32.0-37.0); MEAN CORPUSCULAR VOLUME 91.4 fl (82.0-101.0); POSITIVE DIFF @See below; RED BLOOD COUNT 2.92 10^6/ul (4.70-6.10); RED CELL DISTRIBUTION WIDTH 15.9 % (11.5-14.5)
[2018-03-06] MEDS: DEXTROSE 5%-0.45% NACL 1,000 ML IV (06:00)
[2018-03-06] MEDS: PANTOPRAZOLE 40 MG INJ IV ×2 (06:03→17:39)
[2018-03-06 06:26] LABS: ALANINE AMINOTRANSFERASE 22 IU/L (13-69); ALBUMIN 2.5 g/dl (3.3-4.9); ALBUMIN/GLOBULIN RATIO 0.64; ALKALINE PHOSPHATASE 83 IU/L (42-121); ANION GAP 10 (8-16); ASPARTATE AMINO TRANSFERASE 27 IU/L (15-46); BILIRUBIN,INDIRECT 1.2 mg/dl (0-1.1); BILIRUBIN,TOTAL 1.2 mg/dl (0.2-1.3); BLOOD UREA NITROGEN 45 mg/dl (7-20); CALCIUM 7.9 mg/dl (8.4-10.2); CARBON DIOXIDE 29 mmol/L (21-31); CHLORIDE 98 mmol/L (97-110); CREATININE 1.91 mg/dl (0.61-1.24); GLUCOSE 219 mg/dl (70-220); POTASSIUM 3.8 mmol/L (3.5-5.1); SODIUM 133 mmol/L (135-144); TOTAL PROTEIN 6.4 g/dl (6.1-8.1)
[2018-03-06 06:27] LABS: PLATELET COUNT 53 10^3/UL (140-415)
[2018-03-06 06:28] LABS: ADD MAN DIFF? YES
[2018-03-06 08:31] LABS: ANISOCYTOSIS 1+ (0-0); GIANT THROMBO% (M) 1 % (0-0); LYMPHOCYTES #M 0.1 10^3/ul (0.8-2.9); LYMPHOCYTES % (M) 5 % (15-51); POLYCHROMASIA 3+ (0-0); SEG NEUT #M 2.6 10^3/ul (1.6-7.5)
[2018-03-06] MEDS: MEROPENEM 500MG/50 ML (PMX) 50 ML IVPB ×2 (09:11→20:02)
[2018-03-06] MEDS: PROPRANOLOL 10 MG TAB PO ×3 (09:11→21:45)
[2018-03-06] MEDS: DOXYCYCLINE 100 MG in SOD CHLORIDE 0.9% 250 ML IVPB ×2 (09:30→20:55)
[2018-03-06 09:45] LABS: BAND NEUTROPHILS #M 0.1 10^3/ul (0.0-0.6); BAND NEUTROPHILS % (M) 5 % (0-4); MONOCYTES % (M) 1 % (0-11); PLATELET ESTIMATE DECREASED; REACTIVE LYMPHOCYTES% (M) 1 % (0-0); SEGMENTED NEUTROPHILS (M) % 89 % (39-77); SMUDGE%M 4 % (0-0)
[2018-03-06] MEDS: ACETAMINOPHEN 325 MG TAB PO (10:29)
[2018-03-06] MEDS: INSULIN GLARGINE [LANtus] 3 ML PEN SC (13:04)
[2018-03-06 17:13] LABS: HAPTOGLOBIN <15 mg/dL (43-212)
[2018-03-06] MEDS: EPOETIN ALFA (NESRD) 3,000 UNITS/ML VIAL SC (17:44)
[2018-03-06] MEDS: LACTULOSE 30ML CUP PO ×2 (21:00→21:42)
[2018-03-06] MEDS: ATORVASTATIN 10 MG TAB PO (21:42)
[2018-03-06] MEDS: ESCITALOPRAM 10 MG TAB PO (21:42)
[2018-03-06 23:07] LABS: ALBUMIN 2.5 g/dL (3.8-4.8); ALPHA-1-GLOBULINS 0.5 g/dL (0.2-0.3); ALPHA-2-GLOBULINS 0.4 g/dL (0.5-0.9); BETA 2 GLOBULINS 0.5 g/dL (0.2-0.5); BETA GLOBULINS 0.4 g/dL (0.4-0.6); GAMMA GLOBULINS 1.9 g/dL (0.8-1.7)
[2018-03-07] MEDS: METHYLPREDNISOLONE 125 MG INJ IV ×5 (00:32→23:40)
[2018-03-07] MEDS: ALBUTEROL 0.083% (NEB) 2.5 MG/3 ML AMP HHN ×4 (02:23→20:00)
[2018-03-07] MEDS: morphine LIQ (10 MG/5 ML) CUP PO (03:07)
[2018-03-07 05:13] LABS: ADD MAN DIFF? NO
[2018-03-07 05:21] LABS: WHITE BLOOD COUNT 3.9 10^3/ul (4.8-10.8)
[2018-03-07 05:21] LABS: ABNORMAL IP MESSAGE 1; HEMATOCRIT 25.3 % (42.0-52.0); HEMOGLOBIN 8.2 g/dl (14.0-18.0); LYMPHOCYTES # 0.2 10^3/ul (0.8-2.9); LYMPHOCYTES % 4.8 % (15.0-51.0); MEAN CORPUSCULAR HEMOGLOBIN 28.9 pg (29.0-33.0); MEAN CORPUSCULAR HGB CONC 32.4 g/dl (32.0-37.0); MEAN CORPUSCULAR VOLUME 89.1 fl (82.0-101.0); MEAN PLATELET VOLUME 13.7 fl (7.4-10.4); MONOCYTE # 0.2 10^3/ul (0.3-0.9); MONOCYTES % 4.1 % (0.0-11.0); NEUTROPHIL # 3.6 10^3/ul (1.6-7.5); NEUTROPHILS % 90.6 % (39.0-77.0); PLATELET COUNT 67 10^3/UL (140-415); POSITIVE DIFF @See below; RED BLOOD COUNT 2.84 10^6/ul (4.70-6.10); RED CELL DISTRIBUTION WIDTH 16.2 % (11.5-14.5)
[2018-03-07] MEDS: PANTOPRAZOLE 40 MG INJ IV ×2 (05:52→18:03)
[2018-03-07 06:00] LABS: ALANINE AMINOTRANSFERASE 23 IU/L (13-69); ALBUMIN 2.5 g/dl (3.3-4.9); ALBUMIN/GLOBULIN RATIO 0.62; ALKALINE PHOSPHATASE 86 IU/L (42-121); ANION GAP 9 (8-16); ASPARTATE AMINO TRANSFERASE 27 IU/L (15-46); BILIRUBIN,INDIRECT 0.9 mg/dl (0-1.1); BILIRUBIN,TOTAL 0.9 mg/dl (0.2-1.3); BLOOD UREA NITROGEN 68 mg/dl (7-20); CARBON DIOXIDE 27 mmol/L (21-31); CHLORIDE 100 mmol/L (97-110); CREATININE 2.56 mg/dl (0.61-1.24); GLUCOSE 237 mg/dl (70-220); MAGNESIUM 1.9 mg/dl (1.7-2.5); PHOSPHORUS 5.1 mg/dl (2.5-4.9); POTASSIUM 4.1 mmol/L (3.5-5.1); SODIUM 132 mmol/L (135-144); TOTAL PROTEIN 6.5 g/dl (6.1-8.1)
[2018-03-07] MEDS ORDERED: INSULIN GLARGINE [LANtus] 3 ML PEN SC (08:00)
[2018-03-07] MEDS: INSULIN ASPART [NOVOLOG] 3 ML PEN SC ×7 (08:29→20:48)
[2018-03-07] MEDS: INSULIN GLARGINE [LANtus] 3 ML PEN SC (08:30)
[2018-03-07] MEDS: PROPRANOLOL 10 MG TAB PO ×4 (08:31→20:31)
[2018-03-07] MEDS: MEROPENEM 500MG/50 ML (PMX) 50 ML IVPB ×2 (09:00→21:12)
[2018-03-07] MEDS: DOXYCYCLINE 100 MG in SOD CHLORIDE 0.9% 250 ML IVPB ×2 (09:00→21:21)
[2018-03-07] MEDS ORDERED: ALBUMIN HUMAN 25% 100 ML IV (09:00)
[2018-03-07] MEDS: SOD CHLORIDE 0.9% 250 ML IV* (09:45)
[2018-03-07 11:16] LABS: AADO2 Arterial 77.3 mmHg (7.0-24.0); Allen Test ACCEPTAB; Arterial Base Excess 5.2 mmol/L (-3.0-3); Arterial COHb 1.3 % (0.0-3.0); Arterial Fraction of Oxyhgb 91.6 % (93.0-99.0); Arterial HCO3 30.5 mmol/L (22.0-26.0); Arterial MetHb 0.2 % (0.0-1.5); Arterial Total Hemglobin 8.4 g/dl (12.0-18.0); MODE NASAL CANNULA; Site Right Radial
[2018-03-07 11:32] LABS: PROCALCITONIN 64.07 ng/mL (<0.10)
[2018-03-07] MEDS: NPH, HUMAN INSULIN ISOPHANE 3ML VIAL SC ×3 (13:38→23:53)
[2018-03-07] MEDS: ATORVASTATIN 10 MG TAB PO (20:28)
[2018-03-07] MEDS: ESCITALOPRAM 10 MG TAB PO (20:28)
[2018-03-07] MEDS: LACTULOSE 30ML CUP PO (20:32)
[2018-03-08] MEDS: ALBUTEROL 0.083% (NEB) 2.5 MG/3 ML AMP HHN ×4 (01:05→19:13)
[2018-03-08] MEDS: METHYLPREDNISOLONE 125 MG INJ IV ×3 (05:22→17:22)
[2018-03-08] MEDS: PANTOPRAZOLE 40 MG INJ IV ×2 (05:22→18:00)
[2018-03-08] MEDS: NPH, HUMAN INSULIN ISOPHANE 3ML VIAL SC ×4 (05:34→23:50)
[2018-03-08] MEDS: INSULIN ASPART [NOVOLOG] 3 ML PEN SC ×4 (07:55→21:01)
[2018-03-08 08:20] LABS: ADD MAN DIFF? NO
[2018-03-08 08:26] LABS: WHITE BLOOD COUNT 3.5 10^3/ul (4.8-10.8)
[2018-03-08 08:26] LABS: ABNORMAL IP MESSAGE 1; HEMATOCRIT 26.5 % (42.0-52.0); HEMOGLOBIN 8.6 g/dl (14.0-18.0); LYMPHOCYTES # 0.2 10^3/ul (0.8-2.9); LYMPHOCYTES % 4.6 % (15.0-51.0); MEAN CORPUSCULAR HEMOGLOBIN 29.5 pg (29.0-33.0); MEAN CORPUSCULAR HGB CONC 32.5 g/dl (32.0-37.0); MEAN CORPUSCULAR VOLUME 90.8 fl (82.0-101.0); MEAN PLATELET VOLUME 12.5 fl (7.4-10.4); MONOCYTE # 0.2 10^3/ul (0.3-0.9); MONOCYTES % 4.3 % (0.0-11.0); NEUTROPHIL # 3.1 10^3/ul (1.6-7.5); NEUTROPHILS % 90.2 % (39.0-77.0); PLATELET COUNT 74 10^3/UL (140-415); POSITIVE DIFF @See below; RED BLOOD COUNT 2.92 10^6/ul (4.70-6.10); RED CELL DISTRIBUTION WIDTH 16.5 % (11.5-14.5)
[2018-03-08] MEDS: PROPRANOLOL 10 MG TAB PO ×3 (08:31→20:49)
[2018-03-08] MEDS: MEROPENEM 500MG/50 ML (PMX) 50 ML IVPB ×2 (08:32→20:46)
[2018-03-08 08:45] LABS: ANION GAP 13 (8-16); BLOOD UREA NITROGEN 61 mg/dl (7-20); CARBON DIOXIDE 26 mmol/L (21-31); CHLORIDE 101 mmol/L (97-110); CREATININE 2.39 mg/dl (0.61-1.24); GLUCOSE 114 mg/dl (70-220); SODIUM 136 mmol/L (135-144)
[2018-03-08] MEDS: INSULIN GLARGINE [LANtus] 3 ML PEN SC (08:54)
[2018-03-08] MEDS: DOXYCYCLINE 100 MG in SOD CHLORIDE 0.9% 250 ML IVPB ×2 (09:53→20:50)
[2018-03-08] MEDS: EPOETIN ALFA (NESRD) 3,000 UNITS/ML VIAL SC (18:00)
[2018-03-08] MEDS: ATORVASTATIN 10 MG TAB PO (20:48)
[2018-03-08] MEDS: ESCITALOPRAM 10 MG TAB PO (20:48)
[2018-03-08] MEDS: LACTULOSE 30ML CUP PO (20:50)
[2018-03-08] MEDS: METHYLPREDNISOLONE 40 MG INJ IV (23:35)
[2018-03-09] MEDS: ALBUTEROL 0.083% (NEB) 2.5 MG/3 ML AMP HHN ×4 (01:47→21:05)
[2018-03-09] MEDS: METHYLPREDNISOLONE 40 MG INJ IV ×3 (05:19→17:38)
[2018-03-09] MEDS: PANTOPRAZOLE 40 MG INJ IV ×2 (05:19→17:38)
[2018-03-09] MEDS: NPH, HUMAN INSULIN ISOPHANE 3ML VIAL SC ×3 (05:32→17:57)
[2018-03-09 06:22] LABS: ADD MAN DIFF? NO
[2018-03-09 06:35] LABS: WHITE BLOOD COUNT 2.7 10^3/ul (4.8-10.8)
[2018-03-09 06:35] LABS: ABNORMAL IP MESSAGE 1; HEMOGLOBIN 8.8 g/dl (14.0-18.0); LYMPHOCYTES # 0.2 10^3/ul (0.8-2.9); LYMPHOCYTES % 5.9 % (15.0-51.0); MEAN CORPUSCULAR HEMOGLOBIN 28.6 pg (29.0-33.0); MEAN CORPUSCULAR HGB CONC 31.4 g/dl (32.0-37.0); MEAN CORPUSCULAR VOLUME 90.9 fl (82.0-101.0); MEAN PLATELET VOLUME 12.7 fl (7.4-10.4); MONOCYTE # 0.2 10^3/ul (0.3-0.9); MONOCYTES % 5.5 % (0.0-11.0); NEUTROPHIL # 2.4 10^3/ul (1.6-7.5); NEUTROPHILS % 87.9 % (39.0-77.0); POSITIVE DIFF @See below; RED BLOOD COUNT 3.08 10^6/ul (4.70-6.10); RED CELL DISTRIBUTION WIDTH 16.7 % (11.5-14.5)
[2018-03-09 06:58] LABS: PLATELET COUNT 66 10^3/UL (140-415)
[2018-03-09 06:59] LABS: ALANINE AMINOTRANSFERASE 30 IU/L (13-69); ALBUMIN 2.2 g/dl (3.3-4.9); ALBUMIN/GLOBULIN RATIO 0.62; ALKALINE PHOSPHATASE 115 IU/L (42-121); ANION GAP 17 (8-16); ASPARTATE AMINO TRANSFERASE 32 IU/L (15-46); BILIRUBIN,INDIRECT 0.7 mg/dl (0-1.1); BILIRUBIN,TOTAL 0.7 mg/dl (0.2-1.3); BLOOD UREA NITROGEN 81 mg/dl (7-20); CALCIUM 7.7 mg/dl (8.4-10.2); CARBON DIOXIDE 26 mmol/L (21-31); CHLORIDE 98 mmol/L (97-110); CREATININE 2.98 mg/dl (0.61-1.24); GLUCOSE 233 mg/dl (70-220); POTASSIUM 3.9 mmol/L (3.5-5.1); SODIUM 137 mmol/L (135-144); TOTAL PROTEIN 5.7 g/dl (6.1-8.1)
[2018-03-09] MEDS: INSULIN GLARGINE [LANtus] 3 ML PEN SC (07:57)
[2018-03-09] MEDS: INSULIN ASPART [NOVOLOG] 3 ML PEN SC ×4 (07:57→21:06)
[2018-03-09] MEDS: PROPRANOLOL 10 MG TAB PO ×3 (09:00→20:42)
[2018-03-09 12:47] LABS: PROCALCITONIN 17.63 ng/mL (<0.10)
[2018-03-09] MEDS: MEROPENEM 500MG/50 ML (PMX) 50 ML IVPB ×2 (12:47→20:41)
[2018-03-09] MEDS: DOXYCYCLINE 100 MG in SOD CHLORIDE 0.9% 250 ML IVPB ×2 (13:25→20:41)
[2018-03-09 13:47] LABS: ADD UMIC YES; UR AMORPHOUS CRYSTAL FEW /HPF (NONE SEEN); UR ASCORBIC ACID NEGATIVE (NEGATIVE); UR BACTERIA MODERATE /HPF (NONE SEEN); UR BILIRUBIN (Dip) NEGATIVE (NEGATIVE); UR BLOOD (Dip) 3+ mg/dL (NEGATIVE); UR CLARITY CLOUDY (CLEAR); UR COLOR AMBER (YELLOW); UR GLUCOSE (Dip) 1+ mg/dL (NEGATIVE); UR KETONES (Dip) NEGATIVE (NEGATIVE); UR LEUKOCYTE ESTERASE (Dip) TRACE Leu/ul (NEGATIVE); UR MUCUS FEW /HPF (NONE SEEN); UR NITRITE (Dip) NEGATIVE (NEGATIVE); UR RBC > 182 /HPF (0-5); UR SPECIFIC GRAVITY (Dip) 1.014 (1.003-1.030); UR TOTAL PROTEIN (Dip) 2+ mg/dl (NEGATIVE); UR UROBILINOGEN (Dip) NEGATIVE (NEGATIVE); UR WBC 35 /HPF (0-5)
[2018-03-09] MEDS: ESCITALOPRAM 10 MG TAB PO (20:42)
[2018-03-09] MEDS: LACTULOSE 30ML CUP PO ×2 (20:42→21:00)
[2018-03-09] MEDS: ATORVASTATIN 10 MG TAB PO (20:42)
[2018-03-10] MEDS: ALBUTEROL 0.083% (NEB) 2.5 MG/3 ML AMP HHN ×4 (01:20→21:18)
[2018-03-10] MEDS: PANTOPRAZOLE 40 MG INJ IV ×2 (05:44→17:38)
[2018-03-10] MEDS: INSULIN ASPART [NOVOLOG] 3 ML PEN SC ×4 (07:55→21:00)
[2018-03-10 08:12] LABS: ADD MAN DIFF? NO
[2018-03-10] MEDS: MEROPENEM 500MG/50 ML (PMX) 50 ML IVPB ×2 (08:13→21:29)
[2018-03-10] MEDS: predniSONE 20 MG TAB PO (08:14)
[2018-03-10] MEDS: INSULIN GLARGINE [LANtus] 3 ML PEN SC (08:24)
[2018-03-10 08:51] LABS: ABNORMAL IP MESSAGE 1; HEMATOCRIT 26.8 % (42.0-52.0); HEMOGLOBIN 8.5 g/dl (14.0-18.0); LYMPHOCYTES # 0.2 10^3/ul (0.8-2.9); MEAN CORPUSCULAR HEMOGLOBIN 28.7 pg (29.0-33.0); MEAN CORPUSCULAR HGB CONC 31.7 g/dl (32.0-37.0); MEAN CORPUSCULAR VOLUME 90.5 fl (82.0-101.0); MEAN PLATELET VOLUME 12.7 fl (7.4-10.4); MONOCYTE # 0.3 10^3/ul (0.3-0.9); MONOCYTES % 9.7 % (0.0-11.0); NEUTROPHIL # 2.7 10^3/ul (1.6-7.5); PLATELET COUNT 80 10^3/UL (140-415); POSITIVE DIFF @See below; RED BLOOD COUNT 2.96 10^6/ul (4.70-6.10); RED CELL DISTRIBUTION WIDTH 17.2 % (11.5-14.5)
[2018-03-10 08:51] LABS: WHITE BLOOD COUNT 3.2 10^3/ul (4.8-10.8)
[2018-03-10] MEDS: DOXYCYCLINE 100 MG in SOD CHLORIDE 0.9% 250 ML IVPB ×2 (09:16→21:45)
[2018-03-10] MEDS: PROPRANOLOL 10 MG TAB PO ×3 (09:16→21:35)
[2018-03-10 09:22] LABS: ANION GAP 12 (8-16); BLOOD UREA NITROGEN 61 mg/dl (7-20); CALCIUM 7.8 mg/dl (8.4-10.2); CARBON DIOXIDE 26 mmol/L (21-31); CHLORIDE 106 mmol/L (97-110); CREATININE 2.69 mg/dl (0.61-1.24); GLUCOSE 131 mg/dl (70-220); POTASSIUM 3.6 mmol/L (3.5-5.1); SODIUM 140 mmol/L (135-144)
[2018-03-10 15:03] LABS: MAGNESIUM 1.9 mg/dl (1.7-2.5)
[2018-03-10] MEDS: POTASSIUM CHLORIDE (SR) 20 MEQ TAB PO (15:50)
[2018-03-10] MEDS: EPOETIN 10000 UNITS/1 ML INJ (ESRD) SC (17:38)
[2018-03-10] MEDS: LACTULOSE 30ML CUP PO (21:00)
[2018-03-10] MEDS: ESCITALOPRAM 10 MG TAB PO (21:35)
[2018-03-10] MEDS: ATORVASTATIN 10 MG TAB PO (21:35)
[2018-03-11] MEDS: ALBUTEROL 0.083% (NEB) 2.5 MG/3 ML AMP HHN ×4 (01:47→20:48)
[2018-03-11] MEDS: PANTOPRAZOLE 40 MG INJ IV ×2 (06:17→19:11)
[2018-03-11 06:50] LABS: ADD MAN DIFF? NO
[2018-03-11 06:51] LABS: WHITE BLOOD COUNT 4.7 10^3/ul (4.8-10.8)
[2018-03-11 06:51] LABS: ABNORMAL IP MESSAGE 1; HEMATOCRIT 26.6 % (42.0-52.0); HEMOGLOBIN 8.5 g/dl (14.0-18.0); LYMPHOCYTES # 0.2 10^3/ul (0.8-2.9); LYMPHOCYTES % 5.2 % (15.0-51.0); MEAN CORPUSCULAR HEMOGLOBIN 29.1 pg (29.0-33.0); MEAN CORPUSCULAR VOLUME 91.1 fl (82.0-101.0); MEAN PLATELET VOLUME 12.6 fl (7.4-10.4); MONOCYTE # 0.4 10^3/ul (0.3-0.9); MONOCYTES % 7.7 % (0.0-11.0); NEUTROPHILS % 86.7 % (39.0-77.0); PLATELET COUNT 85 10^3/UL (140-415); POSITIVE DIFF @See below; RED BLOOD COUNT 2.92 10^6/ul (4.70-6.10); RED CELL DISTRIBUTION WIDTH 17.2 % (11.5-14.5)
[2018-03-11 07:16] LABS: ALANINE AMINOTRANSFERASE 35 IU/L (13-69); ALBUMIN 2.2 g/dl (3.3-4.9); ALBUMIN/GLOBULIN RATIO 0.66; ALKALINE PHOSPHATASE 124 IU/L (42-121); ANION GAP 15 (8-16); ASPARTATE AMINO TRANSFERASE 33 IU/L (15-46); BILIRUBIN,INDIRECT 0.9 mg/dl (0-1.1); BILIRUBIN,TOTAL 0.9 mg/dl (0.2-1.3); BLOOD UREA NITROGEN 74 mg/dl (7-20); CALCIUM 7.8 mg/dl (8.4-10.2); CARBON DIOXIDE 28 mmol/L (21-31); CHLORIDE 102 mmol/L (97-110); CREATININE 3.09 mg/dl (0.61-1.24); GLUCOSE 119 mg/dl (70-220); PHOSPHORUS 5.8 mg/dl (2.5-4.9); POTASSIUM 3.8 mmol/L (3.5-5.1); SODIUM 141 mmol/L (135-144); TOTAL PROTEIN 5.5 g/dl (6.1-8.1)
[2018-03-11] MEDS: INSULIN ASPART [NOVOLOG] 3 ML PEN SC ×4 (07:55→21:48)
[2018-03-11] MEDS: DOXYCYCLINE 100 MG TAB PO ×2 (08:48→21:39)
[2018-03-11] MEDS: MEROPENEM 500MG/50 ML (PMX) 50 ML IVPB ×2 (08:48→22:48)
[2018-03-11] MEDS: predniSONE 20 MG TAB PO (08:49)
[2018-03-11] MEDS: PROPRANOLOL 10 MG TAB PO ×3 (08:50→22:03)
[2018-03-11] MEDS: FLUCONAZOLE 100 MG TAB PO (08:50)
[2018-03-11] MEDS: INSULIN GLARGINE [LANtus] 3 ML PEN SC (09:01)
[2018-03-11] MEDS: LACTULOSE 30ML CUP PO (21:00)
[2018-03-11] MEDS: ATORVASTATIN 10 MG TAB PO (21:39)
[2018-03-11] MEDS: ESCITALOPRAM 10 MG TAB PO (21:40)
[2018-03-12] MEDS: ALBUTEROL 0.083% (NEB) 2.5 MG/3 ML AMP HHN ×4 (01:22→20:48)
[2018-03-12] MEDS: PANTOPRAZOLE 40 MG INJ IV ×2 (05:41→17:29)
[2018-03-12] MEDS: GUAIFENESIN/DM 5ML CUP PO (05:43)
[2018-03-12 06:19] LABS: ADD MAN DIFF? NO
[2018-03-12 06:28] LABS: ABNORMAL IP MESSAGE 1; EOSINOPHILS % 0.4 % (0.0-7.0); HEMATOCRIT 26.8 % (42.0-52.0); HEMOGLOBIN 8.4 g/dl (14.0-18.0); LYMPHOCYTES # 0.3 10^3/ul (0.8-2.9); MEAN CORPUSCULAR HEMOGLOBIN 28.4 pg (29.0-33.0); MEAN CORPUSCULAR HGB CONC 31.3 g/dl (32.0-37.0); MEAN CORPUSCULAR VOLUME 90.5 fl (82.0-101.0); MEAN PLATELET VOLUME 12.8 fl (7.4-10.4); MONOCYTE # 0.4 10^3/ul (0.3-0.9); MONOCYTES % 7.6 % (0.0-11.0); NEUTROPHIL # 4.7 10^3/ul (1.6-7.5); NEUTROPHILS % 86.6 % (39.0-77.0); PLATELET COUNT 81 10^3/UL (140-415); POSITIVE DIFF @See below; RED BLOOD COUNT 2.96 10^6/ul (4.70-6.10); RED CELL DISTRIBUTION WIDTH 17.2 % (11.5-14.5)
[2018-03-12 06:28] LABS: WHITE BLOOD COUNT 5.4 10^3/ul (4.8-10.8)
[2018-03-12 06:53] LABS: ALANINE AMINOTRANSFERASE 32 IU/L (13-69); ALBUMIN 2.3 g/dl (3.3-4.9); ALBUMIN/GLOBULIN RATIO 0.69; ALKALINE PHOSPHATASE 149 IU/L (42-121); ANION GAP 12 (8-16); ASPARTATE AMINO TRANSFERASE 34 IU/L (15-46); BILIRUBIN,INDIRECT 0.9 mg/dl (0-1.1); BILIRUBIN,TOTAL 0.9 mg/dl (0.2-1.3); BLOOD UREA NITROGEN 56 mg/dl (7-20); CALCIUM 7.6 mg/dl (8.4-10.2); CARBON DIOXIDE 30 mmol/L (21-31); CHLORIDE 99 mmol/L (97-110); CREATININE 2.56 mg/dl (0.61-1.24); GLUCOSE 186 mg/dl (70-220); PHOSPHORUS 4.4 mg/dl (2.5-4.9); SODIUM 137 mmol/L (135-144); TOTAL PROTEIN 5.6 g/dl (6.1-8.1)
[2018-03-12] MEDS: INSULIN ASPART [NOVOLOG] 3 ML PEN SC ×4 (07:38→20:43)
[2018-03-12] MEDS: INSULIN GLARGINE [LANtus] 3 ML PEN SC (07:38)
[2018-03-12] MEDS: MEROPENEM 500MG/50 ML (PMX) 50 ML IVPB ×2 (08:26→20:41)
[2018-03-12] MEDS: DOXYCYCLINE 100 MG TAB PO ×2 (08:27→20:41)
[2018-03-12] MEDS: predniSONE 20 MG TAB PO (08:28)
[2018-03-12] MEDS: PROPRANOLOL 10 MG TAB PO ×3 (08:28→20:39)
[2018-03-12] MEDS: FLUCONAZOLE 100 MG TAB PO (08:28)
[2018-03-12] MEDS: ESCITALOPRAM 10 MG TAB PO (20:41)
[2018-03-12] MEDS: LACTULOSE 30ML CUP PO (20:41)
[2018-03-12] MEDS: ATORVASTATIN 10 MG TAB PO (20:41)
[2018-03-13] MEDS: ZOLPIDEM 5 MG TAB PO (01:11)
[2018-03-13] MEDS: ALBUTEROL 0.083% (NEB) 2.5 MG/3 ML AMP HHN ×4 (02:24→20:37)
[2018-03-13] MEDS: PANTOPRAZOLE 40 MG INJ IV ×2 (05:16→17:11)
[2018-03-13 06:19] LABS: PARTIAL THROMBOPLASTIN TIME 32.5 Sec (25.0-35.0)
[2018-03-13] MEDS: predniSONE 20 MG TAB PO (08:01)
[2018-03-13] MEDS: FLUCONAZOLE 100 MG TAB PO (08:02)
[2018-03-13] MEDS: DOXYCYCLINE 100 MG TAB PO ×2 (08:02→21:57)
[2018-03-13] MEDS: MEROPENEM 500MG/50 ML (PMX) 50 ML IVPB ×5 (08:03→21:57)
[2018-03-13] MEDS: PROPRANOLOL 10 MG TAB PO ×3 (08:15→22:54)
[2018-03-13] MEDS: INSULIN ASPART [NOVOLOG] 3 ML PEN SC ×4 (08:22→22:00)
[2018-03-13] MEDS: INSULIN GLARGINE [LANtus] 3 ML PEN SC (08:23)
[2018-03-13] MEDS: EPOETIN 10000 UNITS/1 ML INJ (ESRD) SC (17:12)
[2018-03-13] MEDS: LACTULOSE 30ML CUP PO (21:00)
[2018-03-13] MEDS: ESCITALOPRAM 10 MG TAB PO (21:56)
[2018-03-13] MEDS: ATORVASTATIN 10 MG TAB PO (21:57)
[2018-03-14] MEDS: ALBUTEROL 0.083% (NEB) 2.5 MG/3 ML AMP HHN (01:25)
[2018-03-14 05:49] LABS: ADD MAN DIFF? NO
[2018-03-14 05:52] LABS: WHITE BLOOD COUNT 4.3 10^3/ul (4.8-10.8)
[2018-03-14 05:52] LABS: ABNORMAL IP MESSAGE 1; EOSINOPHILS % 0.2 % (0.0-7.0); HEMATOCRIT 25.7 % (42.0-52.0); HEMOGLOBIN 8.2 g/dl (14.0-18.0); LYMPHOCYTES # 0.2 10^3/ul (0.8-2.9); LYMPHOCYTES % 4.7 % (15.0-51.0); MEAN CORPUSCULAR HEMOGLOBIN 28.8 pg (29.0-33.0); MEAN CORPUSCULAR HGB CONC 31.9 g/dl (32.0-37.0); MEAN CORPUSCULAR VOLUME 90.2 fl (82.0-101.0); MONOCYTE # 0.4 10^3/ul (0.3-0.9); MONOCYTES % 10.3 % (0.0-11.0); NEUTROPHIL # 3.6 10^3/ul (1.6-7.5); NEUTROPHILS % 84.3 % (39.0-77.0); PLATELET COUNT 82 10^3/UL (140-415); POSITIVE DIFF @See below; RED BLOOD COUNT 2.85 10^6/ul (4.70-6.10); RED CELL DISTRIBUTION WIDTH 17.4 % (11.5-14.5)
[2018-03-14] MEDS: PANTOPRAZOLE 40 MG INJ IV (06:23)
[2018-03-14 06:38] LABS: ANION GAP 9 (8-16); BLOOD UREA NITROGEN 49 mg/dl (7-20); CALCIUM 7.7 mg/dl (8.4-10.2); CARBON DIOXIDE 30 mmol/L (21-31); CHLORIDE 105 mmol/L (97-110); CREATININE 2.53 mg/dl (0.61-1.24); GLUCOSE 164 mg/dl (70-220); POTASSIUM 4.1 mmol/L (3.5-5.1); SODIUM 140 mmol/L (135-144)
[2018-03-14] MEDS: FLUCONAZOLE 100 MG TAB PO (07:50)
[2018-03-14] MEDS: predniSONE 20 MG TAB PO (07:50)
[2018-03-14] MEDS: PROPRANOLOL 10 MG TAB PO ×2 (07:51→12:00)
[2018-03-14] MEDS: INSULIN GLARGINE [LANtus] 3 ML PEN SC (07:52)
[2018-03-14] MEDS: INSULIN ASPART [NOVOLOG] 3 ML PEN SC ×2 (07:53→12:02)
== END 2018-03-14 17:10 | disposition home or self-care (01) | DRG 377 ==
LOC: PP2 11:48 → TEL 02-26 22:19 → MS2 03-11 20:15 → ICU 03-01 15:30 → MS2 23:19 → TEL 03-07 17:57
PROVIDERS: Internal Medicine
PROC: 0DJD8ZZ Inspection of Lower Intestinal Tract, Via Natural or Artificial Opening Endoscopic (ICD-10-PCS; principal; 2018-03-01 10:30)
PROC: 02HV33Z Insertion of Infusion Device into Superior Vena Cava, Percutaneous Approach (ICD-10-PCS; 2018-03-01 10:30)
PROC: 0W9G3ZZ Drainage of Peritoneal Cavity, Percutaneous Approach (ICD-10-PCS; 2018-03-01 10:30)
PROC: 30233R1 Transfusion of Nonautologous Platelets into Peripheral Vein, Percutaneous Approach (ICD-10-PCS; 2018-03-01 10:30)
PROC: 30233N1 Transfusion of Nonautologous Red Blood Cells into Peripheral Vein, Percutaneous Approach (ICD-10-PCS; 2018-03-01 10:30)
PROC: 5A1D70Z Performance of Urinary Filtration, Intermittent, Less than 6 Hours Per Day (ICD-10-PCS; 2018-03-01 10:30)
PROC: 5A09457 Assistance with Respiratory Ventilation, 24-96 Consecutive Hours, Continuous Positive Airway Pressure (ICD-10-PCS; 2018-03-01 10:30)
PROC: 0DJ08ZZ Inspection of Upper Intestinal Tract, Via Natural or Artificial Opening Endoscopic (ICD-10-PCS; 2018-03-01 10:30)
DX: K55.21 Angiodysplasia of colon with hemorrhage (principal); J96.01 Acute respiratory failure with hypoxia; J69.0 Pneumonitis due to inhalation of food and vomit; N18.6 End stage renal disease; J18.9 Pneumonia, unspecified organism; K65.9 Peritonitis, unspecified; D61.818 Other pancytopenia; Z68.41 Body mass index [BMI] 40.0-44.9, adult; R18.8 Other ascites; I13.2 Hypertensive heart and chronic kidney disease with heart failure and with stage 5 chronic kidney disease, or end stage renal disease; K76.6 Portal hypertension; D62 Acute posthemorrhagic anemia; K74.69 Other cirrhosis of liver; K62.5 Hemorrhage of anus and rectum; K92.1 Melena; I50.9 Heart failure, unspecified; E11.22 Type 2 diabetes mellitus with diabetic chronic kidney disease; E66.9 Obesity, unspecified; Q27.33 Arteriovenous malformation of digestive system vessel; Z99.2 Dependence on renal dialysis; Z79.4 Long term (current) use of insulin; B19.20 Unspecified viral hepatitis C without hepatic coma; F32.9 Major depressive disorder, single episode, unspecified; G47.33 Obstructive sleep apnea (adult) (pediatric); I86.4 Gastric varices; E88.09 Other disorders of plasma-protein metabolism, not elsewhere classified; E83.51 Hypocalcemia; R10.12 Left upper quadrant pain; R07.9 Chest pain, unspecified; M25.552 Pain in left hip; M25.551 Pain in right hip; K64.8 Other hemorrhoids; I95.9 Hypotension, unspecified
CPT/HCPCS: 36430; 36569; 36600; 71045; 71046; 74176; 76700; 80048; 80053; 80202; 81001; 82140; 82270; 82550; 82553; 82607; 82728; 82746; 82803; 82962; 83010; 83036; 83605; 83615; 83735; 84100; 84145; 84155; 84165; 84484; 85014; 85018; 85025; 85045; 85049; 85335; 85362; 85378; 85384; 85610; 85651; 85670; 85730; 86644; 86704; 86709; 86803; 86850; 86900; 86901; 86920; 86945; 87040; 87081; 87086; 87340; 88104; 88305; 90935; 92526; 92610; 93005; 93970; 94640; 94660; 94664; 97110; 97116; 97163; 97530; 99217

== ENCOUNTER 2018-04-07 18:15 | Inpatient (IN) | payer BC, MEDICARE ==
[2018-04-07 19:18] LABS: ADD MAN DIFF? NO
[2018-04-07 19:22] LABS: BASOPHILS % 0.4 % (0.0-2.0); EOSINOPHILS # 0.1 10^3/ul (0.0-0.5); EOSINOPHILS % 2.1 % (0.0-7.0); HEMATOCRIT 24.8 % (42.0-52.0); HEMOGLOBIN 7.5 g/dl (14.0-18.0); LYMPHOCYTES # 0.8 10^3/ul (0.8-2.9); LYMPHOCYTES % 17.5 % (15.0-51.0); MEAN CORPUSCULAR HEMOGLOBIN 30.2 pg (29.0-33.0); MEAN CORPUSCULAR HGB CONC 30.2 g/dl (32.0-37.0); MEAN PLATELET VOLUME 12.4 fl (7.4-10.4); MONOCYTE # 0.5 10^3/ul (0.3-0.9); MONOCYTES % 11.2 % (0.0-11.0); NEUTROPHIL # 3.2 10^3/ul (1.6-7.5); NEUTROPHILS % 68.2 % (39.0-77.0); PLATELET COUNT 117 10^3/UL (140-415); RED BLOOD COUNT 2.48 10^6/ul (4.70-6.10); RED CELL DISTRIBUTION WIDTH 20.1 % (11.5-14.5)
[2018-04-07 19:22] LABS: WHITE BLOOD COUNT 4.7 10^3/ul (4.8-10.8)
[2018-04-07] MEDS ORDERED: ONDANSETRON 4 MG INJ IV ×2 (19:30→22:30)
[2018-04-07] MEDS ORDERED: ACETAMINOPHEN 325 MG TAB PO (19:30)
[2018-04-07 19:40] LABS: ALANINE AMINOTRANSFERASE 23 IU/L (13-69); ALBUMIN/GLOBULIN RATIO 0.73; ALKALINE PHOSPHATASE 177 IU/L (42-121); ANION GAP 11 (8-16); ASPARTATE AMINO TRANSFERASE 58 IU/L (15-46); BILIRUBIN,INDIRECT 1.2 mg/dl (0-1.1); BILIRUBIN,TOTAL 1.2 mg/dl (0.2-1.3); BLOOD UREA NITROGEN 35 mg/dl (7-20); CALCIUM 8.1 mg/dl (8.4-10.2); CARBON DIOXIDE 27 mmol/L (21-31); CHLORIDE 102 mmol/L (97-110); CREATININE 2.97 mg/dl (0.61-1.24); GLUCOSE 163 mg/dl (70-220); POTASSIUM 4.5 mmol/L (3.5-5.1); SODIUM 135 mmol/L (135-144); TOTAL PROTEIN 7.1 g/dl (6.1-8.1)
[2018-04-07 19:42] LABS: INR 1.04; PROTIME 13.7 Sec (11.9-14.9); PT RATIO 1.1
[2018-04-07 19:43] LABS: PARTIAL THROMBOPLASTIN TIME 36.7 Sec (25.0-35.0)
[2018-04-07 19:52] LABS: TROPONIN-I 0.029 ng/ml (0.000-0.120)
[2018-04-07] MEDS ORDERED: GLUCOSE GEL 15 GRAM TUBE BUCCAL (22:30)
[2018-04-07] MEDS ORDERED: DEXTROSE 50% 50 ML SYRINGE IV ×2 (22:30)
[2018-04-07] MEDS ORDERED: ACETAMINOPHEN 500 MG TAB PO (22:30)
[2018-04-07] MEDS ORDERED: GLUCAGON 1 MG INJ IM (22:30)
[2018-04-07] MEDS ORDERED: GLUCOSE GEL 15 GRAM TUBE PO ×2 (22:30)
[2018-04-07] MEDS: FUROSEMIDE 40 MG INJ IV (22:32)
[2018-04-07] MEDS: PANTOPRAZOLE (EC) 40 MG TAB PO (22:32)
[2018-04-08] MEDS: ESCITALOPRAM 10 MG TAB PO ×2 (00:15→21:05)
[2018-04-08] MEDS: PROPRANOLOL 10 MG TAB PO ×4 (00:15→21:06)
[2018-04-08 05:37] LABS: ADD MAN DIFF? NO
[2018-04-08 05:46] LABS: WHITE BLOOD COUNT 3.5 10^3/ul (4.8-10.8)
[2018-04-08 05:46] LABS: ABNORMAL IP MESSAGE 1; BASOPHILS % 0.6 % (0.0-2.0); EOSINOPHILS # 0.1 10^3/ul (0.0-0.5); EOSINOPHILS % 2.6 % (0.0-7.0); HEMATOCRIT 24.2 % (42.0-52.0); LYMPHOCYTES # 0.8 10^3/ul (0.8-2.9); LYMPHOCYTES % 22.3 % (15.0-51.0); MEAN CORPUSCULAR HEMOGLOBIN 28.8 pg (29.0-33.0); MEAN CORPUSCULAR HGB CONC 28.9 g/dl (32.0-37.0); MEAN CORPUSCULAR VOLUME 99.6 fl (82.0-101.0); MEAN PLATELET VOLUME 12.4 fl (7.4-10.4); MONOCYTE # 0.3 10^3/ul (0.3-0.9); MONOCYTES % 9.7 % (0.0-11.0); NEUTROPHIL # 2.3 10^3/ul (1.6-7.5); NEUTROPHILS % 64.2 % (39.0-77.0); PLATELET COUNT 114 10^3/UL (140-415); POSITIVE DIFF @See below; RED BLOOD COUNT 2.43 10^6/ul (4.70-6.10)
[2018-04-08 06:16] LABS: ANION GAP 10 (8-16); BLOOD UREA NITROGEN 40 mg/dl (7-20); CALCIUM 7.9 mg/dl (8.4-10.2); CARBON DIOXIDE 29 mmol/L (21-31); CHLORIDE 104 mmol/L (97-110); CREATININE 3.02 mg/dl (0.61-1.24); GLUCOSE 201 mg/dl (70-220); MAGNESIUM 2.1 mg/dl (1.7-2.5); POTASSIUM 3.7 mmol/L (3.5-5.1); SODIUM 139 mmol/L (135-144)
[2018-04-08] MEDS: PANTOPRAZOLE (EC) 40 MG TAB PO ×2 (06:22→18:27)
[2018-04-08] MEDS: FUROSEMIDE 40 MG TAB PO ×2 (06:24→21:06)
[2018-04-08] MEDS: INSULIN ASPART [NOVOLOG] 3 ML PEN SC ×4 (07:54→21:00)
[2018-04-08] MEDS ORDERED: PROPRANOLOL 10 MG TAB PO (09:00)
[2018-04-08 09:48] LABS: ANISOCYTOSIS 2+ (0-0); BAND NEUTROPHILS % (M) 2 % (0-4); EOSINOPHILS % (M) 3 % (0-7); GIANT THROMBO% (M) 1 % (0-0); HYPOCHROMASIA 1+ (0-0); LYMPHOCYTES #M 0.4 10^3/ul (0.8-2.9); LYMPHOCYTES % (M) 14 % (15-51); MICROCYTOSIS 1+ (0-0); MONOCYTE #M 0.3 10^3/ul (0.3-0.9); MONOCYTES % (M) 9 % (0-11); MYELOCYTES % (M) 1 % (0-0); PLATELET ESTIMATE DECREASED; POIKILOCYTOSIS 2+ (0-0); POLYCHROMASIA 3+ (0-0); PROMYELOCYTES % (M) 1 % (0-0); SEG NEUT #M 2.5 10^3/ul (1.6-7.5); SEGMENTED NEUTROPHILS (M) % 70 % (39-77); SMUDGE%M 13 % (0-0)
[2018-04-08 10:36] LABS: IMMEDIATE SPIN CROSSMATCH 1 2
[2018-04-08 13:53] LABS: OCCULT BLOOD STOOL POSITIVE (NEGATIVE)
[2018-04-08 16:53] LABS: HEPATITIS B SURFACE ANTIGEN NEGATIVE (NEGATIVE)
[2018-04-08] MEDS ORDERED: ESCITALOPRAM 10 MG TAB PO (21:00)
[2018-04-08] MEDS: ATORVASTATIN 10 MG TAB PO (21:06)
[2018-04-08] MEDS: INSULIN GLARGINE [LANTus] (100 UNITS/ML) SYG SC (21:12)
[2018-04-09] MEDS: PANTOPRAZOLE (EC) 40 MG TAB PO ×2 (05:56→17:52)
[2018-04-09] MEDS: FUROSEMIDE 40 MG TAB PO ×2 (05:56→17:50)
[2018-04-09 06:01] LABS: ADD MAN DIFF? NO
[2018-04-09 06:06] LABS: BASOPHILS % 0.5 % (0.0-2.0); EOSINOPHILS # 0.1 10^3/ul (0.0-0.5); EOSINOPHILS % 1.5 % (0.0-7.0); HEMATOCRIT 29.3 % (42.0-52.0); LYMPHOCYTES # 0.8 10^3/ul (0.8-2.9); LYMPHOCYTES % 19.4 % (15.0-51.0); MEAN CORPUSCULAR HEMOGLOBIN 29.8 pg (29.0-33.0); MEAN CORPUSCULAR HGB CONC 30.7 g/dl (32.0-37.0); MEAN PLATELET VOLUME 11.7 fl (7.4-10.4); MONOCYTE # 0.5 10^3/ul (0.3-0.9); MONOCYTES % 11.8 % (0.0-11.0); NEUTROPHIL # 2.6 10^3/ul (1.6-7.5); NEUTROPHILS % 66.3 % (39.0-77.0); PLATELET COUNT 103 10^3/UL (140-415); RED BLOOD COUNT 3.02 10^6/ul (4.70-6.10); RED CELL DISTRIBUTION WIDTH 19.9 % (11.5-14.5)
[2018-04-09 06:06] LABS: WHITE BLOOD COUNT 3.9 10^3/ul (4.8-10.8)
[2018-04-09 06:28] LABS: ANION GAP 10 (8-16); BLOOD UREA NITROGEN 28 mg/dl (7-20); CALCIUM 7.9 mg/dl (8.4-10.2); CARBON DIOXIDE 30 mmol/L (21-31); CHLORIDE 104 mmol/L (97-110); CREATININE 2.69 mg/dl (0.61-1.24); GLUCOSE 164 mg/dl (70-220); MAGNESIUM 1.9 mg/dl (1.7-2.5); POTASSIUM 3.5 mmol/L (3.5-5.1); SODIUM 140 mmol/L (135-144)
[2018-04-09] MEDS: PROPRANOLOL 10 MG TAB PO ×3 (08:06→20:56)
[2018-04-09] MEDS: INSULIN ASPART [NOVOLOG] 3 ML PEN SC ×4 (08:10→21:00)
[2018-04-09] MEDS: POTASSIUM CHLORIDE (SR) 20 MEQ TAB PO (13:44)
[2018-04-09] MEDS: ESCITALOPRAM 10 MG TAB PO (20:56)
[2018-04-09] MEDS: ATORVASTATIN 10 MG TAB PO (20:56)
[2018-04-09] MEDS: INSULIN GLARGINE [LANTus] (100 UNITS/ML) SYG SC (21:11)
[2018-04-10] MEDS: FUROSEMIDE 40 MG TAB PO ×2 (05:43→18:02)
[2018-04-10] MEDS: PANTOPRAZOLE (EC) 40 MG TAB PO ×2 (05:43→18:02)
[2018-04-10 06:17] LABS: ADD MAN DIFF? NO
[2018-04-10 06:22] LABS: WHITE BLOOD COUNT 3.8 10^3/ul (4.8-10.8)
[2018-04-10 06:22] LABS: BASOPHILS % 0.5 % (0.0-2.0); EOSINOPHILS % 0.8 % (0.0-7.0); HEMATOCRIT 29.1 % (42.0-52.0); HEMOGLOBIN 8.9 g/dl (14.0-18.0); LYMPHOCYTES # 0.8 10^3/ul (0.8-2.9); LYMPHOCYTES % 22.2 % (15.0-51.0); MEAN CORPUSCULAR HEMOGLOBIN 29.8 pg (29.0-33.0); MEAN CORPUSCULAR HGB CONC 30.6 g/dl (32.0-37.0); MEAN CORPUSCULAR VOLUME 97.3 fl (82.0-101.0); MEAN PLATELET VOLUME 12.4 fl (7.4-10.4); MONOCYTE # 0.4 10^3/ul (0.3-0.9); MONOCYTES % 10.6 % (0.0-11.0); NEUTROPHIL # 2.5 10^3/ul (1.6-7.5); NEUTROPHILS % 65.4 % (39.0-77.0); PLATELET COUNT 108 10^3/UL (140-415); RED BLOOD COUNT 2.99 10^6/ul (4.70-6.10); RED CELL DISTRIBUTION WIDTH 19.2 % (11.5-14.5)
[2018-04-10 06:43] LABS: ANION GAP 8 (8-16); BLOOD UREA NITROGEN 39 mg/dl (7-20); CALCIUM 7.9 mg/dl (8.4-10.2); CARBON DIOXIDE 30 mmol/L (21-31); CHLORIDE 106 mmol/L (97-110); CREATININE 3.33 mg/dl (0.61-1.24); GLUCOSE 122 mg/dl (70-220); SODIUM 140 mmol/L (135-144)
[2018-04-10] MEDS: PROPRANOLOL 10 MG TAB PO ×3 (08:02→21:42)
[2018-04-10] MEDS: INSULIN ASPART [NOVOLOG] 3 ML PEN SC ×4 (08:15→22:00)
[2018-04-10] MEDS: ATORVASTATIN 10 MG TAB PO (21:42)
[2018-04-10] MEDS: ESCITALOPRAM 10 MG TAB PO (21:42)
[2018-04-10] MEDS: INSULIN GLARGINE [LANTus] (100 UNITS/ML) SYG SC (21:59)
[2018-04-11] MEDS: PANTOPRAZOLE (EC) 40 MG TAB PO (06:20)
[2018-04-11] MEDS: FUROSEMIDE 40 MG TAB PO (06:27)
[2018-04-11] MEDS: PROPRANOLOL 10 MG TAB PO ×2 (08:19→12:41)
[2018-04-11] MEDS: INSULIN ASPART [NOVOLOG] 3 ML PEN SC ×2 (08:23→12:15)
[2018-04-11 10:24] LABS: ADD MAN DIFF? NO
[2018-04-11 10:27] LABS: WHITE BLOOD COUNT 3.6 10^3/ul (4.8-10.8)
[2018-04-11 10:27] LABS: ABNORMAL IP MESSAGE 1; BASOPHILS % 0.3 % (0.0-2.0); EOSINOPHILS # 0.1 10^3/ul (0.0-0.5); EOSINOPHILS % 1.9 % (0.0-7.0); HEMATOCRIT 27.2 % (42.0-52.0); HEMOGLOBIN 8.5 g/dl (14.0-18.0); LYMPHOCYTES # 0.7 10^3/ul (0.8-2.9); MEAN CORPUSCULAR HEMOGLOBIN 30.2 pg (29.0-33.0); MEAN CORPUSCULAR HGB CONC 31.3 g/dl (32.0-37.0); MEAN CORPUSCULAR VOLUME 96.8 fl (82.0-101.0); MEAN PLATELET VOLUME 11.4 fl (7.4-10.4); MONOCYTE # 0.4 10^3/ul (0.3-0.9); MONOCYTES % 12.2 % (0.0-11.0); NEUTROPHIL # 2.3 10^3/ul (1.6-7.5); PLATELET COUNT 91 10^3/UL (140-415); POSITIVE DIFF @See below; RED BLOOD COUNT 2.81 10^6/ul (4.70-6.10); RED CELL DISTRIBUTION WIDTH 18.3 % (11.5-14.5)
[2018-04-11 10:48] LABS: ANION GAP 11 (8-16); BLOOD UREA NITROGEN 49 mg/dl (7-20); CALCIUM 7.8 mg/dl (8.4-10.2); CARBON DIOXIDE 26 mmol/L (21-31); CHLORIDE 105 mmol/L (97-110); CREATININE 3.64 mg/dl (0.61-1.24); GLUCOSE 230 mg/dl (70-220); POTASSIUM 4.1 mmol/L (3.5-5.1); SODIUM 138 mmol/L (135-144)
[2018-04-11] MEDS ORDERED: INSULIN GLARGINE [LANTus] (100 UNITS/ML) SYG SC (21:00)
== END 2018-04-11 16:50 | disposition home or self-care (01) | DRG 682 ==
LOC: E/R 18:15 → MS2 19:14
PROC: 5A1D70Z Performance of Urinary Filtration, Intermittent, Less than 6 Hours Per Day (ICD-10-PCS; principal; 2018-04-08)
DX: I13.11 Hypertensive heart and chronic kidney disease without heart failure, with stage 5 chronic kidney disease, or end stage renal disease (principal); N18.6 End stage renal disease; K76.6 Portal hypertension; E11.22 Type 2 diabetes mellitus with diabetic chronic kidney disease; I50.9 Heart failure, unspecified; K73.9 Chronic hepatitis, unspecified; G47.33 Obstructive sleep apnea (adult) (pediatric); D69.6 Thrombocytopenia, unspecified; D64.9 Anemia, unspecified; K74.60 Unspecified cirrhosis of liver; E66.01 Morbid (severe) obesity due to excess calories; Z79.4 Long term (current) use of insulin; Z99.2 Dependence on renal dialysis; Z87.891 Personal history of nicotine dependence
CPT/HCPCS: 36415; 36430; 71045; 71046; 80048; 80053; 82270; 82962; 83735; 84484; 85025; 85610; 85730; 86850; 86900; 86901; 86920; 87081; 87340; 90935; 93005; 99285-25

== ENCOUNTER → 2018-05-29 | Outpatient (CLI) | payer BC, MEDICARE ==
[2018-05-29 09:33] LABS: ADD MAN DIFF? NO
[2018-05-29 09:36] LABS: WHITE BLOOD COUNT 4.9 10^3/ul (4.8-10.8)
[2018-05-29 09:36] LABS: BASOPHILS % 0.6 % (0.0-2.0); EOSINOPHILS # 0.3 10^3/ul (0.0-0.5); EOSINOPHILS % 5.3 % (0.0-7.0); HEMATOCRIT 32.8 % (42.0-52.0); HEMOGLOBIN 10.4 g/dl (14.0-18.0); LYMPHOCYTES % 19.8 % (15.0-51.0); MEAN CORPUSCULAR HEMOGLOBIN 29.1 pg (29.0-33.0); MEAN CORPUSCULAR HGB CONC 31.7 g/dl (32.0-37.0); MEAN CORPUSCULAR VOLUME 91.9 fl (82.0-101.0); MEAN PLATELET VOLUME 12.5 fl (7.4-10.4); MONOCYTE # 0.4 10^3/ul (0.3-0.9); MONOCYTES % 8.6 % (0.0-11.0); NEUTROPHIL # 3.2 10^3/ul (1.6-7.5); NEUTROPHILS % 65.3 % (39.0-77.0); PLATELET COUNT 124 10^3/UL (140-415); RED BLOOD COUNT 3.57 10^6/ul (4.70-6.10); RED CELL DISTRIBUTION WIDTH 16.2 % (11.5-14.5)
[2018-05-29 09:54] LABS: HEMOGLOBIN A1C 6.7 % (0-5.9)
[2018-05-29 09:57] LABS: ALANINE AMINOTRANSFERASE 21 IU/L (13-69); ALBUMIN 3.4 g/dl (3.3-4.9); ALBUMIN/GLOBULIN RATIO 0.77; ALKALINE PHOSPHATASE 202 IU/L (42-121); ANION GAP 13 (8-16); ASPARTATE AMINO TRANSFERASE 52 IU/L (15-46); BILIRUBIN,INDIRECT 0.9 mg/dl (0-1.1); BILIRUBIN,TOTAL 0.9 mg/dl (0.2-1.3); BLOOD UREA NITROGEN 102 mg/dl (7-20); CALCIUM 8.4 mg/dl (8.4-10.2); CARBON DIOXIDE 25 mmol/L (21-31); CHLORIDE 106 mmol/L (97-110); CHOL/HDL RATIO 2.3 RATIO; CHOLESTEROL 128 mg/dl (100-200); CREATININE 4.73 mg/dl (0.61-1.24); GLUCOSE 95 mg/dl (70-220); HDL CHOLESTEROL 55 mg/dl (30-78); LDL CHOLESTEROL,CALCULATED 60 mg/dl; POTASSIUM 4.9 mmol/L (3.5-5.1); SODIUM 139 mmol/L (135-144); TOTAL PROTEIN 7.8 g/dl (6.1-8.1); TRIGLYCERIDES 64 mg/dl (0-149)
== END | disposition home or self-care (01) ==
LOC: LAB 09:11
DX: E11.22 Type 2 diabetes mellitus with diabetic chronic kidney disease (principal); N18.9 Chronic kidney disease, unspecified; E78.5 Hyperlipidemia, unspecified
CPT/HCPCS: 80053; 80061; 83036; 85025

== ENCOUNTER → 2018-07-02 | Outpatient (CLI) | payer BC, MEDICARE | END | disposition home or self-care (01) | LOC: U/S 08:36 | DX: K74.60 Unspecified cirrhosis of liver (principal) | CPT/HCPCS: 76705 ==

== ENCOUNTER → 2018-09-03 | Outpatient (CLI) | payer BC ==
[2018-09-03 08:38] LABS: ADD MAN DIFF? NO
[2018-09-03 09:05] LABS: WHITE BLOOD COUNT 5.1 10^3/ul (4.8-10.8)
[2018-09-03 09:05] LABS: ABNORMAL IP MESSAGE 1; BASOPHILS % 0.6 % (0.0-2.0); EOSINOPHILS # 0.3 10^3/ul (0.0-0.5); EOSINOPHILS % 6.4 % (0.0-7.0); HEMATOCRIT 33.3 % (42.0-52.0); HEMOGLOBIN 10.8 g/dl (14.0-18.0); LYMPHOCYTES % 20.1 % (15.0-51.0); MEAN CORPUSCULAR HEMOGLOBIN 29.5 pg (29.0-33.0); MEAN CORPUSCULAR HGB CONC 32.4 g/dl (32.0-37.0); MONOCYTE # 0.5 10^3/ul (0.3-0.9); MONOCYTES % 10.3 % (0.0-11.0); NEUTROPHIL # 3.2 10^3/ul (1.6-7.5); NEUTROPHILS % 62.2 % (39.0-77.0); PLATELET COUNT 96 10^3/UL (140-415); POSITIVE DIFF @See below; RED BLOOD COUNT 3.66 10^6/ul (4.70-6.10); RED CELL DISTRIBUTION WIDTH 16.5 % (11.5-14.5)
[2018-09-03 09:20] LABS: ADD UMIC YES; UR ASCORBIC ACID NEGATIVE (NEGATIVE); UR BACTERIA FEW /HPF (NONE SEEN); UR BILIRUBIN (Dip) NEGATIVE (NEGATIVE); UR BLOOD (Dip) 2+ mg/dL (NEGATIVE); UR CLARITY CLEAR (CLEAR); UR COLOR YELLOW (YELLOW); UR GLUCOSE (Dip) NEGATIVE (NEGATIVE); UR KETONES (Dip) NEGATIVE (NEGATIVE); UR LEUKOCYTE ESTERASE (Dip) 1+ Leu/ul (NEGATIVE); UR NITRITE (Dip) NEGATIVE (NEGATIVE); UR RBC 66 /HPF (0-5); UR SPECIFIC GRAVITY (Dip) 1.013 (1.003-1.030); UR TOTAL PROTEIN (Dip) 2+ mg/dl (NEGATIVE); UR UROBILINOGEN (Dip) 2+ mg/dL (NEGATIVE); UR WBC 71 /HPF (0-5)
[2018-09-03 09:38] LABS: ALANINE AMINOTRANSFERASE 20 IU/L (13-69); ALBUMIN 3.9 g/dl (3.3-4.9); ALBUMIN/GLOBULIN RATIO 1.02; ALKALINE PHOSPHATASE 197 IU/L (42-121); ANION GAP 13 (5-13); ASPARTATE AMINO TRANSFERASE 33 IU/L (15-46); BILIRUBIN,INDIRECT 0.9 mg/dl (0-1.1); BILIRUBIN,TOTAL 0.9 mg/dl (0.2-1.3); BLOOD UREA NITROGEN 66 mg/dl (7-20); CARBON DIOXIDE 29 mmol/L (21-31); CHLORIDE 98 mmol/L (97-110); CHOL/HDL RATIO 2.8 RATIO; CHOLESTEROL 134 mg/dl (100-200); CREATININE 4.06 mg/dl (0.61-1.24); Estimated GFR 15 mL/min (>60); GLUCOSE 108 mg/dl (70-220); HDL CHOLESTEROL 47 mg/dl (30-78); LDL CHOLESTEROL,CALCULATED 72 mg/dl; POTASSIUM 4.1 mmol/L (3.5-5.1); SODIUM 140 mmol/L (135-144); TOTAL PROTEIN 7.7 g/dl (6.1-8.1); TRIGLYCERIDES 73 mg/dl (0-149)
[2018-09-03 09:42] LABS: HEMOGLOBIN A1C 7.2 % (0-5.9)
== END | disposition home or self-care (01) ==
LOC: LAB 07:51
DX: N39.0 Urinary tract infection, site not specified (principal); N18.9 Chronic kidney disease, unspecified; E11.8 Type 2 diabetes mellitus with unspecified complications
CPT/HCPCS: 80053; 80061; 81001; 83036; 85025; 87086

== ENCOUNTER 2018-10-29 07:30 | Inpatient (IN) | payer BC ==
[2018-10-29] MEDS: morphine 4 MG/ML VIAL IV ×2 (08:17→09:00)
[2018-10-29] MEDS: NITROGLYCERIN 2% 1 GM OINT PKT TD (08:17)
[2018-10-29] MEDS: ASPIRIN 81 MG TAB PO (08:17)
[2018-10-29] MEDS: ONDANSETRON 4 MG INJ IV (08:17)
[2018-10-29 08:19] LABS: ADD MAN DIFF? NO
[2018-10-29 08:31] LABS: ABNORMAL IP MESSAGE 1; BASOPHILS % 0.3 % (0.0-2.0); EOSINOPHILS # 0.3 10^3/ul (0.0-0.5); EOSINOPHILS % 4.5 % (0.0-7.0); HEMATOCRIT 20.5 % (42.0-52.0); LYMPHOCYTES # 0.9 10^3/ul (0.8-2.9); LYMPHOCYTES % 14.6 % (15.0-51.0); MEAN CORPUSCULAR HEMOGLOBIN 31.6 pg (29.0-33.0); MEAN CORPUSCULAR HGB CONC 31.7 g/dl (32.0-37.0); MEAN CORPUSCULAR VOLUME 99.5 fl (82.0-101.0); MEAN PLATELET VOLUME 12.3 fl (7.4-10.4); MONOCYTE # 0.5 10^3/ul (0.3-0.9); MONOCYTES % 8.5 % (0.0-11.0); NEUTROPHIL # 4.3 10^3/ul (1.6-7.5); NEUTROPHILS % 71.1 % (39.0-77.0); PLATELET COUNT 64 10^3/UL (140-415); POSITIVE DIFF @See below; RED BLOOD COUNT 2.06 10^6/ul (4.70-6.10); RED CELL DISTRIBUTION WIDTH 20.4 % (11.5-14.5)
[2018-10-29 08:37] LABS: HEMOGLOBIN 6.5 g/dl (14.0-18.0)
[2018-10-29] MEDS: SOD CHLORIDE 0.9% 0 ML IV (08:40)
[2018-10-29 08:48] LABS: INR 1.02; PROTIME 13.5 Sec (11.9-14.9); PT RATIO 1.1
[2018-10-29 08:49] LABS: PARTIAL THROMBOPLASTIN TIME 38.9 Sec (23.0-35.0)
[2018-10-29 08:54] LABS: ANION GAP 8 (5-13); BLOOD UREA NITROGEN 58 mg/dl (7-20); CALCIUM 9.1 mg/dl (8.4-10.2); CARBON DIOXIDE 31 mmol/L (21-31); CHLORIDE 98 mmol/L (97-110); CREATININE 4.61 mg/dl (0.61-1.24); Estimated GFR 13 mL/min (>60); GLUCOSE 216 mg/dl (70-220); POTASSIUM 4.2 mmol/L (3.5-5.1); SODIUM 137 mmol/L (135-144)
[2018-10-29] MEDS ORDERED: ONDANSETRON 4 MG INJ IV ×2 (09:30→14:30)
[2018-10-29] MEDS ORDERED: ACETAMINOPHEN 325 MG TAB PO ×2 (09:30→14:30)
[2018-10-29 10:17] LABS: ANISOCYTOSIS 1+ (0-0); BAND NEUTROPHILS #M 0.3 10^3/ul (0.0-0.6); BAND NEUTROPHILS % (M) 5 % (0-4); BASOPHILS % (M) 1 % (0-2); EOSINOPHILS % (M) 8 % (0-7); ERYTHROBLAST% (NRBC) (M) 1 % (0-0); LYMPHOCYTES #M 0.7 10^3/ul (0.8-2.9); LYMPHOCYTES % (M) 13 % (15-51); MONOCYTE #M 0.1 10^3/ul (0.3-0.9); MONOCYTES % (M) 2 % (0-11); MYELOCYTES % (M) 1 % (0-0); PLATELET ESTIMATE DECREASED; POLYCHROMASIA 2+ (0-0); SEG NEUT #M 4.3 10^3/ul (1.6-7.5); SEGMENTED NEUTROPHILS (M) % 71 % (39-77); SMUDGE%M 5 % (0-0)
[2018-10-29] MEDS ORDERED: DEXTROSE 50% 50 ML SYRINGE IV ×2 (15:00)
[2018-10-29] MEDS ORDERED: GLUCAGON 1 MG INJ IM (15:00)
[2018-10-29] MEDS ORDERED: GLUCOSE GEL 15 GRAM TUBE BUCCAL (15:00)
[2018-10-29] MEDS ORDERED: GLUCOSE GEL 15 GRAM TUBE PO ×2 (15:00)
[2018-10-29] MEDS: SOD CHLORIDE 0.45% 1,000 ML IV (15:00)
[2018-10-29 15:08] LABS: WHITE BLOOD COUNT 4.8 10^3/ul (4.8-10.8)
[2018-10-29 15:08] LABS: ABNORMAL IP MESSAGE 1; ADD MAN DIFF? NO; BASOPHILS % 0.4 % (0.0-2.0); EOSINOPHILS # 0.3 10^3/ul (0.0-0.5); EOSINOPHILS % 5.7 % (0.0-7.0); HEMATOCRIT 20.7 % (42.0-52.0); LYMPHOCYTES # 0.7 10^3/ul (0.8-2.9); LYMPHOCYTES % 15.4 % (15.0-51.0); MEAN CORPUSCULAR HEMOGLOBIN 31.1 pg (29.0-33.0); MEAN CORPUSCULAR HGB CONC 31.4 g/dl (32.0-37.0); MEAN PLATELET VOLUME 12.7 fl (7.4-10.4); MONOCYTE # 0.4 10^3/ul (0.3-0.9); MONOCYTES % 8.6 % (0.0-11.0); NEUTROPHIL # 3.3 10^3/ul (1.6-7.5); NEUTROPHILS % 69.1 % (39.0-77.0); PLATELET COUNT 57 10^3/UL (140-415); POSITIVE DIFF @See below; RED BLOOD COUNT 2.09 10^6/ul (4.70-6.10); RED CELL DISTRIBUTION WIDTH 20.5 % (11.5-14.5)
[2018-10-29 15:17] LABS: HEMOGLOBIN 6.5 g/dl (14.0-18.0)
[2018-10-29 15:26] LABS: CREATINE KINASE 172 IU/L (23-200)
[2018-10-29 15:39] LABS: CK INDEX 0.8; CK-MB 1.46 ng/ml (0.0-2.4); TROPONIN-I 0.085 ng/ml (0.000-0.120)
[2018-10-29] MEDS: INSULIN ASPART [NOVOLOG] 3 ML PEN SC ×2 (17:35→21:00)
[2018-10-29 18:11] LABS: HEPATITIS B SURFACE ANTIGEN NEGATIVE (NEGATIVE)
[2018-10-29 20:41] LABS: CREATINE KINASE 169 IU/L (23-200)
[2018-10-29 20:54] LABS: CK INDEX 0.9; TROPONIN-I 0.093 ng/ml (0.000-0.120)
[2018-10-29] MEDS ORDERED: INSULIN GLARGINE [LANTus] (100 UNITS/ML) SYG SC (21:00)
[2018-10-29 21:11] LABS: IMMEDIATE SPIN CROSSMATCH 1 3
[2018-10-29] MEDS: ESCITALOPRAM 10 MG TAB PO (21:18)
[2018-10-29] MEDS: SUCRALFATE (100 MG/ML) 10ML CUP PO (21:18)
[2018-10-29] MEDS: traMADol 50 MG TAB PO (21:18)
[2018-10-29] MEDS: DEXTROSE 5%-0.45% NACL 1,000 ML IV (21:21)
[2018-10-29] MEDS: morphine 2 MG INJ IV (22:28)
[2018-10-30] MEDS: ACCU-CHEK XX ×2 (02:00→21:18)
[2018-10-30] MEDS: morphine 2 MG INJ IV ×3 (04:46→23:41)
[2018-10-30 05:29] LABS: ADD MAN DIFF? NO
[2018-10-30 05:45] LABS: WHITE BLOOD COUNT 4.7 10^3/ul (4.8-10.8)
[2018-10-30 05:45] LABS: ABNORMAL IP MESSAGE 1; BASOPHILS % 0.2 % (0.0-2.0); EOSINOPHILS # 0.3 10^3/ul (0.0-0.5); EOSINOPHILS % 5.7 % (0.0-7.0); HEMATOCRIT 24.3 % (42.0-52.0); HEMOGLOBIN 7.9 g/dl (14.0-18.0); LYMPHOCYTES # 0.6 10^3/ul (0.8-2.9); LYMPHOCYTES % 11.8 % (15.0-51.0); MEAN CORPUSCULAR HEMOGLOBIN 31.3 pg (29.0-33.0); MEAN CORPUSCULAR HGB CONC 32.5 g/dl (32.0-37.0); MEAN CORPUSCULAR VOLUME 96.4 fl (82.0-101.0); MEAN PLATELET VOLUME 10.6 fl (7.4-10.4); MONOCYTE # 0.3 10^3/ul (0.3-0.9); MONOCYTES % 6.5 % (0.0-11.0); NEUTROPHIL # 3.6 10^3/ul (1.6-7.5); POSITIVE DIFF @See below; RED BLOOD COUNT 2.52 10^6/ul (4.70-6.10); RED CELL DISTRIBUTION WIDTH 19.7 % (11.5-14.5)
[2018-10-30] MEDS: PANTOPRAZOLE 40 MG INJ IV ×2 (05:48→20:35)
[2018-10-30 06:10] LABS: PHOSPHORUS 4.1 mg/dl (2.5-4.9)
[2018-10-30 06:10] LABS: ALANINE AMINOTRANSFERASE 28 IU/L (13-69); ALBUMIN 2.9 g/dl (3.3-4.9); ALKALINE PHOSPHATASE 101 IU/L (42-121); ASPARTATE AMINO TRANSFERASE 151 IU/L (15-46); BILIRUBIN,TOTAL 2.1 mg/dl (0.2-1.3); CHOL/HDL RATIO 3.3 RATIO; CHOLESTEROL 107 mg/dl (100-200); HDL CHOLESTEROL 32 mg/dl (30-78); LDL CHOLESTEROL,CALCULATED 54 mg/dl; MAGNESIUM 2.1 mg/dl (1.7-2.5); TOTAL PROTEIN 6.7 g/dl (6.1-8.1); TRIGLYCERIDES 107 mg/dl (0-149)
[2018-10-30 06:13] LABS: ANION GAP 7 (5-13); BLOOD UREA NITROGEN 36 mg/dl (7-20); CALCIUM 8.3 mg/dl (8.4-10.2); CARBON DIOXIDE 31 mmol/L (21-31); CHLORIDE 96 mmol/L (97-110); CREATININE 3.19 mg/dl (0.61-1.24); Estimated GFR 20 mL/min (>60); GLUCOSE 191 mg/dl (70-220); POTASSIUM 3.9 mmol/L (3.5-5.1); SODIUM 134 mmol/L (135-144)
[2018-10-30 06:36] LABS: PLATELET COUNT 42 10^3/UL (140-415)
[2018-10-30] MEDS: INSULIN ASPART [NOVOLOG] 3 ML PEN SC ×5 (08:02→20:35)
[2018-10-30] MEDS: SUCRALFATE (100 MG/ML) 10ML CUP PO ×3 (08:03→20:35)
[2018-10-30] MEDS: FUROSEMIDE 40 MG TAB PO (08:03)
[2018-10-30] MEDS: CHOLECALCIFEROL 1,000 UNIT TAB PO (08:03)
[2018-10-30 10:29] LABS: HEMATOCRIT 24.9 % (42.0-52.0)
[2018-10-30 10:47] LABS: PHOSPHORUS 4.6 mg/dl (2.5-4.9)
[2018-10-30 11:02] LABS: AMMONIA 40 umol/l (9-30)
[2018-10-30] MEDS ORDERED: ONDANSETRON 4 MG INJ IV (11:30)
[2018-10-30] MEDS: PROPOFOL 20 ML (12:05)
[2018-10-30] MEDS: FENTAnyl 50 MCG/ML VIAL (12:05)
[2018-10-30] MEDS: DEXTROSE 5%-0.45% NACL 1,000 ML IV (13:12)
[2018-10-30] MEDS: EPOETIN 10000 UNITS/1 ML INJ (ESRD) SC (17:25)
[2018-10-30 18:21] LABS: HEMATOCRIT 26.8 % (42.0-52.0); HEMOGLOBIN 8.7 g/dl (14.0-18.0)
[2018-10-30] MEDS: ESCITALOPRAM 10 MG TAB PO (20:36)
[2018-10-31 00:42] LABS: HEMOGLOBIN 7.9 g/dl (14.0-18.0)
[2018-10-31 06:04] LABS: ADD MAN DIFF? NO
[2018-10-31 06:12] LABS: ABNORMAL IP MESSAGE 1; BASOPHILS % 0.5 % (0.0-2.0); EOSINOPHILS # 0.3 10^3/ul (0.0-0.5); EOSINOPHILS % 7.1 % (0.0-7.0); HEMATOCRIT 25.2 % (42.0-52.0); HEMOGLOBIN 8.1 g/dl (14.0-18.0); LYMPHOCYTES # 0.6 10^3/ul (0.8-2.9); LYMPHOCYTES % 16.1 % (15.0-51.0); MEAN CORPUSCULAR HEMOGLOBIN 30.9 pg (29.0-33.0); MEAN CORPUSCULAR HGB CONC 32.1 g/dl (32.0-37.0); MEAN CORPUSCULAR VOLUME 96.2 fl (82.0-101.0); MEAN PLATELET VOLUME 10.8 fl (7.4-10.4); MONOCYTE # 0.4 10^3/ul (0.3-0.9); MONOCYTES % 10.8 % (0.0-11.0); NEUTROPHIL # 2.5 10^3/ul (1.6-7.5); NEUTROPHILS % 64.7 % (39.0-77.0); PLATELET COUNT 44 10^3/UL (140-415); POSITIVE DIFF @See below; RED BLOOD COUNT 2.62 10^6/ul (4.70-6.10); RED CELL DISTRIBUTION WIDTH 19.4 % (11.5-14.5)
[2018-10-31 06:12] LABS: WHITE BLOOD COUNT 3.8 10^3/ul (4.8-10.8)
[2018-10-31 06:40] LABS: MAGNESIUM 2.2 mg/dl (1.7-2.5)
[2018-10-31 07:00] LABS: ALANINE AMINOTRANSFERASE 33 IU/L (13-69); ALBUMIN 3.1 g/dl (3.3-4.9); ALBUMIN/GLOBULIN RATIO 0.83; ALKALINE PHOSPHATASE 113 IU/L (42-121); ANION GAP 6 (5-13); ASPARTATE AMINO TRANSFERASE 155 IU/L (15-46); BLOOD UREA NITROGEN 50 mg/dl (7-20); CALCIUM 8.1 mg/dl (8.4-10.2); CARBON DIOXIDE 31 mmol/L (21-31); CHLORIDE 97 mmol/L (97-110); CREATININE 3.91 mg/dl (0.61-1.24); Estimated GFR 16 mL/min (>60); GLUCOSE 130 mg/dl (70-220); SODIUM 134 mmol/L (135-144); TOTAL PROTEIN 6.8 g/dl (6.1-8.1)
[2018-10-31] MEDS: CHOLECALCIFEROL 1,000 UNIT TAB PO (08:07)
[2018-10-31] MEDS: SUCRALFATE (100 MG/ML) 10ML CUP PO ×3 (08:08→20:53)
[2018-10-31] MEDS: FUROSEMIDE 40 MG TAB PO (08:08)
[2018-10-31] MEDS: PANTOPRAZOLE 40 MG INJ IV ×2 (08:08→20:53)
[2018-10-31] MEDS: INSULIN ASPART [NOVOLOG] 3 ML PEN SC ×4 (08:25→20:56)
[2018-10-31] MEDS: LACTULOSE 30ML CUP PO (20:53)
[2018-10-31] MEDS: ESCITALOPRAM 10 MG TAB PO (20:53)
[2018-10-31] MEDS: ACCU-CHEK XX (21:01)
[2018-10-31 22:13] LABS: HEMATOCRIT 25.6 % (42.0-52.0); HEMOGLOBIN 8.4 g/dl (14.0-18.0)
[2018-11-01] MEDS: INSULIN ASPART [NOVOLOG] 3 ML PEN SC ×4 (07:38→21:14)
[2018-11-01] MEDS: CHOLECALCIFEROL 1,000 UNIT TAB PO (08:09)
[2018-11-01] MEDS: FUROSEMIDE 40 MG TAB PO (08:10)
[2018-11-01] MEDS: SUCRALFATE (100 MG/ML) 10ML CUP PO ×3 (08:10→20:33)
[2018-11-01] MEDS: PANTOPRAZOLE 40 MG INJ IV ×2 (08:11→20:33)
[2018-11-01 09:44] LABS: ADD MAN DIFF? NO
[2018-11-01 09:49] LABS: ABNORMAL IP MESSAGE 1; BASOPHILS % 0.3 % (0.0-2.0); EOSINOPHILS # 0.2 10^3/ul (0.0-0.5); EOSINOPHILS % 6.4 % (0.0-7.0); HEMATOCRIT 24.2 % (42.0-52.0); HEMOGLOBIN 7.9 g/dl (14.0-18.0); LYMPHOCYTES # 0.5 10^3/ul (0.8-2.9); LYMPHOCYTES % 18.2 % (15.0-51.0); MEAN CORPUSCULAR HGB CONC 32.6 g/dl (32.0-37.0); MEAN CORPUSCULAR VOLUME 94.9 fl (82.0-101.0); MEAN PLATELET VOLUME 10.4 fl (7.4-10.4); MONOCYTE # 0.4 10^3/ul (0.3-0.9); MONOCYTES % 12.8 % (0.0-11.0); NEUTROPHIL # 1.8 10^3/ul (1.6-7.5); PLATELET COUNT 42 10^3/UL (140-415); POSITIVE DIFF @See below; RED BLOOD COUNT 2.55 10^6/ul (4.70-6.10); RED CELL DISTRIBUTION WIDTH 18.5 % (11.5-14.5)
[2018-11-01 10:10] LABS: ALANINE AMINOTRANSFERASE 22 IU/L (13-69); ALBUMIN 3.3 g/dl (3.3-4.9); ALBUMIN/GLOBULIN RATIO 0.84; ALKALINE PHOSPHATASE 125 IU/L (42-121); ANION GAP 9 (5-13); ASPARTATE AMINO TRANSFERASE 241 IU/L (15-46); BILIRUBIN,INDIRECT 3.1 mg/dl (0-1.1); BILIRUBIN,TOTAL 3.4 mg/dl (0.2-1.3); BLOOD UREA NITROGEN 41 mg/dl (7-20); CALCIUM 8.5 mg/dl (8.4-10.2); CARBON DIOXIDE 28 mmol/L (21-31); CHLORIDE 97 mmol/L (97-110); CREATININE 3.11 mg/dl (0.61-1.24); Estimated GFR 20 mL/min (>60); GLUCOSE 184 mg/dl (70-220); POTASSIUM 3.6 mmol/L (3.5-5.1); SODIUM 134 mmol/L (135-144); TOTAL PROTEIN 7.2 g/dl (6.1-8.1)
[2018-11-01] MEDS: LISINOPRIL 20 MG TAB PO (14:14)
[2018-11-01] MEDS: EPOETIN 10000 UNITS/1 ML INJ (ESRD) SC (17:05)
[2018-11-01] MEDS: LACTULOSE 30ML CUP PO (20:33)
[2018-11-01] MEDS: GABAPENTIN 100 MG CAP PO (20:33)
[2018-11-01] MEDS: ESCITALOPRAM 10 MG TAB PO (20:33)
[2018-11-01] MEDS: PROPRANOLOL 10 MG TAB PO (20:34)
[2018-11-02] MEDS: traMADol 50 MG TAB PO (00:10)
[2018-11-02] MEDS: ACCU-CHEK XX (02:00)
[2018-11-02] MEDS: morphine LIQ (10 MG/5 ML) CUP PO (03:16)
[2018-11-02 06:21] LABS: ADD MAN DIFF? NO
[2018-11-02 06:23] LABS: WHITE BLOOD COUNT 3.5 10^3/ul (4.8-10.8)
[2018-11-02 06:23] LABS: ABNORMAL IP MESSAGE 1; BASOPHILS % 0.3 % (0.0-2.0); EOSINOPHILS # 0.2 10^3/ul (0.0-0.5); EOSINOPHILS % 6.3 % (0.0-7.0); HEMATOCRIT 23.5 % (42.0-52.0); HEMOGLOBIN 7.7 g/dl (14.0-18.0); LYMPHOCYTES # 0.7 10^3/ul (0.8-2.9); LYMPHOCYTES % 19.5 % (15.0-51.0); MEAN CORPUSCULAR HEMOGLOBIN 30.7 pg (29.0-33.0); MEAN CORPUSCULAR HGB CONC 32.8 g/dl (32.0-37.0); MEAN CORPUSCULAR VOLUME 93.6 fl (82.0-101.0); MEAN PLATELET VOLUME 12.7 fl (7.4-10.4); MONOCYTE # 0.4 10^3/ul (0.3-0.9); NEUTROPHIL # 2.2 10^3/ul (1.6-7.5); NEUTROPHILS % 61.6 % (39.0-77.0); PLATELET COUNT 56 10^3/UL (140-415); POSITIVE DIFF @See below; RED BLOOD COUNT 2.51 10^6/ul (4.70-6.10); RED CELL DISTRIBUTION WIDTH 18.5 % (11.5-14.5)
[2018-11-02 06:53] LABS: ALANINE AMINOTRANSFERASE 35 IU/L (13-69); ALBUMIN/GLOBULIN RATIO 0.81; ALKALINE PHOSPHATASE 102 IU/L (42-121); ANION GAP 6 (5-13); ASPARTATE AMINO TRANSFERASE 205 IU/L (15-46); BILIRUBIN,INDIRECT 2.8 mg/dl (0-1.1); BILIRUBIN,TOTAL 3.3 mg/dl (0.2-1.3); BLOOD UREA NITROGEN 51 mg/dl (7-20); CALCIUM 8.9 mg/dl (8.4-10.2); CARBON DIOXIDE 31 mmol/L (21-31); CHLORIDE 98 mmol/L (97-110); CREATININE 3.55 mg/dl (0.61-1.24); Estimated GFR 17 mL/min (>60); GLUCOSE 168 mg/dl (70-220); POTASSIUM 3.9 mmol/L (3.5-5.1); SODIUM 135 mmol/L (135-144); TOTAL PROTEIN 6.7 g/dl (6.1-8.1)
[2018-11-02] MEDS: INSULIN ASPART [NOVOLOG] 3 ML PEN SC ×4 (07:39→21:02)
[2018-11-02] MEDS: CHOLECALCIFEROL 1,000 UNIT TAB PO (08:32)
[2018-11-02] MEDS: PANTOPRAZOLE 40 MG INJ IV ×2 (08:32→20:52)
[2018-11-02] MEDS: SUCRALFATE (100 MG/ML) 10ML CUP PO ×3 (08:32→20:52)
[2018-11-02] MEDS: FUROSEMIDE 40 MG TAB PO (08:33)
[2018-11-02] MEDS: LISINOPRIL 20 MG TAB PO (08:33)
[2018-11-02] MEDS: PROPRANOLOL 10 MG TAB PO ×3 (08:33→20:53)
[2018-11-02] MEDS: GABAPENTIN 100 MG CAP PO ×3 (08:33→20:53)
[2018-11-02 12:32] LABS: IMMEDIATE SPIN CROSSMATCH 1 2
[2018-11-02] MEDS: HYDROmorphONE 1 MG/ML SYG IV (15:39)
[2018-11-02] MEDS: LACTULOSE 30ML CUP PO (20:52)
[2018-11-02] MEDS: ESCITALOPRAM 10 MG TAB PO (20:53)
[2018-11-03] MEDS: ACCU-CHEK XX (02:00)
[2018-11-03 06:10] LABS: ADD MAN DIFF? NO
[2018-11-03 06:21] LABS: WHITE BLOOD COUNT 3.3 10^3/ul (4.8-10.8)
[2018-11-03 06:21] LABS: ABNORMAL IP MESSAGE 1; BASOPHILS % 0.6 % (0.0-2.0); EOSINOPHILS # 0.2 10^3/ul (0.0-0.5); EOSINOPHILS % 7.4 % (0.0-7.0); HEMATOCRIT 27.8 % (42.0-52.0); HEMOGLOBIN 8.8 g/dl (14.0-18.0); LYMPHOCYTES # 0.8 10^3/ul (0.8-2.9); LYMPHOCYTES % 23.4 % (15.0-51.0); MEAN CORPUSCULAR HEMOGLOBIN 30.2 pg (29.0-33.0); MEAN CORPUSCULAR HGB CONC 31.7 g/dl (32.0-37.0); MEAN CORPUSCULAR VOLUME 95.5 fl (82.0-101.0); MEAN PLATELET VOLUME 13.3 fl (7.4-10.4); MONOCYTE # 0.4 10^3/ul (0.3-0.9); NEUTROPHIL # 1.8 10^3/ul (1.6-7.5); NEUTROPHILS % 56.3 % (39.0-77.0); PLATELET COUNT 56 10^3/UL (140-415); POSITIVE DIFF @See below; RED BLOOD COUNT 2.91 10^6/ul (4.70-6.10); RED CELL DISTRIBUTION WIDTH 18.2 % (11.5-14.5)
[2018-11-03 06:59] LABS: ALANINE AMINOTRANSFERASE 29 IU/L (13-69); ALBUMIN 3.1 g/dl (3.3-4.9); ALBUMIN/GLOBULIN RATIO 0.79; ALKALINE PHOSPHATASE 120 IU/L (42-121); ANION GAP 9 (5-13); ASPARTATE AMINO TRANSFERASE 149 IU/L (15-46); BILIRUBIN,INDIRECT 1.5 mg/dl (0-1.1); BILIRUBIN,TOTAL 1.6 mg/dl (0.2-1.3); BLOOD UREA NITROGEN 36 mg/dl (7-20); CALCIUM 8.4 mg/dl (8.4-10.2); CARBON DIOXIDE 32 mmol/L (21-31); CHLORIDE 94 mmol/L (97-110); CREATININE 3.31 mg/dl (0.61-1.24); Estimated GFR 19 mL/min (>60); GLUCOSE 168 mg/dl (70-220); SODIUM 135 mmol/L (135-144)
[2018-11-03] MEDS: INSULIN ASPART [NOVOLOG] 3 ML PEN SC ×4 (07:54→21:54)
[2018-11-03] MEDS: PANTOPRAZOLE 40 MG INJ IV ×2 (08:02→21:55)
[2018-11-03] MEDS: SUCRALFATE (100 MG/ML) 10ML CUP PO ×3 (08:02→21:43)
[2018-11-03] MEDS: GABAPENTIN 100 MG CAP PO ×3 (08:03→21:44)
[2018-11-03] MEDS: CHOLECALCIFEROL 1,000 UNIT TAB PO (08:03)
[2018-11-03] MEDS: FUROSEMIDE 40 MG TAB PO (08:03)
[2018-11-03] MEDS: LISINOPRIL 20 MG TAB PO (08:06)
[2018-11-03] MEDS: PROPRANOLOL 10 MG TAB PO ×2 (09:17→21:44)
[2018-11-03] MEDS: EPOETIN 10000 UNITS/1 ML INJ (ESRD) SC (17:21)
[2018-11-03] MEDS: LACTULOSE 30ML CUP PO (21:43)
[2018-11-03] MEDS: ESCITALOPRAM 10 MG TAB PO (21:44)
[2018-11-04] MEDS: ACCU-CHEK XX (02:33)
[2018-11-04 05:49] LABS: ADD MAN DIFF? NO
[2018-11-04 05:55] LABS: WHITE BLOOD COUNT 2.9 10^3/ul (4.8-10.8)
[2018-11-04 05:55] LABS: ABNORMAL IP MESSAGE 1; BASOPHILS % 0.3 % (0.0-2.0); EOSINOPHILS # 0.2 10^3/ul (0.0-0.5); EOSINOPHILS % 5.6 % (0.0-7.0); HEMATOCRIT 26.2 % (42.0-52.0); HEMOGLOBIN 8.5 g/dl (14.0-18.0); LYMPHOCYTES # 0.7 10^3/ul (0.8-2.9); LYMPHOCYTES % 22.9 % (15.0-51.0); MEAN CORPUSCULAR HEMOGLOBIN 30.9 pg (29.0-33.0); MEAN CORPUSCULAR HGB CONC 32.4 g/dl (32.0-37.0); MEAN CORPUSCULAR VOLUME 95.3 fl (82.0-101.0); MEAN PLATELET VOLUME 10.5 fl (7.4-10.4); MONOCYTE # 0.4 10^3/ul (0.3-0.9); MONOCYTES % 12.2 % (0.0-11.0); NEUTROPHIL # 1.7 10^3/ul (1.6-7.5); NEUTROPHILS % 58.7 % (39.0-77.0); PLATELET COUNT 47 10^3/UL (140-415); POSITIVE DIFF @See below; RED BLOOD COUNT 2.75 10^6/ul (4.70-6.10); RED CELL DISTRIBUTION WIDTH 17.9 % (11.5-14.5)
[2018-11-04 06:26] LABS: ANION GAP 6 (5-13); BLOOD UREA NITROGEN 54 mg/dl (7-20); CALCIUM 8.4 mg/dl (8.4-10.2); CARBON DIOXIDE 29 mmol/L (21-31); CHLORIDE 100 mmol/L (97-110); CREATININE 3.95 mg/dl (0.61-1.24); Estimated GFR 15 mL/min (>60); GLUCOSE 164 mg/dl (70-220); POTASSIUM 4.4 mmol/L (3.5-5.1); SODIUM 135 mmol/L (135-144)
[2018-11-04] MEDS: FUROSEMIDE 40 MG TAB PO (07:57)
[2018-11-04] MEDS: GABAPENTIN 100 MG CAP PO ×3 (07:57→20:06)
[2018-11-04] MEDS: CHOLECALCIFEROL 1,000 UNIT TAB PO (07:58)
[2018-11-04] MEDS: PANTOPRAZOLE 40 MG INJ IV ×2 (07:58→20:06)
[2018-11-04] MEDS: LISINOPRIL 20 MG TAB PO (07:58)
[2018-11-04] MEDS: SUCRALFATE (100 MG/ML) 10ML CUP PO ×3 (07:58→20:06)
[2018-11-04] MEDS: PROPRANOLOL 10 MG TAB PO ×3 (07:58→21:00)
[2018-11-04] MEDS: INSULIN ASPART [NOVOLOG] 3 ML PEN SC ×4 (08:12→20:17)
[2018-11-04] MEDS: LACTULOSE 30ML CUP PO (20:06)
[2018-11-04] MEDS: ESCITALOPRAM 10 MG TAB PO (20:06)
[2018-11-04] MEDS: INSULIN GLARGINE [LANTus] (100 UNITS/ML) SYG SC (20:16)
[2018-11-05] MEDS: ACCU-CHEK XX (02:18)
[2018-11-05] MEDS: INSULIN ASPART [NOVOLOG] 3 ML PEN SC ×4 (08:13→21:19)
[2018-11-05] MEDS: POLYETHYLENE GLYCOL 17 GM PACKET PO (09:08)
[2018-11-05] MEDS: PANTOPRAZOLE 40 MG INJ IV (09:08)
[2018-11-05] MEDS: CHOLECALCIFEROL 1,000 UNIT TAB PO (09:09)
[2018-11-05] MEDS: SUCRALFATE (100 MG/ML) 10ML CUP PO ×3 (09:09→21:20)
[2018-11-05] MEDS: GABAPENTIN 100 MG CAP PO ×3 (09:09→21:20)
[2018-11-05] MEDS: LISINOPRIL 20 MG TAB PO (09:10)
[2018-11-05] MEDS: FUROSEMIDE 40 MG TAB PO (09:10)
[2018-11-05] MEDS: PROPRANOLOL 10 MG TAB PO ×2 (09:10→21:00)
[2018-11-05 11:05] LABS: ADD MAN DIFF? NO
[2018-11-05 11:06] LABS: WHITE BLOOD COUNT 3.2 10^3/ul (4.8-10.8)
[2018-11-05 11:06] LABS: ABNORMAL IP MESSAGE 1; BASOPHILS % 0.3 % (0.0-2.0); EOSINOPHILS # 0.2 10^3/ul (0.0-0.5); EOSINOPHILS % 6.2 % (0.0-7.0); HEMATOCRIT 26.9 % (42.0-52.0); HEMOGLOBIN 8.7 g/dl (14.0-18.0); LYMPHOCYTES # 0.6 10^3/ul (0.8-2.9); LYMPHOCYTES % 17.4 % (15.0-51.0); MEAN CORPUSCULAR HEMOGLOBIN 30.5 pg (29.0-33.0); MEAN CORPUSCULAR HGB CONC 32.3 g/dl (32.0-37.0); MEAN CORPUSCULAR VOLUME 94.4 fl (82.0-101.0); MEAN PLATELET VOLUME 12.1 fl (7.4-10.4); MONOCYTE # 0.5 10^3/ul (0.3-0.9); NEUTROPHILS % 61.8 % (39.0-77.0); PLATELET COUNT 58 10^3/UL (140-415); POSITIVE DIFF @See below; RED BLOOD COUNT 2.85 10^6/ul (4.70-6.10); RED CELL DISTRIBUTION WIDTH 17.9 % (11.5-14.5)
[2018-11-05] MEDS: LUBIPROSTONE 24 MCG CAP PO ×2 (12:14→21:20)
[2018-11-05] MEDS ORDERED: ONDANSETRON 4 MG INJ IV (15:30)
[2018-11-05] MEDS ORDERED: traMADol 50 MG TAB GTB (15:30)
[2018-11-05] MEDS ORDERED: ACETAMINOPHEN 325 MG TAB PO (15:30)
[2018-11-05] MEDS: HYDROmorphONE 1 MG/ML SYG IV (15:50)
[2018-11-05] MEDS: INSULIN GLARGINE [LANTus] (100 UNITS/ML) SYG SC (21:17)
[2018-11-05] MEDS: ESCITALOPRAM 10 MG TAB PO (21:20)
[2018-11-05] MEDS: LACTULOSE 30ML CUP PO (21:20)
[2018-11-06] MEDS: ACCU-CHEK XX (02:00)
[2018-11-06 07:30] LABS: AMMONIA 48 umol/l (9-30)
[2018-11-06] MEDS: INSULIN ASPART [NOVOLOG] 3 ML PEN SC ×2 (08:08→11:41)
[2018-11-06] MEDS: GABAPENTIN 100 MG CAP PO (09:00)
[2018-11-06] MEDS: FUROSEMIDE 40 MG TAB PO (09:00)
[2018-11-06] MEDS: PROPRANOLOL 10 MG TAB PO (09:00)
[2018-11-06] MEDS: SUCRALFATE (100 MG/ML) 10ML CUP PO (09:00)
[2018-11-06] MEDS: LISINOPRIL 20 MG TAB PO (09:00)
[2018-11-06] MEDS: LUBIPROSTONE 24 MCG CAP PO (11:21)
[2018-11-06] MEDS: LACTULOSE 30ML CUP PO (11:21)
[2018-11-06] MEDS: POLYETHYLENE GLYCOL 17 GM PACKET PO (11:21)
[2018-11-06] MEDS: CHOLECALCIFEROL 1,000 UNIT TAB PO (11:42)
== END 2018-11-06 13:24 | disposition home or self-care (01) | DRG 377 ==
LOC: 6WM 10-30 19:12 → E/R 07:30 → ICU 09:16
PROVIDERS: Internal Medicine
PROC: 30233N1 Transfusion of Nonautologous Red Blood Cells into Peripheral Vein, Percutaneous Approach (ICD-10-PCS; principal; 2018-10-30 11:00)
PROC: 5A1D70Z Performance of Urinary Filtration, Intermittent, Less than 6 Hours Per Day (ICD-10-PCS; 2018-10-30 11:00)
PROC: 0W3P8ZZ Control Bleeding in Gastrointestinal Tract, Via Natural or Artificial Opening Endoscopic (ICD-10-PCS; 2018-10-30 11:00)
DX: K31.811 Angiodysplasia of stomach and duodenum with bleeding (principal); N18.6 End stage renal disease; I63.9 Cerebral infarction, unspecified; I13.2 Hypertensive heart and chronic kidney disease with heart failure and with stage 5 chronic kidney disease, or end stage renal disease; K76.6 Portal hypertension; D61.818 Other pancytopenia; I85.10 Secondary esophageal varices without bleeding; R13.10 Dysphagia, unspecified; I50.9 Heart failure, unspecified; Z99.2 Dependence on renal dialysis; Z95.4 Presence of other heart-valve replacement; D63.1 Anemia in chronic kidney disease; E66.01 Morbid (severe) obesity due to excess calories; Z68.37 Body mass index [BMI] 37.0-37.9, adult; K74.60 Unspecified cirrhosis of liver; B19.20 Unspecified viral hepatitis C without hepatic coma; F32.9 Major depressive disorder, single episode, unspecified; E11.22 Type 2 diabetes mellitus with diabetic chronic kidney disease; D50.0 Iron deficiency anemia secondary to blood loss (chronic); E11.40 Type 2 diabetes mellitus with diabetic neuropathy, unspecified
CPT/HCPCS: 36415; 36430; 70450; 70551; 71045; 80048; 80053; 80061; 80076; 82140; 82550; 82553; 82962; 83735; 84100; 84443; 84484; 85014; 85018; 85025; 85610; 85730; 86850; 86900; 86901; 86920; 87081; 87086; 87340; 90935; 93005; 93306; 96374; 96375; 96376; 99285-25

== ENCOUNTER → 2018-12-28 | Outpatient (CLI) | payer BC ==
[2018-12-28 08:06] LABS: ADD MAN DIFF? NO
[2018-12-28 08:12] LABS: ABNORMAL IP MESSAGE 1; BASOPHILS % 0.6 % (0.0-2.0); EOSINOPHILS # 0.3 10^3/ul (0.0-0.5); EOSINOPHILS % 5.6 % (0.0-7.0); HEMATOCRIT 28.8 % (42.0-52.0); HEMOGLOBIN 8.9 g/dl (14.0-18.0); MEAN CORPUSCULAR HEMOGLOBIN 31.8 pg (29.0-33.0); MEAN CORPUSCULAR HGB CONC 30.9 g/dl (32.0-37.0); MEAN CORPUSCULAR VOLUME 102.9 fl (82.0-101.0); MEAN PLATELET VOLUME 12.3 fl (7.4-10.4); MONOCYTE # 0.5 10^3/ul (0.3-0.9); MONOCYTES % 8.9 % (0.0-11.0); NEUTROPHIL # 3.6 10^3/ul (1.6-7.5); NEUTROPHILS % 66.5 % (39.0-77.0); PLATELET COUNT 80 10^3/UL (140-415); POSITIVE DIFF @See below; RED CELL DISTRIBUTION WIDTH 15.9 % (11.5-14.5)
[2018-12-28 08:12] LABS: WHITE BLOOD COUNT 5.4 10^3/ul (4.8-10.8)
[2018-12-28 08:32] LABS: ALANINE AMINOTRANSFERASE 24 IU/L (13-69); ALBUMIN 3.7 g/dl (3.3-4.9); ALBUMIN/GLOBULIN RATIO 0.82; ALKALINE PHOSPHATASE 200 IU/L (42-121); ANION GAP 9 (5-13); ASPARTATE AMINO TRANSFERASE 74 IU/L (15-46); BILIRUBIN,INDIRECT 1.3 mg/dl (0-1.1); BILIRUBIN,TOTAL 1.3 mg/dl (0.2-1.3); BLOOD UREA NITROGEN 56 mg/dl (7-20); CALCIUM 8.8 mg/dl (8.4-10.2); CARBON DIOXIDE 32 mmol/L (21-31); CHLORIDE 100 mmol/L (97-110); CREATININE 3.76 mg/dl (0.61-1.24); Estimated GFR 16 mL/min (>60); GLUCOSE 142 mg/dl (70-220); INR 0.98; POTASSIUM 4.3 mmol/L (3.5-5.1); PROTIME 13.1 Sec (11.9-14.9); SODIUM 141 mmol/L (135-144); TOTAL PROTEIN 8.2 g/dl (6.1-8.1)
[2018-12-28 08:33] LABS: PARTIAL THROMBOPLASTIN TIME 35.6 Sec (23.0-35.0)
== END | disposition home or self-care (01) ==
LOC: LAB 07:30
DX: N18.9 Chronic kidney disease, unspecified (principal); D68.9 Coagulation defect, unspecified; B19.20 Unspecified viral hepatitis C without hepatic coma
CPT/HCPCS: 80053; 85025; 85610; 85730; 86803

== ENCOUNTER → 2019-01-28 | Outpatient (CLI) | payer BC ==
[2019-01-28 17:34] LABS: ADD MAN DIFF? NO
[2019-01-28 17:36] LABS: ABNORMAL IP MESSAGE 1; BASOPHILS % 0.6 % (0.0-2.0); EOSINOPHILS # 0.3 10^3/ul (0.0-0.5); HEMATOCRIT 26.1 % (42.0-52.0); LYMPHOCYTES # 0.8 10^3/ul (0.8-2.9); LYMPHOCYTES % 17.3 % (15.0-51.0); MEAN CORPUSCULAR HEMOGLOBIN 31.3 pg (29.0-33.0); MEAN CORPUSCULAR HGB CONC 30.7 g/dl (32.0-37.0); MEAN PLATELET VOLUME 11.8 fl (7.4-10.4); MONOCYTE # 0.4 10^3/ul (0.3-0.9); MONOCYTES % 7.3 % (0.0-11.0); NEUTROPHIL # 3.3 10^3/ul (1.6-7.5); NEUTROPHILS % 68.6 % (39.0-77.0); PLATELET COUNT 79 10^3/UL (140-415); POSITIVE DIFF @See below; RED BLOOD COUNT 2.56 10^6/ul (4.70-6.10); RED CELL DISTRIBUTION WIDTH 15.9 % (11.5-14.5)
[2019-01-28 17:36] LABS: WHITE BLOOD COUNT 4.8 10^3/ul (4.8-10.8)
[2019-01-28 17:54] LABS: ALANINE AMINOTRANSFERASE 24 IU/L (13-69); ALBUMIN 3.8 g/dl (3.3-4.9); ALBUMIN/GLOBULIN RATIO 0.92; ALKALINE PHOSPHATASE 188 IU/L (42-121); ANION GAP 10 (5-13); ASPARTATE AMINO TRANSFERASE 64 IU/L (15-46); BILIRUBIN,INDIRECT 1.2 mg/dl (0-1.1); BILIRUBIN,TOTAL 1.2 mg/dl (0.2-1.3); BLOOD UREA NITROGEN 84 mg/dl (7-20); CALCIUM 8.6 mg/dl (8.4-10.2); CARBON DIOXIDE 28 mmol/L (21-31); CHLORIDE 101 mmol/L (97-110); CREATININE 5.42 mg/dl (0.61-1.24); Estimated GFR 11 mL/min (>60); GLUCOSE 300 mg/dl (70-220); POTASSIUM 4.7 mmol/L (3.5-5.1); SODIUM 139 mmol/L (135-144); TOTAL PROTEIN 7.9 g/dl (6.1-8.1)
== END | disposition home or self-care (01) ==
LOC: LAB 17:09
DX: D64.9 Anemia, unspecified (principal); N18.9 Chronic kidney disease, unspecified; K74.60 Unspecified cirrhosis of liver
CPT/HCPCS: 80053; 85025

== ENCOUNTER 2019-03-09 15:59 | Inpatient (IN) | payer BC ==
[2019-03-09] MEDS ORDERED: SODIUM CHLORIDE 0.9% 1L BAG IV* (17:06)
[2019-03-09 17:31] LABS: WHITE BLOOD COUNT 3.2 10^3/ul (4.8-10.8)
[2019-03-09 17:31] LABS: ABNORMAL IP MESSAGE 1; HEMATOCRIT 23.7 % (42.0-52.0); HEMOGLOBIN 7.3 g/dl (14.0-18.0); MEAN CORPUSCULAR HEMOGLOBIN 31.6 pg (29.0-33.0); MEAN CORPUSCULAR HGB CONC 30.8 g/dl (32.0-37.0); MEAN CORPUSCULAR VOLUME 102.6 fl (82.0-101.0); MEAN PLATELET VOLUME 11.2 fl (7.4-10.4); PLATELET COUNT 65 10^3/UL (140-415); POSITIVE DIFF @See below; RED BLOOD COUNT 2.31 10^6/ul (4.70-6.10); RED CELL DISTRIBUTION WIDTH 17.1 % (11.5-14.5)
[2019-03-09 17:38] LABS: ADD UMIC YES; UR ASCORBIC ACID NEGATIVE (NEGATIVE); UR BILIRUBIN (Dip) NEGATIVE (NEGATIVE); UR BLOOD (Dip) 2+ mg/dL (NEGATIVE); UR CLARITY SLIGHTLY CLOUDY (CLEAR); UR COLOR AMBER (YELLOW); UR GLUCOSE (Dip) NEGATIVE (NEGATIVE); UR KETONES (Dip) NEGATIVE (NEGATIVE); UR LEUKOCYTE ESTERASE (Dip) NEGATIVE Leu/ul (NEGATIVE); UR NITRITE (Dip) NEGATIVE (NEGATIVE); UR RBC 1 /HPF (0-5); UR SPECIFIC GRAVITY (Dip) 1.016 (1.003-1.030); UR TOTAL PROTEIN (Dip) 2+ mg/dl (NEGATIVE); UR UROBILINOGEN (Dip) 2+ mg/dL (NEGATIVE); UR WBC 1 /HPF (0-5)
[2019-03-09 17:42] LABS: ADD MAN DIFF? YES
[2019-03-09 17:48] LABS: INR 1.07; PT RATIO 1.1
[2019-03-09 17:53] LABS: PARTIAL THROMBOPLASTIN TIME 43.7 Sec (23.0-35.0)
[2019-03-09 17:54] LABS: ALANINE AMINOTRANSFERASE 34 IU/L (13-69); ALBUMIN 3.4 g/dl (3.3-4.9); ALBUMIN/GLOBULIN RATIO 0.87; ALKALINE PHOSPHATASE 109 IU/L (42-121); ANION GAP 9 (5-13); ASPARTATE AMINO TRANSFERASE 76 IU/L (15-46); BILIRUBIN,INDIRECT 0.9 mg/dl (0-1.1); BILIRUBIN,TOTAL 0.9 mg/dl (0.2-1.3); BLOOD UREA NITROGEN 49 mg/dl (7-20); CALCIUM 7.5 mg/dl (8.4-10.2); CARBON DIOXIDE 31 mmol/L (21-31); CHLORIDE 97 mmol/L (97-110); CREATININE 4.04 mg/dl (0.61-1.24); Estimated GFR 15 mL/min (>60); GLUCOSE 116 mg/dl (70-220); POTASSIUM 3.8 mmol/L (3.5-5.1); SODIUM 137 mmol/L (135-144); TOTAL PROTEIN 7.3 g/dl (6.1-8.1)
[2019-03-09] MEDS: LEVOFLOXACIN 750MG/D5W (PMX) 150 ML IVPB (18:15)
[2019-03-09 18:37] LABS: TROPONIN-I 0.146 ng/ml (0.000-0.120)
[2019-03-09] MEDS: ALBUTEROL 0.083% (NEB) 2.5 MG/3 ML AMP NEB (18:56)
[2019-03-09] MEDS ORDERED: ONDANSETRON 4 MG INJ IV (19:00)
[2019-03-09] MEDS: ASPIRIN 81 MG TAB PO (19:00)
[2019-03-09 19:13] LABS: ANISOCYTOSIS 1+ (0-0); BAND NEUTROPHILS #M 0.2 10^3/ul (0.0-0.6); BAND NEUTROPHILS % (M) 7 % (0-4); BASOPHILS % (M) 1 % (0-2); EOSINOPHILS % (M) 1 % (0-7); LYMPHOCYTES #M 0.4 10^3/ul (0.8-2.9); LYMPHOCYTES % (M) 15 % (15-51); MICROCYTOSIS 1+ (0-0); MONOCYTE #M 0.3 10^3/ul (0.3-0.9); MONOCYTES % (M) 10 % (0-11); OVALOCYTES 1+ (0-0); PLATELET ESTIMATE DECREASED; POIKILOCYTOSIS 1+ (0-0); POLYCHROMASIA 1+ (0-0); SEG NEUT #M 2.1 10^3/ul (1.6-7.5); SEGMENTED NEUTROPHILS (M) % 66 % (39-77); SMUDGE%M 3 % (0-0)
[2019-03-09] MEDS: ACETAMINOPHEN 325 MG TAB PO (19:59)
[2019-03-09] MEDS ORDERED: GLUCOSE GEL 15 GRAM TUBE PO ×2 (23:30)
[2019-03-09] MEDS ORDERED: GLUCOSE GEL 15 GRAM TUBE BUCCAL (23:30)
[2019-03-09] MEDS ORDERED: ACETAMINOPHEN 325 MG TAB PO (23:30)
[2019-03-09] MEDS ORDERED: GLUCAGON 1 MG INJ IM (23:30)
[2019-03-09] MEDS ORDERED: DEXTROSE 50% 50 ML SYRINGE IV ×2 (23:30)
[2019-03-10] MEDS: GUAIFENESIN/DM 5ML CUP PO (00:02)
[2019-03-10] MEDS: INSULIN GLARGINE [LANTus] (100 UNITS/ML) SYG SC ×2 (01:16→20:23)
[2019-03-10] MEDS: ACCU-CHEK XX (01:53)
[2019-03-10 06:02] LABS: TROPONIN-I 0.099 ng/ml (0.000-0.120)
[2019-03-10] MEDS: PANTOPRAZOLE (EC) 40 MG TAB PO (06:10)
[2019-03-10] MEDS: INSULIN ASPART [NOVOLOG] 3 ML PEN SC ×4 (08:00→20:12)
[2019-03-10] MEDS ORDERED: AMLODIPINE 5 MG TAB PO (09:00)
[2019-03-10] MEDS: PROPRANOLOL 10 MG TAB PO ×4 (09:00→20:17)
[2019-03-10] MEDS: AMLODIPINE 5 MG TAB PO ×2 (09:00)
[2019-03-10] MEDS ORDERED: PROPRANOLOL 10 MG TAB PO (09:00)
[2019-03-10] MEDS: SUCRALFATE (100 MG/ML) 10ML CUP PO ×3 (09:04→20:16)
[2019-03-10] MEDS: CHOLECALCIFEROL 1,000 UNIT TAB PO (09:05)
[2019-03-10] MEDS ORDERED: EPOETIN ALFA-EPBX (ESRD) 10,000 UNIT/ML VIAL IV (11:00)
[2019-03-10] MEDS: AZITHROMYCIN 250 MG TAB PO ×2 (13:30→20:17)
[2019-03-10 14:19] LABS: HEPATITIS B SURFACE ANTIGEN NEGATIVE (NEGATIVE)
[2019-03-10 16:33] LABS: IMMEDIATE SPIN CROSSMATCH 1 2
[2019-03-10] MEDS ORDERED: INSULIN GLARGINE [LANTus] (100 UNITS/ML) SYG SC ×2 (20:00→21:00)
[2019-03-10] MEDS: ESCITALOPRAM 10 MG TAB PO (20:16)
[2019-03-10] MEDS: LACTULOSE 30ML CUP PO (20:16)
[2019-03-10] MEDS: ATORVASTATIN 10 MG TAB PO (20:17)
[2019-03-10] MEDS ORDERED: NON-FORMULARY/PATIENT OWN MED (Simvastatin* (Zocor*) 20 MG) PO (21:00)
[2019-03-10] MEDS: LORAZEPAM 0.5 MG TAB PO (21:22)
[2019-03-11] MEDS: morphine 4 MG/ML VIAL IV (00:18)
[2019-03-11] MEDS: ACCU-CHEK XX (01:30)
[2019-03-11] MEDS: PANTOPRAZOLE (EC) 40 MG TAB PO (06:44)
[2019-03-11] MEDS: INSULIN ASPART [NOVOLOG] 3 ML PEN SC (08:00)
[2019-03-11] MEDS: AZITHROMYCIN 250 MG TAB PO (08:45)
[2019-03-11] MEDS: AMLODIPINE 5 MG TAB PO (08:45)
[2019-03-11] MEDS: CHOLECALCIFEROL 1,000 UNIT TAB PO (08:46)
[2019-03-11] MEDS: SUCRALFATE (100 MG/ML) 10ML CUP PO (08:46)
[2019-03-11] MEDS: PROPRANOLOL 10 MG TAB PO (08:47)
[2019-03-11 09:14] LABS: ADD MAN DIFF? NO
[2019-03-11 09:19] LABS: ABNORMAL IP MESSAGE 1; BASOPHILS % 0.5 % (0.0-2.0); EOSINOPHILS # 0.3 10^3/ul (0.0-0.5); EOSINOPHILS % 6.6 % (0.0-7.0); HEMATOCRIT 29.1 % (42.0-52.0); LYMPHOCYTES % 26.5 % (15.0-51.0); MEAN CORPUSCULAR HEMOGLOBIN 30.5 pg (29.0-33.0); MEAN CORPUSCULAR HGB CONC 30.9 g/dl (32.0-37.0); MEAN CORPUSCULAR VOLUME 98.6 fl (82.0-101.0); MEAN PLATELET VOLUME 12.6 fl (7.4-10.4); MONOCYTE # 0.4 10^3/ul (0.3-0.9); MONOCYTES % 10.6 % (0.0-11.0); NEUTROPHIL # 2.1 10^3/ul (1.6-7.5); NEUTROPHILS % 55.3 % (39.0-77.0); PLATELET COUNT 93 10^3/UL (140-415); POSITIVE DIFF @See below; RED BLOOD COUNT 2.95 10^6/ul (4.70-6.10); RED CELL DISTRIBUTION WIDTH 17.8 % (11.5-14.5)
[2019-03-11 09:19] LABS: WHITE BLOOD COUNT 3.8 10^3/ul (4.8-10.8)
[2019-03-11 09:39] LABS: ALANINE AMINOTRANSFERASE 30 IU/L (13-69); ALBUMIN 3.5 g/dl (3.3-4.9); ALBUMIN/GLOBULIN RATIO 0.81; ALKALINE PHOSPHATASE 109 IU/L (42-121); ANION GAP 8 (5-13); ASPARTATE AMINO TRANSFERASE 94 IU/L (15-46); BILIRUBIN,INDIRECT 1.1 mg/dl (0-1.1); BILIRUBIN,TOTAL 1.1 mg/dl (0.2-1.3); BLOOD UREA NITROGEN 39 mg/dl (7-20); CALCIUM 7.4 mg/dl (8.4-10.2); CARBON DIOXIDE 30 mmol/L (21-31); CHLORIDE 100 mmol/L (97-110); CREATININE 3.77 mg/dl (0.61-1.24); Estimated GFR 16 mL/min (>60); GLUCOSE 108 mg/dl (70-220); POTASSIUM 4.2 mmol/L (3.5-5.1); SODIUM 138 mmol/L (135-144); TOTAL PROTEIN 7.8 g/dl (6.1-8.1)
== END 2019-03-11 11:22 | disposition home or self-care (01) | DRG 202 ==
LOC: 6WM 03-10 15:18 → E/R 15:59 → 6WM 18:39
PROC: 30233N1 Transfusion of Nonautologous Red Blood Cells into Peripheral Vein, Percutaneous Approach (ICD-10-PCS; principal; 2019-03-10)
PROC: 5A1D70Z Performance of Urinary Filtration, Intermittent, Less than 6 Hours Per Day (ICD-10-PCS; 2019-03-10)
DX: J20.9 Acute bronchitis, unspecified (principal); N18.6 End stage renal disease; I12.0 Hypertensive chronic kidney disease with stage 5 chronic kidney disease or end stage renal disease; K76.6 Portal hypertension; D61.818 Other pancytopenia; E11.22 Type 2 diabetes mellitus with diabetic chronic kidney disease; Z99.2 Dependence on renal dialysis; K74.69 Other cirrhosis of liver; B19.20 Unspecified viral hepatitis C without hepatic coma; R16.1 Splenomegaly, not elsewhere classified
CPT/HCPCS: 36415; 36430; 71045; 80053; 81001; 82962; 83605; 84484; 85025; 85610; 85730; 86850; 86900; 86901; 86920; 87040-91; 87081; 87086; 87340; 90935; 93005; 94664; 96374; 99285-25

== ENCOUNTER 2019-03-20 10:59 | Inpatient (IN) | payer BC, MEDICARE ==
[2019-03-20] MEDS: ONDANSETRON 4 MG INJ IV (11:54)
[2019-03-20 12:00] LABS: ADD MAN DIFF? NO
[2019-03-20 12:06] LABS: WHITE BLOOD COUNT 6.6 10^3/ul (4.8-10.8)
[2019-03-20 12:06] LABS: ABNORMAL IP MESSAGE 1; BASOPHILS % 0.5 % (0.0-2.0); EOSINOPHILS # 0.2 10^3/ul (0.0-0.5); EOSINOPHILS % 3.6 % (0.0-7.0); HEMATOCRIT 32.2 % (42.0-52.0); HEMOGLOBIN 10.1 g/dl (14.0-18.0); LYMPHOCYTES % 15.2 % (15.0-51.0); MEAN CORPUSCULAR HEMOGLOBIN 31.6 pg (29.0-33.0); MEAN CORPUSCULAR HGB CONC 31.4 g/dl (32.0-37.0); MEAN CORPUSCULAR VOLUME 100.6 fl (82.0-101.0); MEAN PLATELET VOLUME 12.3 fl (7.4-10.4); MONOCYTE # 0.6 10^3/ul (0.3-0.9); MONOCYTES % 9.7 % (0.0-11.0); NEUTROPHIL # 4.6 10^3/ul (1.6-7.5); NEUTROPHILS % 70.2 % (39.0-77.0); POSITIVE DIFF @See below; RED CELL DISTRIBUTION WIDTH 18.4 % (11.5-14.5)
[2019-03-20 12:18] LABS: ALANINE AMINOTRANSFERASE 33 IU/L (13-69); ALBUMIN 3.7 g/dl (3.3-4.9); ALKALINE PHOSPHATASE 182 IU/L (42-121); ANION GAP 11 (5-13); ASPARTATE AMINO TRANSFERASE 76 IU/L (15-46); BILIRUBIN,INDIRECT 1.2 mg/dl (0-1.1); BILIRUBIN,TOTAL 1.2 mg/dl (0.2-1.3); BLOOD UREA NITROGEN 53 mg/dl (7-20); CALCIUM 8.2 mg/dl (8.4-10.2); CARBON DIOXIDE 28 mmol/L (21-31); CHLORIDE 96 mmol/L (97-110); Estimated GFR 10 mL/min (>60); GLUCOSE 289 mg/dl (70-220); POTASSIUM 4.4 mmol/L (3.5-5.1); SODIUM 135 mmol/L (135-144); TOTAL PROTEIN 8.3 g/dl (6.1-8.1)
[2019-03-20 12:21] LABS: PLATELET COUNT 73 10^3/UL (140-415)
[2019-03-20 12:23] LABS: INR 1.05; PROTIME 13.8 Sec (11.9-14.9); PT RATIO 1.1
[2019-03-20 12:30] LABS: TROPONIN-I 0.024 ng/ml (0.000-0.120)
[2019-03-20] MEDS ORDERED: ACETAMINOPHEN 325 MG TAB PO ×2 (12:30→20:30)
[2019-03-20] MEDS ORDERED: ONDANSETRON 4 MG INJ IV ×2 (12:30→20:30)
[2019-03-20] MEDS: OCTREOTIDE 50 MCG in SOD CHLORIDE 0.9% 25 ML IVPB (12:44)
[2019-03-20] MEDS: OCTREOTIDE 500 MCG in SOD CHLORIDE 0.9% 49 ML IV (13:20)
[2019-03-20 13:39] LABS: ANISOCYTOSIS 1+ (0-0); EOSINOPHILS % (M) 6 % (0-7); LYMPHOCYTES #M 1.1 10^3/ul (0.8-2.9); LYMPHOCYTES % (M) 17 % (15-51); MICROCYTOSIS 1+ (0-0); MONOCYTE #M 0.1 10^3/ul (0.3-0.9); MONOCYTES % (M) 3 % (0-11); PLATELET ESTIMATE DECREASED; POIKILOCYTOSIS 1+ (0-0); POLYCHROMASIA 1+ (0-0); SEGMENTED NEUTROPHILS (M) % 74 % (39-77); SMUDGE%M 1 % (0-0); SPHEROCYTES 1+ (0-0)
[2019-03-20] MEDS ORDERED: NACL 0.9% 3 ML SYG IV (20:30)
[2019-03-20] MEDS ORDERED: GLUCAGON 1 MG INJ IM (21:00)
[2019-03-20] MEDS ORDERED: GLUCOSE GEL 15 GRAM TUBE BUCCAL (21:00)
[2019-03-20] MEDS ORDERED: GLUCOSE GEL 15 GRAM TUBE PO ×2 (21:00)
[2019-03-20] MEDS ORDERED: DEXTROSE 50% 50 ML SYRINGE IV ×2 (21:00)
[2019-03-20] MEDS: SUCRALFATE (100 MG/ML) 10ML CUP PO (21:34)
[2019-03-20] MEDS: LACTULOSE 30ML CUP PO (21:35)
[2019-03-20] MEDS: ESCITALOPRAM 10 MG TAB PO (21:35)
[2019-03-20] MEDS: PROPRANOLOL 10 MG TAB PO (21:35)
[2019-03-20] MEDS: PANTOPRAZOLE (EC) 40 MG TAB PO (21:35)
[2019-03-20] MEDS: INSULIN ASPART [NOVOLOG] 3 ML PEN SC (22:27)
[2019-03-20] MEDS: INSULIN GLARGINE [LANTus] (100 UNITS/ML) SYG SC (22:28)
[2019-03-21] MEDS: ACCU-CHEK XX (02:38)
[2019-03-21 06:10] LABS: ADD MAN DIFF? NO
[2019-03-21 06:16] LABS: WHITE BLOOD COUNT 7.6 10^3/ul (4.8-10.8)
[2019-03-21 06:16] LABS: BASOPHILS % 0.4 % (0.0-2.0); EOSINOPHILS # 0.3 10^3/ul (0.0-0.5); EOSINOPHILS % 4.5 % (0.0-7.0); HEMATOCRIT 32.5 % (42.0-52.0); LYMPHOCYTES % 13.4 % (15.0-51.0); MEAN CORPUSCULAR HEMOGLOBIN 30.7 pg (29.0-33.0); MEAN CORPUSCULAR HGB CONC 30.8 g/dl (32.0-37.0); MEAN CORPUSCULAR VOLUME 99.7 fl (82.0-101.0); MEAN PLATELET VOLUME 12.2 fl (7.4-10.4); MONOCYTE # 0.7 10^3/ul (0.3-0.9); MONOCYTES % 9.4 % (0.0-11.0); NEUTROPHIL # 5.5 10^3/ul (1.6-7.5); PLATELET COUNT 107 10^3/UL (140-415); RED BLOOD COUNT 3.26 10^6/ul (4.70-6.10)
[2019-03-21 06:56] LABS: ALANINE AMINOTRANSFERASE 21 IU/L (13-69); ALBUMIN 3.9 g/dl (3.3-4.9); ALBUMIN/GLOBULIN RATIO 0.81; ALKALINE PHOSPHATASE 133 IU/L (42-121); ANION GAP 12 (5-13); ASPARTATE AMINO TRANSFERASE 90 IU/L (15-46); BILIRUBIN,INDIRECT 1.3 mg/dl (0-1.1); BILIRUBIN,TOTAL 1.3 mg/dl (0.2-1.3); BLOOD UREA NITROGEN 60 mg/dl (7-20); CALCIUM 8.5 mg/dl (8.4-10.2); CARBON DIOXIDE 30 mmol/L (21-31); CHLORIDE 97 mmol/L (97-110); Estimated GFR 8 mL/min (>60); GLUCOSE 150 mg/dl (70-220); POTASSIUM 4.8 mmol/L (3.5-5.1); SODIUM 139 mmol/L (135-144); TOTAL PROTEIN 8.7 g/dl (6.1-8.1)
[2019-03-21] MEDS: SUCRALFATE (100 MG/ML) 10ML CUP PO ×3 (08:10→20:36)
[2019-03-21] MEDS: PANTOPRAZOLE (EC) 40 MG TAB PO ×2 (08:10→20:36)
[2019-03-21] MEDS: CHOLECALCIFEROL 1,000 UNIT TAB PO (08:11)
[2019-03-21] MEDS: PROPRANOLOL 10 MG TAB PO ×3 (08:12→20:41)
[2019-03-21] MEDS: INSULIN ASPART [NOVOLOG] 3 ML PEN SC ×3 (08:23→17:13)
[2019-03-21] MEDS: LACTULOSE 30ML CUP PO (20:36)
[2019-03-21] MEDS: ESCITALOPRAM 10 MG TAB PO (20:36)
[2019-03-21] MEDS: INSULIN GLARGINE [LANTus] (100 UNITS/ML) SYG SC (21:32)
== END 2019-03-21 21:05 | disposition home or self-care (01) | DRG 393 ==
LOC: E/R 10:59 → TEL 12:28
DX: K64.9 Unspecified hemorrhoids (principal); N18.6 End stage renal disease; K76.6 Portal hypertension; K62.5 Hemorrhage of anus and rectum; D63.1 Anemia in chronic kidney disease; B18.2 Chronic viral hepatitis C; D69.6 Thrombocytopenia, unspecified; K74.60 Unspecified cirrhosis of liver; E11.22 Type 2 diabetes mellitus with diabetic chronic kidney disease; E66.9 Obesity, unspecified; Z99.2 Dependence on renal dialysis; Z87.891 Personal history of nicotine dependence
CPT/HCPCS: 36415; 71045; 80053; 82962; 84484; 85025; 85610; 85730; 86850; 86900; 86901; 90935; 93005; 96374; 96375; 99285-25